=== PATIENT | male | born 1975 | race Caucasian/White ===

== ENCOUNTER 2021-07-06 13:59 | Outpatient (REF) | payer BC, SELFPAY ==
[2021-07-06 16:50] LABS: Alanine Aminotransferase 26 U/L (0-40); Anion Gap 14 (12-20); Aspartate Amino Transferase 21 U/L (5-37); Blood Urea Nitrogen 19 mg/dL (9-16); Calcium 9.7 mg/dL (8.4-10.2); Carbon Dioxide 26 mmol/L (22-29); Chloride 105 mmol/L (96-108); Cholesterol 212 mg/dL; Estimated Glomerular Filt Rate > 60; Glucose Fasting 76 mg/dL (60-99); HDL Cholesterol 50 mg/dL; LDL Cholesterol Calculated 145 mg/dl; Potassium 4.5 mmol/L (3.3-5.1); Sodium 140 mmol/L (135-145); Triglycerides 89 mg/dL
== END 2021-07-06 14:00 | disposition home or self-care (01) ==
LOC: HO.HMGCLDS 13:59
PROVIDERS: PCP Internal Medicine; Visit Provider Internal Medicine
DX: Z00.00 Encounter for general adult medical examination without abnormal findings (principal); E66.9 Obesity, unspecified; I10 Essential (primary) hypertension; R06.83 Snoring; R06.81 Apnea, not elsewhere classified
CPT/HCPCS: 36415; 80048; 80061; 84450; 84460

== ENCOUNTER → 2021-10-02 08:07 | Outpatient (BNVA) | payer BC, SELFPAY | PROVIDERS: PCP Internal Medicine; Referring Provider Internal Medicine; Visit Provider Nurse Practitioner Family ==

== ENCOUNTER → 2021-10-22 15:12 | Outpatient (REF) | payer BC, SELFPAY | LOC: HO.SL 15:12 | PROVIDERS: Visit Provider Nurse Practitioner Family | DX: G47.19 Other hypersomnia (principal); G47.9 Sleep disorder, unspecified; R06.81 Apnea, not elsewhere classified; R06.83 Snoring | CPT/HCPCS: 95806 ==

== ENCOUNTER → 2022-01-01 12:47 | Outpatient (BNVA) | payer BC, SELFPAY | PROVIDERS: PCP Internal Medicine; Referring Provider Internal Medicine; Visit Provider Nurse Practitioner Family ==

== ENCOUNTER → 2022-04-21 19:30 | Outpatient (REF) | payer BC, SELFPAY | LOC: HO.SL 19:30 | PROVIDERS: Visit Provider Nurse Practitioner Family | DX: G47.33 Obstructive sleep apnea (adult) (pediatric) (principal) | CPT/HCPCS: 95811 ==

== ENCOUNTER 2022-10-12 10:23 | Outpatient (REF) | payer BC, SELFPAY ==
--- NOTE | ~2022-10-12 | XR_ITS ---
EXAMINATION: XR KNEE AP STANDING CLINICAL INFORMATION: Right knee pain COMPARISON: None TECHNIQUE: AP and lateral views of both knees obtained. FINDINGS: Right: Bone alignment is normal. No fracture or dislocation. Normal joint spaces. No joint effusion. Left: Bone alignment is normal. No fracture or dislocation. Normal joint spaces. No joint effusion. XR/XR knee standing BI IMPRESSION: Normal knees.
[2022-10-12 13:44] LABS: Alanine Aminotransferase 24 U/L (0-40); Anion Gap 14 (12-20); Aspartate Amino Transferase 21 U/L (5-37); Blood Urea Nitrogen 22 mg/dL (9-16); Calcium 9.9 mg/dL (8.4-10.2); Carbon Dioxide 30 mmol/L (22-29); Chloride 105 mmol/L (96-108); Cholesterol 225 mg/dL; Estimated Glomerular Filt Rate > 60; Glucose Fasting 90 mg/dL (60-99); HDL Cholesterol 54 mg/dL; LDL Cholesterol Calculated 140 mg/dl; Potassium 4.6 mmol/L (3.3-5.1); Sodium 144 mmol/L (135-145); Triglycerides 158 mg/dL
== END 2022-10-12 10:24 | disposition home or self-care (01) ==
LOC: HO.HMGCLDS 10:23
PROVIDERS: PCP Internal Medicine; Visit Provider Internal Medicine
DX: Z00.01 Encounter for general adult medical examination with abnormal findings (principal); M25.562 Pain in left knee; M25.561 Pain in right knee; E66.9 Obesity, unspecified; E78.5 Hyperlipidemia, unspecified
CPT/HCPCS: 36415; 73565; 80048; 80061; 84450; 84460

== ENCOUNTER 2022-10-28 14:00 | Outpatient (RCR) | payer BC, SELFPAY ==
--- NOTE | 2022-10-25 08:06 | MHC.PT.EP ---
[facility] [place] [facility] [place] [facility] [place] [facility] [address] Bradley Horta [address] [phone] F: [phone] F: [phone] F: [phone] F: [phone] Physical Therapy Plan of Care Date of Evaluation: Date of Surgery: Diagnosis: LBP Assessment: 47 y/o male referred to PT with low back pain resulting in pain and difficulty with sitting, standing for prolonged periods, twisting, lifting, and sleeping. S/s consistent with low back with contributions from postural imbalance, decreased core/hip strength, gowers sign from squat and returning from flexion, decreased quad/ piriformis length, and increased pain. Recommend PT 2x/week for 4 weeks to address impairments, implement HEP, and optimize functional mobility Frequency and Duration: The patient will be seen 2x/week for 4 weeks Short Term Goals: 3 weeks 1. Compliant with HEP 2. Compliant with lumbar roll in sitting 3. Improve lumbar AROM flexion to 100% and extension to 75% Product Grader Goals: 5 weeks 1. I with HEP and self management of sx 2. Improve glut med strength to 4/5 B to faciliate standing posture and decrease strain on LB 3. Demonstrate 5-10% improvement in Oswestry (IR 14/35 40% disability) Treatment Plan: Modalities to reduce pain, spasms and effusion. Manual therapy to restore motion and function. Therapeutic exercise to improve strength and flexibility. Neuromuscular re-education for posture and balance. Therapeutic activities to return to functional activities of daily living. Electronically signed by: Hattie Thomas PT Please sign and return to therapist. Thank you for your referral.
--- NOTE | 2022-12-09 07:26 | MHC.PT.DC ---
[facility] [place] [facility] [place] [facility] [place] [facility] [address] Bradley Horta [address] [phone] F: [phone] F: [phone] F: [phone] F: [phone] Physical Therapy Discharge Report Diagnosis: LBP Date of Surgery: Date of Evaluation: 10/25/22 Date of Discharge: 12/09/22 Treatments to Date: 2 Cancellations to Date: 0 No Shows to Date: 1 Discharge Status: Visit Non-compliance Discharge Summary: Pt did not follow up with further visits and is d/c at this time. He had initial HEP but only attended one visit following evaluation and then no showed further visits. Electronically signed by: Hattie Thomas PT Please sign and return to therapist. Thank you for your referral.
== END 2022-12-09 07:26 | disposition home or self-care (01) ==
LOC: HO.PTCHIC 14:00
PROVIDERS: PCP Internal Medicine; Visit Provider Internal Medicine
DX: M54.50 Low back pain, unspecified (principal); M51.36 Other intervertebral disc degeneration, lumbar region
CPT/HCPCS: 97110; 97112; 97161

== ENCOUNTER 2023-10-07 07:56 | Outpatient (AMB) | payer BC, SELFPAY ==
--- NOTE | 2023-10-07 08:10 | A.OFFPC_ITS ---
Vital Signs 10/07/23 08:11 Height 6 ft 2 in Weight 268 lb BMI 34.4 BP 110/70 Blood Pressure Location Rt brachial Position Sitting Pulse 69 Pulse Source Pulse Oximeter Pulse Oximetry (%) 97 Oxygen Delivery Method Room Air Intake Visit Reasons: annual PE Intake Note: Pt is here today for his PE Allergies No Known Allergies [No Known Allergies*] Allergy (Verified 10/07/23 08:16) Medication List - Last Reconciled 10/07/23 by Umm Gonzalez MD No Known Home Meds Tobacco use date assessed: 10/07/23 Dental Screening Dental Screen Date: 10/07/23 Did you have a dental visit in the last 12 months?: Yes Did you have a dental problem in the last 6 months where you did not have access to dental care?: No Was dental information given to patient?: Patient has dentist HPI annual PE HPI Details 48-year-old male with dyslipidemia, obst ructive sleep apnea, and obesity, presents today for his physical exam. He was diagnosed to have obstructive sleep apnea last year, was prescribed a nasal mask but was unable to use it consistently due to his irregular work schedule, where in he has to be out at different times of the day and night , and had to return it to the sleep lab. He has been feeling well however, tries to cut back on his carbohydrate intake, but has not been able to do any regular exercise, states that he is too busy at work. He is overdue to get his screening colonoscopy, will be getting it at the [facility], and states he will schedule own appointment. He has not had any COVID vaccinations, and does not want to get a flu vaccine or any other vaccines. 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 Has been having recurrent pain in both knees, which started ever since he had surgery for repair of a meniscal tear in his right knee done [place] [facility] [facility] Medical History (Updated 10/07/23 @ 08:22 by Umm Gonzalez MD) Dyslipidemia Lumbar degenerative disc disease Obesity (BMI 30.0-34.9) Surgical History H/O right knee surgery H/O shoulder surgery Family History Mother No problems noted. Father No problems noted. Social History Housing: House Alcohol intake: current Alcohol intake frequency: a few times a week Alcohol type: beer Patient Tobacco Use Status: Never used Tobacco e-Cigarette/Vaping Use: Never Used Second Hand Smoke Exposure: No service: Yes Current occupational status: employed Cognitive needs: No Hearing needs: No Vision needs: No Questionnaire PHQ-9 Over the last 2 weeks, how often have you been bothered by any of the following problems? 1. Little interest or pleasure in doing things: not at all 2. Feeling down, depressed, or hopeless: not at all 3. Trouble falling or staying asleep, or sleeping too much: not at all 4. Feeling tired or having little energy: not at all 5. Poor appetite or overeating: not at all 6. Feeling bad about yourself - or that you are a failure or have let yourself or your family down: not at all 7. Trouble concentrating on things, such as reading the newspaper or watching television: not at all 8. Moving or speaking so slowly that other people could have noticed. Or the opposite - being so fidgety or restless that you have been moving around a lot more than usual: not at all 9. Thoughts that you would be better off or of hurting yourself in some way: not at all Total score: 0 Depression Screening Interpretation: Negative Depression Screening Done: Yes 89892 - PHQ-9 Billing: Yes Source: Developed by Drs. Yogi Aldridge, Clarissa Mullins, Hesham Andrea and colleagues, with an educational gregory from [employer]. Thrive Questionnaire Date Thrive assessed: 10/07/23 I am a: Patient What is your living situation today?: I have a steady place to live Within the past 12 months, did the food you bought not last and you didn't have the money to get more?: Never true Within the past 12 months, did you worry whether your food would run out before you got money to buy more?: Never true Do you have trouble paying for medicines?: No Do you have trouble getting transportation to medical appointments?: No Do you have trouble paying your heating and electricity bill?: No Do you have trouble taking care of your child, family member or friend?: No Do you have trouble with day-to-day activities such as bathing, preparing meals, shopping, managing finances, etc.?: No Are you currently unemployed and looking for a job?: No Are you interested in more education?: No AUDIT C Alcohol Use Questionnaire (AUDIT-C) 1. How often do you have a drink containing alcohol?: 2-3 times a week 2. How many drinks containing alcohol do you have on a typical day when you are drinking?: 1 or 2 Total Score: 3 CECILIO-7 AMB Questionnaire CECILIO-7 Date CECILIO - 7 assessed: 10/07/23 Feeling nervous, anxious, or on edge: 0 = Not at all Not being able to stop or control worryin = Not at all Worrying too much about different things: 0 = Not at all Trouble relaxin = Not at all Being so restless that it is hard to sit still: 0 = Not at all Becoming easily annoyed or irritable: 0 = Not at all Feeling afraid as if something awful might happen: 0 = Not at all Total CECILIO-7 score (0-4 normal; 5-9 mild; 10-14 moderate; 15-21 severe): 0 Source: Developed by Drs. Yogi Aldridge, Clarissa Mullins, Hesham Andrea and colleagues, with an educational gregory from [employer]. CECILIO-7 Assessment Billing CECILIO-7 Assessment Tool: CECILIO-7 Assessment 11674 Review of Systems Const Denies fatigue, Denies fever(s), Denies headache(s), Reports snoring and Denies weakness Eyes Details: Up-to-date, seen by Dr. Thornton 2 weeks ago Denies change in vision ENT Denies dizziness, Denies headache(s), Denies nasal congestion, Denies nasal discharge and Denies sore throat Card Denies chest pain, Denies lightheadedness, Denies palpitations and Denies dyspnea Resp Denies chest congestion, Denies cough, Denies dyspnea, Reports snoring and Denies wheezing GI Denies abdominal pain, Denies change in bowel habits and Denies heartburn Denies dysuria, Denies urinary frequency and Denies urinary urgency Musc Reports as per HPI Skin/Breast Denies lesions and Denies rash Neuro Denies dizziness, Denies headache(s) and Denies weakness Psych Reports no additional complaints Endo Denies fatigue, Denies polydipsia, Denies polyuria and Denies palpitations Kane/Lymph Denies easy bruising Aller/Immun Denies seasonal rhinorrhea and Denies wheezing Physical exam (Primary Care) Vital Signs: Last Vital Signs Pulse 69 10/07/23 08:11 BP 110/70 10/07/23 08:11 Pulse Ox 97 10/07/23 08:11 Oxygen Delivery Method Room Air 10/07/23 08:11 BMI result Body Mass Index 34.4 BMI Assessment/Plan discussion: High BMI High, discussed plan: lifestyle, weight reduction, dietary and physical activity Tobacco/Smoking Status: Tobacco use Status Tobacco use date assessed 10/07/23 10/07/23 08:14 Patient Tobacco Use Status Never used Tobacco 10/07/23 08:14 e-Cigarette/Vaping Use Never Used 10/07/23 08:14 PHQ-9: PHQ-9 Score PHQ-9: Total score 0 10/07/23 08:22 Depression Screening Interpretation: Negative Thrive Assessment: Date of Thrive Assessment Date Thrive assessed 10/07/23 10/07/23 08:14 Const General: cooperative, comfortable and no acute distress Nutritional Appearance: obese Orientation/consciousness: patient oriented x3 HENMT Ears: hearing grossly normal bilaterally, external ears normal, TM's normal bilaterally and EAC's normal General nose exam: Normal external nose present and No nasal discharge present Mouth: Normal oral and palatal mucosa present, oropharynx normal and moist mucous membranes Eyes General: appearance normal, both eyes and all related structures Conjunctivae: conjunctivae normal Pupils: Equal, round and reactive pupils present EOM: EOMs intact bilaterally Neck Neck: Yes full ROM, Yes no lymphadenopathy and Yes supple Chest Chest palpation & inspection: normal inspection of the chest Resp Effort & Inspection: normal respiratory effort and able to speak in complete sentences Auscultation: clear to auscultation bilaterally Cardio Rate: regular rate Rhythm: regular rhythm Heart sounds: S1 normal heart sound present and S2 normal heart sound present GI Inspection: Yes normal to inspection Palpation (GI): Soft to palpation, nontender and no masses Auscultation: normal bowel sounds Male General Exam: Yes normal external exam Back/Spine/Pelvis Cervical Spine: cervical ROM normal Thoracic/Lumbar Spine: thoracic and lumbar spine normal to inspection and straight leg raise negative bilaterally Skin General skin exam: no rashes or lesions noted Neuro General: patient oriented x3, gait normal, tone normal, moves all extremities, Normal light touch and pain sensation and no focal motor deficits Cranial nerves: Yes Equal, round and reactive pupils present Cognition (Neuro): normal cognition Gait exam (Neuro): Normal gait present Motor exam (neuro): 5/5 motor strength present throughout Extrem General: Yes normal to inspection, Yes full ROM, Yes no joint enlargement, Yes no pedal edema, Yes no calf tenderness, Yes normal gait and Yes other (Crepitus noted in both knees) Psych Appearance: grossly normal Mental Status: mental status grossly normal Speech and movement: Normal speech and movement present Affect: normal affect Attitude: cooperative Thought process: Normal thought process present Assessment and Plan Assessment & Plan (1) Annual visit for general adult medical examination with abnormal findings: Code(s): Z00.01 - Encounter for general adult medical examination with abnormal findings Plan: Will check appropriate labs. Continue regular dental visit every 6 months and regular eye exams, at least every 2 years. Take adequate calcium in diet and vitamin-D 3 at 2000 IU per cap once a day, in addition to weight-bearing exercises to help maintain good muscle tone and weight control. Instructed to do self-testicular exam to check for any mass. Patient states he will schedule his screening colonoscopy at the [facility]. Refuses get any vaccination (2) Obstructive sleep apnea (adult) (pediatric): Comment: Total AHI was 30.hr, supine AHI was 60/hr and oxygen ciaran was 76%. Code(s): G47.33 - Obstructive sleep apnea (adult) (pediatric) Plan: Advised to lose weight, lie on his side when sleeping, unable to use mask due to irregular sleep schedule. (3) Obesity (BMI 30.0-34.9): Code(s): E66.9 - Obesity, unspecified Plan: Discussed need to increase activity and weight reduction. Recommended focusing on improving health instead of dieting. Mediterranean diet is a healthy diet that helps, limit food high in fat, sugar, and calories. Eat slowly, pay attention to portion sizes, plan your meals ahead of time, start regular physical activity, at least 150 minutes of moderate intensity exercise, or 90 minutes per week of vigorous exercise. Keeping a food diary, tracking what you eat and your physical activity can help assess what improvements you can make. There are many health problems associated with being overweight/obese, so it is important to improve your diet and exercise. (4) Dyslipidemia: Code(s): E78.5 - Hyperlipidemia, unspecified Plan: Fasting lipid panel ordered Orders: Orders Basic Metabolic Panel Fasting 10/07/23 E66.9 - Obesity, unspecified, E78.5 - Hyperlipidemia, unspecified, G47.33 - Obstructive sleep apnea (adult) (pediatric), Z00.01 - Encounter for general adult medical examination with abnormal findings Lipid Panel 10/07/23 E66.9 - Obesity, unspecified, E78.5 - Hyperlipidemia, unspecified, G47.33 - Obstructive sleep apnea (adult) (pediatric), Z00.01 - Encounter for general adult medical examination with abnormal findings Alanine Aminotransferase 10/07/23 E66.9 - Obesity, unspecified, E78.5 - Hyperlipidemia, unspecified, G47.33 - Obstructive sleep apnea (adult) (pediatric), Z00.01 - Encounter for general adult medical examination with abnormal findings Aspartate Amino Transferase 10/07/23 E66.9 - Obesity, unspecified, E78.5 - Hyperlipidemia, unspecified, G47.33 - Obstructive sleep apnea (adult) (pediatric), Z00.01 - Encounter for general adult medical examination with abnormal findings Coding Level of Care Code Est Pt Prev Care 40-64y(78458) Diagnoses Annual visit for general adult medical examination with abnormal findings Z00.01 Obstructive sleep apnea (adult) (pediatric) G47.33 Obesity (BMI 30.0-34.9) E66.9 Dyslipidemia E78.5 Additional Codes CECILIO-7 Assessment Billing - CECILIO-7 Assessment Tool: CECILIO-7 Assessment 72730 ([id number])
[2023-10-07 08:11] VITALS: BP 110/70; PULSE 69; O2SAT 97; BMI 34.4
== END 2023-10-07 10:21 | disposition home or self-care (01) ==
PROVIDERS: Visit Provider Internal Medicine
DX: Z00.00 Encounter for general adult medical examination without abnormal findings (principal); G47.33 Obstructive sleep apnea (adult) (pediatric); E66.9 Obesity, unspecified; Z68.34 Body mass index [BMI] 34.0-34.9, adult; E78.5 Hyperlipidemia, unspecified
CPT/HCPCS: 99396

== ENCOUNTER 2023-10-07 08:45 | Outpatient (REF) | payer BC, SELFPAY ==
[2023-10-07 12:09] LABS: Alanine Aminotransferase 18 U/L (0-40); Anion Gap 11 (12-20); Aspartate Amino Transferase 18 U/L (5-37); Blood Urea Nitrogen 21 mg/dL (9-16); Carbon Dioxide 30 mmol/L (22-29); Chloride 108 mmol/L (96-108); Cholesterol 193 mg/dL (<200); Estimated Glomerular Filt Rate > 60; Glucose Fasting 92 mg/dL (60-99); HDL Cholesterol 42 mg/dL (>40); LDL Cholesterol Calculated 131 mg/dL (<100); Potassium 4.9 mmol/L (3.3-5.1); Sodium 144 mmol/L (135-145); Triglycerides 102 mg/dL (<150)
== END 2023-10-07 08:46 | disposition home or self-care (01) ==
LOC: HO.HMGCLDS 08:45
PROVIDERS: PCP Internal Medicine; Visit Provider Internal Medicine
DX: Z00.01 Encounter for general adult medical examination with abnormal findings (principal); E78.5 Hyperlipidemia, unspecified; G47.33 Obstructive sleep apnea (adult) (pediatric); E66.9 Obesity, unspecified
CPT/HCPCS: 36415; 80048; 80061; 84450; 84460

== ENCOUNTER 2024-10-14 08:50 | Outpatient (AMB) | payer BC, SELFPAY ==
--- NOTE | 2024-10-14 08:57 | AM.OFFWIN_ITS ---
Intake Vital Signs 10/14/24 08:59 Weight 275 lb BP 112/80 Blood Pressure Location Rt brachial Position Sitting Pulse 78 Pulse Source Pulse Oximeter Pulse Oximetry (%) 97 Oxygen Delivery Method Room Air Intake Visit Reasons: EP-lt knee hurt Intake Note: Patient here for left knee pain that started being bothersome on friday. no known injuries. Patient Tobacco Use Status: Never used Tobacco Allergies No Known Allergies [No Known Allergies*] Allergy (Verified 10/14/24 08:59) Do you need a note to return to daycare/school/sports/work: Yes HPI EP-lt knee hurt HPI Details This note is constructed using voice recognition software. While every effort has been made to ensure accuracy, coach tour driver errors may have been included. The patient is a 49 year old male who presents to the clinic today with left knee pain since Friday without specific injury. He denies any previous injury or surgery to the area. He denies swelling, redness, warmth. He reports that he woke up on Friday and the medial aspect of the knee was painful, and he has a very slight limp since. He reports that he has torn the meniscus in his right knee, and it feels similar but less intense than that. He has not tried anything for treatment. He works 2 jobs, both on his feet all day. He has been able to continue to work despite his pain. He denies numbness and tingling in his feet. He denies any loss of range of motion or strength. [facility] Medical History Dyslipidemia Lumbar degenerative disc disease Obesity (BMI 30.0-34.9) Surgical History H/O right knee surgery H/O shoulder surgery Family History Mother No problems noted. Father No problems noted. Social History Housing: House Alcohol intake: current Alcohol intake frequency: a few times a week Alcohol type: beer Patient Tobacco Use Status: Never used Tobacco e-Cigarette/Vaping Use: Never Used Second Hand Smoke Exposure: No service: Yes Current occupational status: employed Cognitive needs: No Hearing needs: No Vision needs: No Review of Systems Const All systems reviewed & are unremarkable except as noted in HPI and below Physical Exam Vital Signs: Last Vital Signs Pulse 78 10/14/24 08:59 BP 112/80 10/14/24 08:59 Pulse Ox 97 10/14/24 08:59 Oxygen Delivery Method Room Air 10/14/24 08:59 Const General: cooperative, healthy appearing, comfortable, no acute distress and well developed Orientation/consciousness: patient oriented x3 Limitations: no limitations Resp Effort & Inspection: normal respiratory effort and able to speak in complete sentences Skin General skin exam: no rashes or lesions noted Neuro General: patient oriented x3 Extrem Other: Left knee full range of motion. Medial joint line tenderness on varus maneuver. No areas tender to palpation. No ecchymosis, erythema, or edema. Strength 5/5. Distal neurovascular exam intact. General: Yes normal to inspection Assessment & Plan Assessment & Plan (1) Strain of left knee: Code(s): S86.912A - Strain of unspecified muscle(s) and tendon(s) at lower leg level, left leg, initial encounter Qualifiers: Encounter type: initial encounter Qualified Code(s): S86.912A - Strain of unspecified muscle(s) and tendon(s) at lower leg level, left leg, initial encounter Plan: Advised rest, ice, compression, elevation, and NSAIDs for pain management. Given lack of specific injury or pain over the specific bones, imaging not indicated at this time. May benefit from physical therapy with prolonged symptoms. Advised patient to follow up with PCP as needed or worsening or with failure to resolve. Plan See above for full details and plan. Coding Level of Care Code Est Pt Level 3 (84692) Diagnoses Strain of left knee, initial encounter S86.912A Encounter type: initial encounter
[2024-10-14 08:59] VITALS: BP 112/80; PULSE 78; O2SAT 97
== END 2024-10-14 10:17 | disposition home or self-care (01) ==
PROVIDERS: PCP Internal Medicine; Visit Provider Registered Nurse
DX: S86.912A Strain of unspecified muscle(s) and tendon(s) at lower leg level, left leg, initial encounter (principal)

== ENCOUNTER → 2024-10-14 08:50 | Outpatient (BNVA) | payer BC, SELFPAY | PROVIDERS: PCP Internal Medicine; Visit Provider Registered Nurse ==

== ENCOUNTER 2024-10-18 08:36 | Outpatient (REF) | payer BC, SELFPAY ==
[2024-10-18 13:27] LABS: MANUAL DIFF FLAG NO
[2024-10-18 13:39] LABS: Basophils Percent Auto 0.4 % (0-2); Eosinophils Absolute Auto 0.1 X10*3/uL (0.0-0.4); Eosinophils Percent Auto 1.5 % (0-4); Hemoglobin 15.8 g/dl (14.0-18.0); Lymphocytes Absolute Auto 1.8 X10*3/uL (1.2-4.9); Lymphocytes Percent Auto 38.9 % (20-40); Mean Corpuscular HGB Conc 34.3 g/dl (31.0-36.0); Mean Corpuscular Hemoglobin 31.5 pg (27.0-33.0); Mean Corpuscular Volume 91.6 fL (80.0-98.0); Mean Platelet Volume 10.4 fL (9.4-12.4); Monocytes Absolute Auto 0.3 X10*3/uL (0.1-1.2); Monocytes Percent Auto 6.6 % (2-11); Neutrophils Absolute Auto 2.5 x10*3/uL (2.0-8.3); Neutrophils Percent Auto 52.6 % (45-73); Platelet Count 267 X10*3/uL (160-400); Red Blood Count 5.02 X10*6/uL (4.60-5.80); Red Cell Distribution Width 12.7 % (11.0-16.0); White Blood Count 4.7 X10*3/uL (4.8-10.8)
[2024-10-18 14:10] LABS: Anion Gap 14 (12-20); Blood Urea Nitrogen 20 mg/dL (9-16); Calcium 9.8 mg/dL (8.4-10.2); Carbon Dioxide 26 mmol/L (22-29); Chloride 106 mmol/L (96-108); Cholesterol 213 mg/dL (<200); Estimated Glomerular Filt Rate > 60; Glucose Fasting 93 mg/dL (60-99); HDL Cholesterol 47 mg/dL (>40); LDL Cholesterol Calculated 148 mg/dL (<100); Potassium 4.3 mmol/L (3.3-5.1); Sodium 142 mmol/L (135-145); TSH reflex Free T4 2.67 uIU/mL (0.32-4.0); Triglycerides 91 mg/dL (<150)
[2024-10-27 14:14] LABS: Testosterone, Free 49.7 pg/mL (35.0-155.0); Testosterone, Total 266 ng/dL (250-1100)
== END 2024-10-18 08:37 | disposition home or self-care (01) ==
LOC: HO.HMGCLDS 08:36
PROVIDERS: PCP Internal Medicine; Visit Provider Internal Medicine
DX: Z00.01 Encounter for general adult medical examination with abnormal findings (principal); E66.9 Obesity, unspecified; Z68.34 Body mass index [BMI] 34.0-34.9, adult; E78.5 Hyperlipidemia, unspecified; R53.81 Other malaise; R12 Heartburn; K21.9 Gastro-esophageal reflux disease without esophagitis; Z71.89 Other specified counseling; Z28.20 Immunization not carried out because of patient decision for unspecified reason
CPT/HCPCS: 36415; 80048; 80061; 84402; 84403; 84443; 85025; 96127

== ENCOUNTER 2024-10-18 08:45 | Outpatient (AMB) | payer BC, SELFPAY ==
--- NOTE | 2024-10-18 08:45 | A.OFFPC_ITS ---
Vital Signs 10/18/24 08:54 Height 6 ft 2 in Weight 272 lb BMI 34.9 BP 114/78 Blood Pressure Location Rt brachial Position Sitting Pulse 73 Pulse Source Pulse Oximeter Pulse Oximetry (%) 98 Oxygen Delivery Method Room Air Intake Visit Reasons: annual PE - see comments Intake Note: Pt is here today for his PE Allergies No Known Allergies [No Known Allergies*] Allergy (Verified 10/18/24 09:31) Medication List - Last Reconciled 10/18/24 by Umm Gonzalez MD No Known Home Meds Tobacco use date assessed: 10/18/24 Dental Screening Dental Screen Date: 10/18/24 HPI annual PE - see comments HPI Details 49-year-old male here today for physical exam. Complains of recurrent heartburn symptoms, currently not on any medications, heartburn symptoms usually occur at night. Has history of dyslipidemia, currently not on any medications and not following any diet or having any regular exercise. Complains of low energy levels. Overdue for his colon cancer screening. Does not want to get any vaccines [facility] Medical History (Updated 10/18/24 @ 09:58 by Umm Gonzalez MD) Vaccine refused by patient Chronic heartburn Dyslipidemia Lumbar degenerative disc disease Obesity (BMI 30.0-34.9) Surgical History H/O right knee surgery H/O shoulder surgery Family History Mother No problems noted. Father No problems noted. Social History Housing: House Alcohol intake: current Alcohol intake frequency: a few times a week Alcohol type: beer Patient Tobacco Use Status: Never used Tobacco e-Cigarette/Vaping Use: Never Used Second Hand Smoke Exposure: No service: Yes Current occupational status: employed Cognitive needs: No Hearing needs: No Vision needs: No Questionnaire PHQ-9 Over the last 2 weeks, how often have you been bothered by any of the following problems? 1. Little interest or pleasure in doing things: not at all 2. Feeling down, depressed, or hopeless: not at all 3. Trouble falling or staying asleep, or sleeping too much: not at all 4. Feeling tired or having little energy: not at all 5. Poor appetite or overeating: not at all 6. Feeling bad about yourself - or that you are a failure or have let yourself or your family down: not at all 7. Trouble concentrating on things, such as reading the newspaper or watching television: not at all 8. Moving or speaking so slowly that other people could have noticed. Or the opposite - being so fidgety or restless that you have been moving around a lot more than usual: not at all 9. Thoughts that you would be better off or of hurting yourself in some way: not at all Total score: 0 Depression Screening Interpretation: Negative Depression Screening Done: Yes 29760 - PHQ-9 Billing: Yes Source: Developed by Drs. Yogi Aldridge, Clarissa Mullins, Hesham Andrea and colleagues, with an educational gregory from [employer]. Thrive Questionnaire Date Thrive assessed: 10/18/24 I am a: Patient What is your living situation today?: I have a steady place to live Within the past 12 months, did the food you bought not last and you didn't have the money to get more?: Never true Within the past 12 months, did you worry whether your food would run out before you got money to buy more?: Never true Do you have trouble paying for medicines?: No Do you have trouble getting transportation to medical appointments?: No Do you have trouble paying your heating and electricity bill?: No Do you have trouble taking care of your child, family member or friend?: No Do you have trouble with day-to-day activities such as bathing, preparing meals, shopping, managing finances, etc.?: No Are you currently unemployed and looking for a job?: No Are you interested in more education?: No THRIVE Score: 0 AUDIT C Alcohol Use Questionnaire (AUDIT-C) 1. How often do you have a drink containing alcohol?: Monthly or less 2. How many drinks containing alcohol do you have on a typical day when you are drinking?: 1 or 2 3. How often do you have six or more drinks on one occasion?: Never Total Score: 1 CECILIO-7 AMB Questionnaire CECILIO-7 Date CECILIO - 7 assessed: 10/18/24 Feeling nervous, anxious, or on edge: 0 = Not at all Not being able to stop or control worryin = Not at all Worrying too much about different things: 0 = Not at all Trouble relaxin = Not at all Being so restless that it is hard to sit still: 0 = Not at all Becoming easily annoyed or irritable: 0 = Not at all Feeling afraid as if something awful might happen: 0 = Not at all Total CECILIO-7 score (0-4 normal; 5-9 mild; 10-14 moderate; 15-21 severe): 0 Source: Developed by Drs. Yogi Aldridge, Clarissa Mullins, Hesham Andrea and colleagues, with an educational gregory from [employer]. CECILIO-7 Assessment Billing CECILIO-7 Assessment Tool: CECILIO-7 Assessment 14556 Review of Systems Const Denies fever(s), Denies headache(s) and Denies weakness Eyes Details: Up-to-date, sees Dr. Thornton Denies change in vision ENT Denies dizziness, Denies headache(s), Denies nasal congestion, Denies nasal discharge and Denies sore throat Card Denies chest pain, Denies lightheadedness, Denies palpitations and Denies dyspnea Resp Denies chest congestion, Denies cough, Denies dyspnea and Denies wheezing GI Denies abdominal pain, Denies change in bowel habits and Denies heartburn Denies dysuria, Denies urinary frequency and Denies urinary urgency Musc Reports as per HPI Skin/Breast Denies lesions and Denies rash Neuro Denies dizziness, Denies headache(s) and Denies weakness Psych Reports no additional complaints Endo Denies polydipsia, Denies polyuria and Denies palpitations Kane/Lymph Denies easy bruising Aller/Immun Denies seasonal rhinorrhea and Denies wheezing Physical exam (Primary Care) Vital Signs: Last Vital Signs Pulse 73 10/18/24 08:54 BP 114/78 10/18/24 08:54 Pulse Ox 98 10/18/24 08:54 Oxygen Delivery Method Room Air 10/18/24 08:54 BMI result Body Mass Index 34.9 BMI Assessment/Plan discussion: High BMI High, discussed plan: lifestyle, weight reduction, dietary and physical activity Tobacco/Smoking Status: Tobacco use Status Tobacco use date assessed 10/18/24 10/18/24 08:46 Patient Tobacco Use Status Never used Tobacco 10/18/24 08:46 e-Cigarette/Vaping Use Never Used 10/18/24 08:46 PHQ-9: PHQ-9 Score PHQ-9: Total score 0 10/24/24 18:56 Depression Screening Interpretation: Negative Thrive Assessment: Date of Thrive Assessment Date Thrive assessed 10/18/24 10/18/24 08:57 Advance Care Planning discussion: Completed/Scanned Date of discussion: 10/18/24 Who was present: Patient Forms completed: Health Care Proxy Time spent: 16-45 minutes Actual minutes spent: 3 Const General: cooperative, comfortable and no acute distress Nutritional Appearance: obese Orientation/consciousness: patient oriented x3 HENMT Ears: external ears normal, TM's normal bilaterally and EAC's normal General nose exam: Normal external nose present and No nasal discharge present Mouth: Normal oral and palatal mucosa present, oropharynx normal and moist mucous membranes Eyes General: appearance normal, both eyes and all related structures Conjunctivae: conjunctivae normal Pupils: Equal, round and reactive pupils present EOM: EOMs intact bilaterally Neck Neck: Yes full ROM, Yes no lymphadenopathy and Yes supple Chest Chest palpation & inspection: normal inspection of the chest Resp Effort & Inspection: normal respiratory effort and able to speak in complete sentences Auscultation: clear to auscultation bilaterally Cardio Rate: regular rate Rhythm: regular rhythm Heart sounds: S1 normal heart sound present and S2 normal heart sound present GI Inspection: Yes normal to inspection Palpation (GI): Soft to palpation, nontender and no masses Auscultation: normal bowel sounds Male General Exam: Yes normal external exam Back/Spine/Pelvis Cervical Spine: cervical ROM normal Thoracic/Lumbar Spine: thoracic and lumbar spine normal to inspection and straight leg raise negative bilaterally Skin General skin exam: no rashes or lesions noted Neuro General: patient oriented x3, gait normal, tone normal, moves all extremities, Normal light touch and pain sensation and no focal motor deficits Cranial nerves: Yes Equal, round and reactive pupils present Cognition (Neuro): normal cognition Gait exam (Neuro): Normal gait present Motor exam (neuro): 5/5 motor strength present throughout Extrem General: Yes normal to inspection, Yes full ROM, Yes no joint enlargement, Yes no pedal edema, Yes no calf tenderness, Yes normal gait and Yes other (Crepitus noted in both knees) Psych Appearance: grossly normal Mental Status: mental status grossly normal Speech and movement: Normal speech and movement present Affect: normal affect Attitude: cooperative Thought process: Normal thought process present Coding Level of Care Code Est Pt Prev Care 40-64y(83304) Diagnoses Annual visit for general adult medical examination with abnormal findings Z00.01 Obesity (BMI 30.0-34.9) E66.9 Dyslipidemia E78.5 Encounter for counseling regarding advance directives Z71.89 Malaise R53.81 Chronic heartburn R12 Encounter for screening for malignant neoplasm of colon Z12.11 Vaccine refused by patient Z28.20 Additional Codes CECILIO-7 Assessment Billing - CECILIO-7 Assessment Tool: CECILIO-7 Assessment 16542 ([id number]) PHQ-9 - 08676 - PHQ-9 Billing: Yes ([id number]) Vital Signs *Quality* - Advance Care Planning discussion: Completed/Scanned ([id number]) Vital Signs *Quality* - Time spent: 16-45 minutes ([id number]) Assessment & Plan Assessment & Plan (1) Annual visit for general adult medical examination with abnormal findings: Code(s): Z00.01 - Encounter for general adult medical examination with abnormal findings (2) Obesity (BMI 30.0-34.9): Code(s): E66.9 - Obesity, unspecified Category: Medical (3) Dyslipidemia: Code(s): E78.5 - Hyperlipidemia, unspecified Category: Medical (4) Encounter for counseling regarding advance directives: Code(s): Z71.89 - Other specified counseling Plan: Initiated the conversation about Advanced Directives. Advanced Directives help patients prepare for current and future decisions about their medical treatment and place of care. Discussed with patient that it is a process where a patients current condition and prognosis are reviewed, their wishes for information regarding their illness are elicited, and likely medical dilemmas are presented and options discussed. Healthcare proxy form completed today. The form can be amended as needed, reviewed yearly and make changes as needed (5) Malaise: Code(s): R53.81 - Other malaise (6) Chronic heartburn: Code(s): R12 - Heartburn Category: Medical (7) Encounter for screening for malignant neoplasm of colon: Code(s): Z12.11 - Encounter for screening for malignant neoplasm of colon (8) Vaccine refused by patient: Code(s): Z28.20 - Immunization not carried out because of patient decision for unspecified reason Category: Medical Plan - fasting lipid panel basic metabolic panel ordered, and reiterated dietary modification and physical activity. - Gastroesophageal Reflux Disease: Suggested trial of Pepcid AC to manage nighttime heartburn. - Low Energy/Fatigue: Initiate thyroid and anemia screenings; review sleep hygiene practices and address stress management. Assess testosterone levels to rule out hypogonadism; explore lifestyle interventions and detailed history for potential endocrine referral. - A colonoscopy was recommended over Cologuard for thorough cancer screening, and I informed the patient about the step-scott process involved in preparation and execution of the colon procedure. -declined offered vaccinations Patient was informed and verbally consented to the use of an ambient scribe for clinic note documentation during this visit. Orders: Orders Lipid Panel 10/18/24 E66.9 - Obesity, unspecified, E78.5 - Hyperlipidemia, unspecified, R53.81 - Other malaise, Z00.01 - Encounter for general adult medical examination with abnormal findings, Z71.89 - Other specified counseling Basic Metabolic Panel Fasting 10/18/24 E66.9 - Obesity, unspecified, E78.5 - Hyperlipidemia, unspecified, R53.81 - Other malaise, Z00.01 - Encounter for general adult medical examination with abnormal findings, Z71.89 - Other specified counseling TSH reflex Free T4 10/18/24 E66.9 - Obesity, unspecified, E78.5 - Hyperlipidemia, unspecified, R53.81 - Other malaise, Z00.01 - Encounter for general adult medical examination with abnormal findings, Z71.89 - Other specified counseling Testosterone, Free/Total 10/18/24 E66.9 - Obesity, unspecified, E78.5 - Hyperlipidemia, unspecified, R53.81 - Other malaise, Z00.01 - Encounter for general adult medical examination with abnormal findings, Z71.89 - Other specified counseling Complete Blood Count Auto Diff 10/18/24 E66.9 - Obesity, unspecified, E78.5 - Hyperlipidemia, unspecified, R53.81 - Other malaise, Z00.01 - Encounter for general adult medical examination with abnormal findings, Z71.89 - Other specified counseling Referrals Gastroenterology Referral R12 - Heartburn, Z12.11 - Encounter for screening for malignant neoplasm of colon
[2024-10-18 08:54] VITALS: BP 114/78; PULSE 73; O2SAT 98; BMI 34.9
== END 2024-10-18 09:54 | disposition home or self-care (01) ==
PROVIDERS: PCP Internal Medicine; Visit Provider Internal Medicine
DX: Z00.00 Encounter for general adult medical examination without abnormal findings (principal); E66.9 Obesity, unspecified; Z68.32 Body mass index [BMI] 32.0-32.9, adult; E78.5 Hyperlipidemia, unspecified; Z71.89 Other specified counseling; R53.81 Other malaise; R12 Heartburn; Z12.11 Encounter for screening for malignant neoplasm of colon; Z28.20 Immunization not carried out because of patient decision for unspecified reason

== ENCOUNTER 2025-03-30 09:21 | Outpatient (AMB) | payer BC, SELFPAY ==
[2025-03-30 09:22] VITALS: BP 138/83; PULSE 67; O2SAT 96; BMI 35.3
--- NOTE | 2025-03-30 09:22 | MHC.OFFVIS ---
Vital Signs 03/30/25 09:22 Height 6 ft 2 in Weight 275 lb 2.19 oz BMI 35.3 BP 138/83 Blood Pressure Location Lt brachial Position Sitting Pulse 67 Pulse Source Pulse Oximeter Pulse Oximetry (%) 96 Oxygen Delivery Method Room Air Intake Visit Reasons: Colonoscopy Screening/ Acid Reflux Intake Note: Pt presents to the office today for a colonoscopy screening/ Acid reflux Allergies No Known Allergies [No Known Allergies*] Allergy (Verified 03/30/25 09:22) HPI HPI Colonoscopy Screening/ Acid Reflux: Details: 50-year-old male here for preprocedural meeting to discuss a screening colonoscopy and for initial evaluation of GERD. He is referred by Umm Gonzalez. PMX PRITESH Obesity High cholesterol Chronic GERD Lumbar degenerative disc disease GEneralized OA of knees and ankles * SURGICAL HISTORY Right knee meniscus repair Left shoulder surgery - bicep tendon repair and rotator cuff repair * ALLERGIES: NKDA * [employer]: No recent/relevant labs or imaging. TODAY'S VISIT This is his first colonoscopy. He has had intermittent GERD for a couple of years. He has taken TUMS at bedtime, with mixed effectiveness. HB is is 3-4 times a day and various times not just NOC. He can't ID trigger foods - even gets it with water fasts. No dysphagia, no dyspepsia, no known FHX of similar sx, no stomach or esophageal cancer.. He has not been as active with his joint problems and has tried to lose weight w/o success r/t life and business. He only moves his bowels about 1-2 times a week with soft stools, unsure if he has incomplete evacuation. He has had episodes of [facility] and [facility]. He has PRITESH but denies any other resp or cardiac problems. No anes or sed problems. No ID problems. There is no known FHX of CRC or polyps. [facility] Medical History Vaccine refused by patient Chronic heartburn Dyslipidemia Lumbar degenerative disc disease Obesity (BMI 30.0-34.9) Surgical History H/O right knee surgery H/O shoulder surgery Family History Mother No problems noted. Father No problems noted. Social History Housing: House Alcohol intake: current Alcohol intake frequency: a few times a week Alcohol type: beer Patient Tobacco Use Status: Never used Tobacco e-Cigarette/Vaping Use: Never Used Second Hand Smoke Exposure: No service: Yes Current occupational status: employed Cognitive needs: No Hearing needs: No Vision needs: No Review of Systems Const Denies fatigue, Denies fever(s), Denies night sweats, Denies poor appetite and Denies weight loss ENT Reports Normal hearing present, Denies dental pain, Denies dysphagia, Denies hearing loss, Denies mouth pain, Denies odynophagia, Denies throat swelling, Denies tongue swelling and Reports other (Dentition adequate) Card Reports no additional complaints Resp Reports no additional complaints GI Details: Denies abdominal pain, Denies melena, Denies bloating, Denies hematochezia, Denies constipation, Denies GI cramping, Denies dysphagia, Denies excessive flatus, Denies early satiety, Reports heartburn, Denies diarrhea, Denies nausea, Denies odynophagia, Denies vomiting and Denies hematemesis Skin/Breast Denies pruritus, Denies lesions, Denies rash and Denies jaundice Neuro Reports Normal hearing present and Denies Abnormal speech present Endo Denies fatigue Aller/Immun Denies throat swelling and Denies tongue swelling Physical Exam Vital Signs: Last Vital Signs Pulse 67 03/30/25 09:22 BP 138/83 03/30/25 09:22 Pulse Ox 96 03/30/25 09:22 Oxygen Delivery Method Room Air 03/30/25 09:22 BMI result Body Mass Index 35.3 Const General: cooperative, no acute distress, well developed and well groomed Nutritional Appearance: well nourished and obese Orientation/consciousness: oriented to person, oriented to place and oriented to time Limitations: No language barrier HEENT Head: Yes normocephalic and Yes atraumatic Eyes General: appearance normal, both eyes and all related structures Pupils: Equal, round and reactive pupils present Neck Neck: Yes normal visual inspection and Yes no lymphadenopathy Thyroid: Thyroid normal Resp Effort & Inspection: normal respiratory effort and able to speak in complete sentences Auscultation: clear to auscultation bilaterally Cardio Rate: regular rate Rhythm: regular rhythm Heart sounds: Normal, physiologic split S2 sound present Peripheral pulses: radial pulses present and posterior tibial pulses present GI Inspection: No distended, No Abdominal panniculus present and Yes obesity Palpation (GI): Soft to palpation, nontender, no guarding, not rigid and No hepatosplenomegaly present Percussion: Yes normal to percussion Auscultation: normal bowel sounds Rectal Exam - Male: Yes deferred Skin General skin exam: no rashes or lesions noted, turgor normal, skin not dry, no jaundice, No spider nevi and no striae Rashes: no rashes Nails: normal Neuro General: oriented to person, oriented to place and oriented to time Cranial nerves: Yes Equal, round and reactive pupils present and Yes Normal hearing present Speech: No Abnormal speech present Extrem General: Yes normal to inspection, No clubbing, No cyanosis and Yes edema (greater rt than left) Psych Appearance: grossly normal and well kempt Mental Status: mental status grossly normal Speech and movement: Normal speech and movement present Affect: normal affect Attitude: cooperative Thought process: Normal thought process present and not confabulating Thought content: Normal thought content present Insight: Good insight present (Psych) Judgement: Good judgement present (Psych) Assessment & Plan Assessment & Plan (1) Pre-op examination: Code(s): Z01.818 - Encounter for other preprocedural examination Category: Medical (2) Chronic heartburn: Code(s): R12 - Heartburn Category: Medical (3) Obstructive sleep apnea (adult) (pediatric): Comment: Total AHI was 30.hr, supine AHI was 60/hr and oxygen ciaran was 76%. Code(s): G47.33 - Obstructive sleep apnea (adult) (pediatric) Category: Medical Plan This is his first colonoscopy. He has had intermittent GERD for a couple of years. He has taken TUMS at bedtime, with mixed effectiveness. HB is is 3-4 times a day and various times not just NOC. He can't ID trigger foods - even gets it with water fasts. No dysphagia, no dyspepsia, no known FHX of similar sx, no stomach or esophageal cancer.. He has not been as active with his joint problems and has tried to lose weight w/o success r/t life and business. He only moves his bowels about 1-2 times a week with soft stools, unsure if he has incomplete evacuation. He has had episodes of [facility] bleeding and [facility]. He has PRITESH but denies any other resp or cardiac problems. No anes or sed problems. No ID problems. There is no known FHX of CRC or polyps. Orders: Orders H Pylori Breath Test Today R12 - Heartburn, Z01.818 - Encounter for other preprocedural examination EGD/[place] Combo - GI Use Only Today R12 - Heartburn, Z01.818 - Encounter for other preprocedural examination [place] barium swallow Today R12 - Heartburn, Z81 - Encounter for other preprocedural examination Comprehensive Met. Panel Today R12 - Heartburn, Z01.818 - Encounter for other preprocedural examination Medications: New bisacodyl (Dulcolax (bisacodyl)) 10 mg (2 x 5 mg) PO BEDTIME 4 tabs 0RF 2 days famotidine (Pepcid) 40 mg PO BEDTIME 30 tabs 12RF R12 - Heartburn peg 3350-electrolytes 236-22.74-6.74 -5.86 gram (Golytely) until fecal effluent is clear; do not exceed a total volume of 2,000 mL 240 mL PO Q10M 4,000 mL 0RF 1 day Z12.11 - Encounter for screening for malignant neoplasm of colon Coding Level of Care Code New Pt Level 3 (99117) Diagnoses Pre-op examination Z.81 Chronic heartburn R12 Obstructive sleep apnea (adult) (pediatric) G47.33
--- OUTSIDE RECORDS SUMMARY | 2025-03-30 10:03 | XMS_ITS | Encounter Summary ---
Author Name [facility] [place] [facility] [place] Address [address] [place] [address] Care Team Providers Care Rn Concurrent Review Name Role Phone JENNIFER KARIMI Primary Care Provide r Unavailable Insurance Providers: All historical and current Section Date Range: From patient's date of to the date document was created. This section includes the names of all active insurance providers for the patient. Insurance Provider Type of Coverage Plan Name Start of Policy Coverage End of Policy Coverage Group Number Member ID Insurance Provider's Telephone Number Policy Botello's Name Patient's Relationship to Policy Botello [place] ([place]ARD) PREFERRED PROVIDER ORGANIZAT ION (PPO) ACTIV E LOCAL 1458Nov 24, 2020 [id number] [phone] RYDER,MARI EL PATIENT [place]) PREFERRED PROVIDER ORGANIZAT ION (PPO) ACTIV E LOCAL 1458Nov 24, 2020 [id number] RYDER,MARI EL PATIENT [place] ([place]) PREFERRED PROVIDER ORGANIZAT ION (PPO) LOCAL 1458Nov 24, 2020 [id number] [phone] RYDER,MARI EL PATIENT OPTUM RX PRESCRIPT ION NEUFC W Nov 24, 2020 NEUFCW [facility] [id number] [phone] RYDER,MARI EL PATIENT OPTUM RX PRESCRIPT ION NEUFC W Nov 24, 2020 [facility] [id number] [phone] MARI RYDER PATIENT OPTUM RX PRESCRIPT ION UFCW NE HEALT H FUND Nov 24, 2020 [facility] [id number] MARI RYDER PATIENT Selected Encounter This section includes the information on record at [place] for the Encounter. Date/Time Encounter Type Encounter Description Reason Provider Source Jun 10, 2024 09:00 AM OFFICE O/P EST LOW 20 MIN PRIMARY CARE/MEDICINE ICD-10-CM Z00.8 Encounter for other general examination JENNIFER VALLECILLO Kory Encounter Template Text not used by [place] Assessments - Encounter Diagnoses This section includes the primary and secondary diagnoses documented for the Encounter. Date/Time Primary/Secondary Diagnosis Diagnosis Name Provider Source Jul 13, 2024 12:25 PM PRIMARY Encounter for other general examination JENNIFER SANTANA [facility] Jul 13, 2024 12:25 PM SECONDARY Obesity, unspecified JENNIFER SANTANA [facility] Jul 13, 2024 12:25 PM SECONDARY Obstructive sleep apnea (adult) (pediatric) JENNIFER SANTANA [facility] Jul 13, 2024 12:25 PM SECONDARY Other low back pain JENNIFER SANTANA [facility] Jul 13, 2024 12:25 PM SECONDARY Pain in left knee JENNIFER SANTANA [facility] Jul 13, 2024 12:25 PM SECONDARY Pain in right knee JENNIFER SANTANA [facility] Plan of Treatment: Future Appointments (+ 6 months) and Future Tests (+/- 45 days) The Plan of Treatment section includes future care activities for the patient from all [place] treatmentfacilities. This section includes future appointments and future orders which are active, pending or scheduled. Future Appointments This section includes appointments that were scheduled to occur 6 months from the date of the Encounter, up to a maximum of 20 appointments. The data comes from all [place] treatment facilities. Appointment Date/Time Appointment Type Appointme nt Facility Name Jul 06, 2024 08:00 AM AMBULATORY - [facility] Jul 15, 2024 08:00 AM AMBULATORY - [facility] Jul 29, 2024 08:00 AM AMBULATORY - [facility] Aug 12, 2024 08:00 AM AMBULATORY - [facility] Aug 26, 2024 08:00 AM AMBULATORY - [facility] Aug 26, 2024 11:30 AM [facility] Aug 30, 2024 08:00 AM AMBULATORY - REHAB [facility] Sep 09, 2024 08:30 AM AMBULATORY - [facility] Sep 13, 2024 08:00 AM AMBULATORY - [facility] Nov 11, 2024 12:00 PM AM[facility]ULATORY - MEDICINE [facility] Active, Pending, and Scheduled Orders This section includes a listing of several types of active, pending, and scheduled orders, including clinic medications orders, diagnostic test orders, procedure orders and consult orders; where the start date of the order is 45 days before the date of the Encounter or 45 days after the date of theEncounter. The data comes from all [place] treatment facilities. Test Date/Time Test Type Test Details Facility Name Jun 10, 2024 12:00 AM Laboratory - Chemi strYoopies Order OCCULT BLOOD FIT X1 SCREEN(IN-HOUSE) STOOL FECES SP [facility] Lab Results: +/- 30 days of the encounter This section includes the Chemistry and Hematology Lab Results on record with [place] for the patient. Radiology Reports and Pathology Reports are provided separately, in subsequent sections. Lab Results This section contains the Chemistry/Hematology Results that were resulted 30 days before or 30 daysafter the date of the Encounter. Date/Time Source Result Type Result - Unit Interpretation Reference Range Specimen Type Comment Jun 10, 2024 09:52 AM [facility] THYROID T4 FREE(FT4) (WROX) SERUM Spe cimen Type: SERUM No comment entered. Ordering Provider: JENNIFER BOLDEN Report Released Date/Time: Jun 10, 2024 09:46 AM Reporting Lab: [facility] [address] [address] Performing Lab: [facility] [address] [address] THYROID T4 FREE(FT4) (WROX) 1.04 ng/dL 0 .6-1.6 Jun 10, 2024 09:52 AM [facility] BASIC METABOLIC PANEL (fasting) SERUM Specimen Type: SERUM No comment entered. Ordering Provider: JENNIFER KARIMI Report Released Date/Time: Jun 10, 2024 09:46 AM Reporting Lab: [address] [address] Performing Lab: [address] [phone] UREA NITROGEN 14 mg/dL 7-25 GLUCOSE 97 mg/dL 65-100 SODIUM 138 mmol/L 135-145 POTASSIUM 4.3 mmol/L 3.5-5.0 CHLORIDE 106 mmol/L 100-110 CO2 26 meq/L 20-30 CREATININE, Serum 1.02 mg/dL 0.50-1.40 eGFR(CKD-EPI 2020) >90 mL/min >60 Jun 10, 2024 09:52 AM [facility] LIPID PANEL FASTING SERUM Specimen Ty pe: SERUM No comment entered. Ordering Provider: JENNIFER KARIMI Report Released Date/Time: Jun 10, 2024 09:46 AM Reporting Lab: [address] [address] Performing Lab: [address] [address] CHOLESTEROL 203 mg/dL H TRIGLYCERIDE 90 mg/dL 0-150 LDL calculated 138 mg/dL H 0-129 CHOL/HDL 4.3 HDL CHOLESTEROL 47 mg/dL 40-60 Jun 10, 2024 09:52 AM [facility] LIVER FUNCTION SERUM Specimen Type: S YONATHAN No comment entered. Ordering Provider: JENNIFER KARIMI Report Released Date/Time: Jun 10, 2024 09:46 AM Reporting Lab: [address] [address] Performing Lab: [address] [address] PROTEIN,TOTAL 7.0 g/dL 6.0-8.3 ALBUMIN 3.8 g/dL 3.5-5.0 ALKALINE PHOSPHATASE 78 U/L 40-150 AST 22 U/L 5-34 ALT 28 U/L BILIRUBIN, TOTAL 0.5 mg/dL 0.2-1.2 Jun 10, 2024 09:52 AM [facility] CBC AND DIFF (AUTO) BLOOD Specimen Ty pe: BLOOD No comment entered. Ordering Provider: JENNIFER KARIMI Report Released Date/Time: Jun 10, 2024 09:46 AM Reporting Lab: [facility] [address] [address] Performing Lab: [facility] [address] [address] WBC 3.69 10*3/uL L 4.50-11.00 RBC 4.79 10*6/uL 4.23-5.66 HGB 14.9 g/dL 12.8-17 HCT 42.2 39.2-50.4 MCV 88.1 fL 82-99 MCHC 35.3 g/dL H 30.8-35.1 PLT 259 10*3/uL 140-360 RDW-CV 11.9 L 12.0-16.0 MONO, ABS 0.29 10*3/uL L 0.30-1.10 MCH 31.1 pg 26.2-32.6 NEUT % 42.5 L 43.7-75.8 LYMPH % 46.6 H 14.0-42.3 MONO % 7.9 5.1-13.7 EOS % 1.9 0.4-6.8 BASO % 0.8 0.1-2.0 NEUT, ABS 1.57 10*3/uL L 2.20-7.60 LYMPH, ABS 1.72 10*3/uL 1.00-3.20 EOS, ABS 0.07 10*3/uL 0.03-0.44 BASO, ABS 0.03 10*3/uL 0.01-0.13 IMMATURE GRAN % 0.3 0.0-0.7 IMMATURE GRAN, ABS 0.01 10*3/uL 0.00-0.0 6 NRBC % 0.0 0.0-0.0 NRBC, ABS 0.00 10*3/uL 0.00-0.00 Jun 10, 2024 09:52 AM [facility] HEMOGLOBIN A1C PANEL BLOOD Specimen T ype: BLOOD Comment: Values obtained from A1C measurements can vary. For atypical A1C assays, a reported value of 7.0 could actually be between 6.72 and 7.28 if measured by a reference method. A reported value of 9.0 could actually be between 8.73 and 9.27. Ref: http://www.ngsp.org/CAPdata.asp Ordering Provider: JENNIFER KARIMI Report Released Date/Time: Jun 10, 2024 09:46 AM Reporting Lab: [address] [address] Performing Lab: [address] [address] HEMOGLOBIN A1C 5.4 4.0-5.6 Jun 10, 2024 09:52 AM [facility] TSH SERUM Sp ecimen Type: SERUM No comment entered. Ordering Provider: JENNIFER KARIMI Report Released Date/Time: Jun 10, 2024 09:46 AM Reporting Lab: [address] [address] Performing Lab: [address] [address] TSH 2.22 u[IU]/mL 0.35-5.00 Jun 10, 2024 09:52 AM [facility] VITAMIN D (25-OH) SERUM Specimen Type : SERUM No comment entered. Ordering Provider: JENNIFER KARIMI Report Released Date/Time: Jun 10, 2024 09:46 AM Reporting Lab: [address] [phone] Performing Lab: [address] [address] VITAMIN D (25-OH) 22 ng/mL 20-50 Vital Signs: All taken on the encounter date This section contains inpatient and outpatient Vital Signs collected on the date of the Encounter. Date/Time Temperature Pulse Blood Pressure Respiratory Rate SP02 Pain Height Weight Body Mass Index Source Jun 10, 2024 09:07 AM 98.4 70 118/81 97 276.2 36 [place] Encounter Notes: All associated encounter notes This section contains the clinical notes associated to the Encounter. Date/Time Encounter Note(s) Provider Source Dec 05, 2024 12:47 PM ADDENDUM: LOCAL TITLE: Addendum STANDARD TITLE: ADDENDUM DATE OF NOTE: DEC 05, 2024@12:47:52 ENTRY DATE: DEC 05, 2024@12:47:53 AUTHOR: Jordon KARIMI COSIGNER: URGENCY: STATUS: COMPLETED #home sleep study 11/2024 - Severe obstructive sleep apnea (PRITESH) based on an MASHA-3% of 36/hr, with supine-predominance. The supine MASHA-3% was 75/hr and the non-supine AMSHA-3% was 18/hr. - The oxygen saturation ciaran was 74% and mean was 92%. The time spent below 90% was 59 minutes or 12% of the validated monitoring time. ---- Please notify patient sleep study showed severe obstructive sleep apnea. I recommend referral to respiratory to start CPAP, if patient unwilling to retry CPAP please place referral to sleep medicine if patient is in agreement. Patient can be seen at the [facility] ([facility]) or the [place] [facility] ([facility]) sleep clinic at [facility]. /maria r/ JENNIFER KARIMI MD PHYSICIAN Signed: 12/05/2024 12:50 Receipt Acknowledged By: 12/09/2024 12:39 /maria r/ DEMI ALSTON RN REGISTERED NURSE --- Original Document --- 06/10/24 NOTE: Pt is 48 y/o M with obesity, PRITESH untreated, LBP, chronic knee pain, tinnitus, last /initial visit 06/2023 PCP [facility] Dr. Umm Gonzalez MD Family Medicine - annually and prn [facility] ([place]) Other providers: none [place] Percent: 40% Rated Disabilities: 2ND DEGREE MCCONNELL (0%-SC) 2ND DEGREE MCCONNELL (0%-SC) LIMITED MOTION OF ARM (20%-SC) LUMBOSACRAL OR CERVICAL STRAIN (10%-SC) LIMITED FLEXION OF KNEE (10%-SC) TINNITUS (10%-SC) IMPAIRED HEARING (0%-SC) 2ND DEGREE MCCONNELL (0%-SC) #LBP no recent injury pain chronic since service pain non radiating lower middle back no bladder, bowel sx, no Le weakness, numbness walking w/o assistance does not take any medications has to change poition frequent sitting and stading for prolonged time makes it worse XR LS 2021 unremarkable #Bilateral knee pain since service History of right meniscal surgery in 2014 no recent injury No redness No swelling Worse with activity and improved with rest pain worse at the end of ROM worse with kneeling down X-rays April 2022 unremarkable never tried PT #PRITESH pt agreed to repeat sleep study, 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 - had to return CPAP because he did not use it enough reprots, fatigue, day time sleepiness, snoring PAST MEDICAL HISTORY: --obesity --PRITESH untreated --LBP --knee pain b/l --DERMATOPHYTOSIS SITE --tinnitus --eczema PAST SURGICAL HISTORY: -- 11/2023 S/p left wrist ganglion cyst removal -- L shoulder surgery -- R knee surgery (meniscal tear)2014 ALLERGIES: NKDA MEDICATIONS:none FAMILY HISTORY: --DM: father --Cancer: no --AZ:no --CVA:no SOCIAL HISTORY: 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 06/2020 [employer] 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 --Occupation: works at a [employer] in [place], 60h/week --Cohabitation: , lives with his --Children: 4 children (25/16/5/3) and grandaughter 2 y/o --Diet: regular, diet soda --Exercise: sedentary --Caffeine: 6c/d --EtOH: 3-4 drinks on friday/friday --Tob: quit 2002, h/o 1xPPDY --MJ:denies --Illicits:denies --Sexual activity: monogamous, female --Eye: UTD q2y --Dental: overdue --Hospitalizations: ROS: Constitutional: no fever/no chills, no ns Eyes: no decreased vision/blurry vision Ears/Nose/Throat: no hearing change Respiratory: no cough/wheezing/SOB Cardiovascular: no CP /palpitations Gastrointestinal: no abdominal pain/bloody/black stools :no dysuria/hematuria/trouble voiding MSK: LBP, knee pain b/l Neuro: no dizziness/H/A Skin: no pruritus/rash PHYSICAL EXAM: Vital Signs: Blood Pressure: 118/81 (06/10/2024 09:07) 124/78 (04/27/2024 15:40) 135/87 (06/24/2023 11:25) Pulse: 70 (06/10/2024 09:07) Respiration: 18 Temperature: 98.4 F [36.9 C] (06/10/2024 09:07) Patient Weight: BMI 35 276.2 lb [125.28 kg] (06/10/2024 09:07) 272 lb [123.38 kg] (06/24/2023 11:25) Gen: pleasant, engaged, NAD neck Supple, no LAD TM visualized bilaterally L upper eye lid dry skin with scaly plaques Chest/CV: RRR Lungs: CTA B/L Abdomen: BS+, Soft, NT/ND Extremities: wwp, no edema LS: no spinal TTP, paraspinal TTP + knee: No edema, no rubor, no calor, full range of motion, tenderness to palpation over medial joint line L more than R Ambulates without assistance. Normal gait LABORATORY: --06/2023--- WBC: 4.28 L HGB: 15.7 HCT: 46.2 MCV: 90.1 PLT: 281 HGB A1C (WR): 5.5 GLUCOSE: 88 UREA NITROGEN: 24 CREATININE-EGFR: 1.22 eGFR CKD-EPI 2020: 74 SODIUM: 138 POTASSIUM: 4.3 CHLORIDE: 102 CO2: 27 PROTEIN,TOTAL: 7.6 ALBUMIN: 4.3 ALKALINE PHOSPHATASE: 68 BILIRUBIN,TOT.: 0.6 SGOT: 22 SGPT: 28 CHOLESTEROL: 226 H TRIGLYCERIDE: 146 LDL CHOL: 149 H CHOL/HDL RATIO: 4.7 HDL: 48 TSH (Access): 2.96 HEPATITIS C AB: NON-REACTIVE ASSESSMENT/PLAN: Pt is 48 y/o M with obesity, PRITESH untreated, LBP, chronic knee pain, tinnitus, #obesity: BMI 35 -diet/exercise reviewed at length, heart healthy Mediterranean diet recommended -declined MOVE,nutrition referral at this time #knee pain b/l, XR 04/2022 - unremarkale -topical analgesics -weight loss -referral to PT #PRITESH -will obtain sleep study #LBP w/o radiculopathy LS XR 2021 unremarkale -lidocaine patches -referral to PT #Tinnitus-will schedule with audiology number provided Healthcare maintenance: --Lipids: LDL 149 (06/2024) --Diabetes: A1c 5.5 (06/2024) --Colon CA (45-75): colonoscopy dc/d failed scheduling FIT test- card provided --Lung CA: --PSA --AAA (smoker/65): --Influenza (yrly): --COVID: Declined --PCV20: --PCV23: --RZV (>50yrs, x2): --TDAP: 2011 --Hep C screen: 2022 negative --HIV screen: --DEXA: --Advanced Directives: Address at next visit: Return to clinic to see me in _12__ months, sooner PRN. Virtual ( ), F2F (x ) ( )non fasting labs ordered prior to f/u ( x)fasting labs ordered prior to f/u ( )no labs needed ( )request labs from outside provider ( )request records from outside providers non [facility] PCP Suicide Screen: C-SSRS Screening [place]-Suicide Severity Rating Scale (C-SSRS Screener) 1. Over the past month, have you wished you were or wished you could go to sleep and not wake up? No 2. Over the past month, have you had any actual thoughts of killing yourself? No 3. Over the past month, have you been thinking about how you might do this? Response not required due to responses to other questions. 4. Over the past month, have you had these thoughts and had some intention of acting on them? Response not required due to responses to other questions. 5. Over the past month, have you started to work out or worked out the details of how to kill yourself? Response not required due to responses to other questions. 6. If yes, at any time in the past month did you intend to carry out this plan? Response not required due to responses to other questions. 7. In your lifetime, have you ever done anything, started to do anything, or prepared to do anything to end your life (for example, collected pills, obtained a gun, gave away valuables, went to the roof but didn't jump)? No 8. If YES, was this within the past 3 months? Response not required due to responses to other questions. Medication Reconciliation: Patient reports taking no medications. Meds were not administered, prescribed, modified, nor influenced the care given at this encounter. Td / Tdap Immunization: See orders /es/ JENNIFER KARIMI MD PHYSICIAN Signed: 06/10/2024 09:48 07/08/2024 ADDENDUM STATUS: COMPLETED --05/2024-- HGB A1C (WR): 5.4 GLUCOSE: 97 WBC: 3.69 L HGB: 14.9 HCT: 42.2 MCV: 88.1 PLT: 259 TSH (Access): 2.22 FREE T-4 (WR): 1.04 VITAMIN D TOTAL: 22 UREA NITROGEN: 14 CREATININE-EGFR: 1.02 eGFR CKD-EPI 2020: >90 SODIUM: 138 POTASSIUM: 4.3 CHLORIDE: 106 CO2: 26 PROTEIN,TOTAL: 7.0 ALBUMIN: 3.8 ALKALINE PHOSPHATASE: 78 BILIRUBIN,TOT.: 0.5 SGOT: 22 SGPT: 28 CHOLESTEROL: 203 H TRIGLYCERIDE: 90 LDL CHOL: 138 H CHOL/HDL RATIO: 4.3 HDL: 47 /es/ JENNIFER KARIMI MD PHYSICIAN Signed: 07/08/2024 16:33 12/08/2024 ADDENDUM STATUS: COMPLETED Called without success. Left detailed message on voicemail identified in outgoing message by 's name advising as requested by PCP. Return call number to PACT was provided. A letter is also being mailed advising and asking to let PACT know what he decides. /everton ALSTON RN REGISTERED NURSE Signed: 12/08/2024 15:25 12/09/2024 ADDENDUM STATUS: COMPLETED Spoke with . Advised as recommended by PCP. declines CPAP. He agreed to try the sleep medicine. [facility] sleep disorder Consult placed and held for PCP signature. /everton ALSTON RN REGISTERED NURSE Signed: 12/09/2024 12:38 AMY KARIMI [facility] Jun 10, 2024 09:00 AM PHYSICIAN NOTE: LOCAL TITLE: NOTE STANDARD TITLE: PHYSICIAN NOTE DATE OF NOTE: JUN 10, 2024@09:00 ENTRY DATE: JUN 10, 2024@05:38:53 AUTHOR: Jordon KARIMI COSIGNER: URGENCY: STATUS: COMPLETED NOTE Has ADDENDA Pt is 48 y/o M with obesity, PRITESH untreated, LBP, chronic knee pain, tinnitus, last /initial visit 06/2023 [facility]CP [facility] Umm Gonzalez MD Family Medicine - annually and mslee ann [facility] ([place]) Other providers: none [place] Percent: 40% Rated Disabilities: 2ND DEGREE MCCONNELL (0%-SC) 2ND DEGREE MCCONNELL (0%-SC) LIMITED MOTION OF ARM (20%-SC) LUMBOSACRAL OR CERVICAL STRAIN (10%-SC) LIMITED FLEXION OF KNEE (10%-SC) TINNITUS (10%-SC) IMPAIRED HEARING (0%-SC) 2ND DEGREE MCCONNELL (0%-SC) #LBP no recent injury pain chronic since service pain non radiating lower middle back no bladder, bowel sx, no Le weakness, numbness walking w/o assistance does not take any medications has to change poition frequent sitting and stading for prolonged time makes it worse XR LS 2021 unremarkable #Bilateral knee pain since service History of right meniscal surgery in 2014 no recent injury No redness No swelling Worse with activity and improved with rest pain worse at the end of ROM worse with kneeling down X-rays April 2022 unremarkable never tried PT #PRITESH pt agreed to repeat sleep study, 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 - had to return CPAP because he did not use it enough reprots, fatigue, day time sleepiness, snoring PAST MEDICAL HISTORY: --obesity --PRITESH untreated --LBP --knee pain b/l --DERMATOPHYTOSIS SITE --tinnitus --eczema PAST SURGICAL HISTORY: -- 11/2023 S/p left wrist ganglion cyst removal -- L shoulder surgery -- R knee surgery (meniscal tear)2014 ALLERGIES: NKDA MEDICATIONS:none FAMILY HISTORY: --DM: father --Cancer: no --AZ:no --CVA:no SOCIAL HISTORY: 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 06/2020 [employer] 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 --Occupation: works at a [employer] in [place], 60h/week --Cohabitation: , lives with his --Children: 4 children (25/16/5/3) and grandaughter 2 y/o --Diet: regular, diet soda --Exercise: sedentary --Caffeine: 6c/d --EtOH: 3-4 drinks on friday/friday --Tob: quit 2002, h/o 1xPPDY --MJ:denies --Illicits:denies --Sexual activity: monogamous, female --Eye: UTD q2y --Dental: overdue --Hospitalizations: ROS: Constitutional: no fever/no chills, no ns Eyes: no decreased vision/blurry vision Ears/Nose/Throat: no hearing change Respiratory: no cough/wheezing/SOB Cardiovascular: no CP /palpitations Gastrointestinal: no abdominal pain/bloody/black stools :no dysuria/hematuria/trouble voiding MSK: LBP, knee pain b/l Neuro: no dizziness/H/A Skin: no pruritus/rash PHYSICAL EXAM: Vital Signs: Blood Pressure: 118/81 (06/10/2024 09:07) 124/78 (04/27/2024 15:40) 135/87 (06/24/2023 11:25) Pulse: 70 (06/10/2024 09:07) Respiration: 18 Temperature: 98.4 F [36.9 C] (06/10/2024 09:07) Patient Weight: BMI 35 276.2 lb [125.28 kg] (06/10/2024 09:07) 272 lb [123.38 kg] (06/24/2023 11:25) Gen: pleasant, engaged, NAD neck Supple, no LAD TM visualized bilaterally L upper eye lid dry skin with scaly plaques Chest/CV: RRR Lungs: CTA B/L Abdomen: BS+, Soft, NT/ND Extremities: wwp, no edema LS: no spinal TTP, paraspinal TTP + knee: No edema, no rubor, no calor, full range of motion, tenderness to palpation over medial joint line L more than R Ambulates without assistance. Normal gait LABORATORY: --06/2023--- WBC: 4.28 L HGB: 15.7 HCT: 46.2 MCV: 90.1 PLT: 281 HGB A1C (WR): 5.5 GLUCOSE: 88 UREA NITROGEN: 24 CREATININE-EGFR: 1.22 eGFR CKD-EPI 2020: 74 SODIUM: 138 POTASSIUM: 4.3 CHLORIDE: 102 CO2: 27 PROTEIN,TOTAL: 7.6 ALBUMIN: 4.3 ALKALINE PHOSPHATASE: 68 BILIRUBIN,TOT.: 0.6 SGOT: 22 SGPT: 28 CHOLESTEROL: 226 H TRIGLYCERIDE: 146 LDL CHOL: 149 H CHOL/HDL RATIO: 4.7 HDL: 48 TSH (Access): 2.96 HEPATITIS C AB: NON-REACTIVE ASSESSMENT/PLAN: Pt is 48 y/o M with obesity, PRITESH untreated, LBP, chronic knee pain, tinnitus, #obesity: BMI 35 -diet/exercise reviewed at length, heart healthy Mediterranean diet recommended -declined MOVE,nutrition referral at this time #knee pain b/l, XR 04/2022 - unremarkale -topical analgesics -weight loss -referral to PT #PRITESH -will obtain sleep study #LBP w/o radiculopathy LS XR 2021 unremarkale -lidocaine patches -referral to PT #Tinnitus-will schedule with audiology number provided Healthcare maintenance: --Lipids: LDL 149 (06/2024) --Diabetes: A1c 5.5 (06/2024) --Colon CA (45-75): colonoscopy dc/d failed scheduling FIT test- card provided --Lung CA: --PSA --AAA (smoker/65): --Influenza (yrly): --COVID: Declined --PCV20: --PCV23: --RZV (>50yrs, x2): --TDAP: 2011 --Hep C screen: 2022 negative --HIV screen: --DEXA: --Advanced Directives: Address at next visit: Return to clinic to see me in _12__ months, sooner PRN. Virtual ( ), F2F (x ) ( )non fasting labs ordered prior to f/u ( x)fasting labs ordered prior to f/u ( )no labs needed ( )request labs from outside provider ( )request records from outside providers non [facility] PCP Suicide Screen: C-SSRS Screening [place]-Suicide Severity Rating Scale (C-SSRS Screener) 1. Over the past month, have you wished you were or wished you could go to sleep and not wake up? No 2. Over the past month, have you had any actual thoughts of killing yourself? No 3. Over the past month, have you been thinking about how you might do this? Response not required due to responses to other questions. 4. Over the past month, have you had these thoughts and had some intention of acting on them? Response not required due to responses to other questions. 5. Over the past month, have you started to work out or worked out the details of how to kill yourself? Response not required due to responses to other questions. 6. If yes, at any time in the past month did you intend to carry out this plan? Response not required due to responses to other questions. 7. In your lifetime, have you ever done anything, started to do anything, or prepared to do anything to end your life (for example, collected pills, obtained a gun, gave away valuables, went to the roof but didn't jump)? No 8. If YES, was this within the past 3 months? Response not required due to responses to other questions. Medication Reconciliation: Patient reports taking no medications. Meds were not administered, prescribed, modified, nor influenced the care given at this encounter. Td / Tdap Immunization: See orders /maria r/ JENNIFER KARIMI MD PHYSICIAN Signed: 06/10/2024 09:48 07/08/2024 ADDENDUM STATUS: COMPLETED --05/2024-- HGB A1C (WR): 5.4 GLUCOSE: 97 WBC: 3.69 L HGB: 14.9 HCT: 42.2 MCV: 88.1 PLT: 259 TSH (Access): 2.22 FREE T-4 (WR): 1.04 VITAMIN D TOTAL: 22 UREA NITROGEN: 14 CREATININE-EGFR: 1.02 eGFR CKD-EPI 2020: >90 SODIUM: 138 POTASSIUM: 4.3 CHLORIDE: 106 CO2: 26 PROTEIN,TOTAL: 7.0 ALBUMIN: 3.8 ALKALINE PHOSPHATASE: 78 BILIRUBIN,TOT.: 0.5 SGOT: 22 SGPT: 28 CHOLESTEROL: 203 H TRIGLYCERIDE: 90 LDL CHOL: 138 H CHOL/HDL RATIO: 4.3 HDL: 47 /maria r/ JENNIFER KARIMI MD PHYSICIAN Signed: 07/08/2024 16:33 12/05/2024 ADDENDUM STATUS: COMPLETED #home sleep study 11/2024 - Severe obstructive sleep apnea (PRITESH) based on an MASHA-3% of 36/hr, with supine-predominance. The supine MASHA-3% was 75/hr and the non-supine MASHA-3% was 18/hr. - The oxygen saturation ciaran was 74% and mean was 92%. The time spent below 90% was 59 minutes or 12% of the validated monitoring time. ---- Please notify patient sleep study showed severe obstructive sleep apnea. I recommend referral to respiratory to start CPAP, if patient unwilling to retry CPAP please place referral to sleep medicine if patient is in agreement. Patient can be seen at the [facility] or the [facility] at [facility]. /maria r/ JENNIFER KARIMI,MD PHYSICIAN Signed: 12/05/2024 12:50 Receipt Acknowledged By: 12/09/2024 12:39 /maria r/ DEMI ALSTON RN REGISTERED NURSE 12/08/2024 ADDENDUM STATUS: COMPLETED Called without success. Left detailed message on voicemail identified in outgoing message by 's name advising as requested by PCP. Return call number to PACT was provided. A letter is also being mailed advising and asking to let PACT know what he decides. /maria r/ DEMI ALSTON RN REGISTERED NURSE Signed: 12/08/2024 15:25 12/09/2024 ADDENDUM STATUS: COMPLETED Spoke with . Advised as recommended by PCP. [place] declines CPAP. He agreed to try the sleep medicine. [facility] sleep disorder Consult placed and held for PCP signature. /everton ALSTON RN REGISTERED NURSE Signed: 12/09/2024 12:38 02/03/2025 ADDENDUM STATUS: COMPLETED #01/2025 sleep consult [facility] 1) Severe supone-predominant PRITESH with significant oxygen desaturation, with symptoms of daytime sleepiness/tiredness. He was previously diagnosed in the community and tried CPAP but failed to tolerate for various reasons (difficulty maintaining a seal with tossing and turning, didn't like having to meet compliance criteria, and general dislike for managing all the parts and pieces). Given the severity of his sleep apnea and his symptoms, treatment is recommended. He is unwilling to retry PAP currently and does not want to complete a PAP titration study either. He is willing to try an oral appliance, advised to practice positional therapy and weight loss. Inspire is another option we briefly discussed which should be reserved as the last resort as it is invasive. Plan: - referral to [facility] for oral appliance - the Zzoma belt - discuss weight reduction strategies with PCP (as a rule of thumb, 20% weight reduction can result in a 50-60% reduction in the AHI) /maria r/ JENNIFER KARIMI MD PHYSICIAN Signed: 02/03/2025 11:16 AMY KARIMI
--- OUTSIDE RECORDS SUMMARY | 2025-03-30 10:03 | XMS_ITS | Continuity of Care Document ---
Author Name [facility] Organization [facility] Care Team Providers Care Skelp Processor Name Role Phone [facility] Unavailable Unavailable Problems Combined list of problems from Department of Defense and Veterans Affairs facilities. It does not include entries that were removed or entered in error. Problem Status Onset Date Problem Type Date of Resolution Comments Source Chronic back pain Active Condition [place] Contact eczema eyelid Active Condition [place] Dermatophytosis * (ICD-9-CM 110.9) Active Condition [place] Ganglion cyst of wrist Active Condition Jun 24, 2023 Entered By: JENNIFER VALLECILLO Comment: left [place] Obesity (SCT [id number]) Active Condition [place] Obstructive sleep apnea of adult Active Condition Dec 05, 2024 Entered By: JENNIFER VALLECILLO Comment: SEVERE PRITESH 11/2024 [place] Obstructive sleep apnea of adult Active Condition [facility] Pain of Both Knees (SCT [id number]) Active Condition Jun 24 Entered By: JENNIFER VALLECILLO Comment: chronic, XR knee 04/2022 unremarkable [place] Pain radiating to left shoulder Active Condition [place] Tinnitus Active Condition [place] visit for: administrative purpose Inactive Condition [facility] OVERWEIGHT Active Condition [facility] Patient Education - Dietary Active Condition This document acknowledges attendance in the Body Composition Improvement Program (BCIP). Pt is aware meeting is optional now that Fitness Stds are met.DIET: 2000 calorie wt loss. ASSESSMENT: Reduced energy intake related to better portion and calorie control as evidenced by slight 1 lb wt loss since last meeting in March 30. SUGGESTED: 1) To lose weight; BMI goal 18.5 to <25 2) To eat a balanced diet of 2000 calories/d 3) To comply with exercise program (as per medical profile restrictions) 4) To choose healthy foods 5) To provide written, daily food records with calorie data [facility] Diagnosis: ICD-10-CM H90.3 Sensorineural hearing loss, bilateral Active Diagnosis [facility] [place] [facility] Diagnosis: ICD-10-CM G47.33 Obstructive sleep apnea (adult) (pediatric) Active Diagnosis [facility] Diagnosis: ICD-10-CM R06.83 Snoring Active Diagnosis [place] Diagnosis: ICD-10-CM M25.569 Pain in unspecified knee Active Diagnosis [facility] Diagnosis: ICD-10-CM G47.30 Sleep apnea, unspecified Active Diagnosis [place] Diagnosis: ICD-10-CM Z00.8 Encounter for other general examination Active Diagnosis [place] Medications Combined list of outpatient medications from Department of Defense and Veterans Affairs facilities.Medications provided include 1) outpatient medications from the last 15 months, and 2) patient-reported medications. Medication Details Route Status Patient Instructions Prescription Expires Prescription Number Last Dispense Date Ordering Provider Order Date Order Qty Source DICLOFENAC NA 1% GEL,TOP APPLY 4 GRAMS TOPICALL Y FOUR TIMES A DAY FOR OSTEOART HRITIS - USE DOSING CARD PROVIDED IN BOX TOPICA L ACTIVE 06/11/2025 [id number] JENNIFER THOMSON 2023 100 [place] LIDOCAINE 5% PATCH APPLY 1 PATCH TOPICALL Y ONCE DAILY FOR NERVE PAIN (LEAVE PATCH ON FOR 12 HOURS, THEN REMOVE PATCH) [place] L ACTIVE 06/11/2025 [id number] JENNIFER THOMSON 2023 30 [place] Allergies, Adverse Reactions, Alerts Combined list of allergies from Department of Defense and Veterans Affairs facilities. It does not include entries that were removed or entered in error. Substance Category Reaction Severity Reaction type Status Date Reported Comments Source No Known Allergies Drug allergy (disorder) active 01/02/2008 [place] C [facility] Immunizations Combined list of available immunizations from the Department of Defense and Veterans Affairs facilities. Immunization Series Date Given Administered By Site Reaction Lot Number CVX Code Drug Wage Hand Status Comments Source TDAP 2023 JORGE LUIS SHAIKH RIGHT DELTO ID [id number] 115 complet ed [facility] Influenza, seasonal, injectable, preservative free 2016 BOGDASARIAN, () Not Given Influenza , seasonal, injectabl e, preservat darius free DoD influenza, injectable, quadrivalent, preservative free 2015 JOANNE, () Not Given influenza , injectabl e, quadrival ent, preservat darius free DoD Influenza, seasonal, injectable, preservative free 2013 KAYLAN ESPINOSA () Not Given Influenza , seasonal, injectabl e, preservat darius free DoD Influenza, seasonal, injectable 1 2013 [id number] [employer] (CSL) complet ed Influenza , seasonal, injectabl e DoD Influenza, seasonal, injectable, preservative free 0 2012 140 (MVX) complet ed Influenza , seasonal, injectabl e, preservat darius free DoD Influenza, seasonal, injectable 1 2012 [id number] [employer] (CSL) complet ed Influenza , seasonal, injectabl e DoD TDAP 2011 115 complet ed HISTORICA L INFORMATI ON - FROM OTHER REGISTRY, [facility] tetanus toxoid, reduced diphtheria toxoid, and acellular pertu is vaccine, adsorbed 0 2011 [id number] Sanofi Pasteur (PMC) complet ed tetanus toxoid, reduced diphtheri a toxoid, and acellular pertussis vaccine, adsorbed DoD Influenza, seasonal, injectable 0 2011 141 [facility] [employer] (CSL) complet ed Influenza , seasonal, injectabl e DoD Influenza, seasonal, injectable, preservative free 1 2010 140 [employer] Gisela. (NOV) complet ed Influenza , seasonal, injectabl e, preservat darius free DoD Influenza, seasonal, injectable 0 2010 141 [employer] Gisela. (NOV) complet ed Influenza , seasonal, injectabl e DoD influenza virus vaccine, live, attenuated, for intranasal use 1 2009 [id number] 111 [employer] (MED) complet ed influenza virus vaccine, live, attenuate d, for intranasa l use DoD Novel influenza-H1N 1-09, injectable 1 2009 [id number] 1 127 Nov[employer] Gisela. (NOV) complet ed Novel influenza -R1B0-31, injectabl e DoD influenza virus vaccine, live, attenuated, for intranasal use 1 2008 [id number] 111 [employer] ([facility]) complet ed influenza virus vaccine, live, attenuate d, for intranasa l use DoD typhoid Vi capsular polysaccharid e vaccine 1 2008 [id number] 101 Sanofi Pasteur ([facility]) complet ed typhoid Vi capsular polysacch aride vaccine DoD influenza virus vaccine, split virus (incl. purified surface antigen)-reti red CODE 1 2007 [id number] 15 [place] ([facility]) complet ed influenza virus vaccine, split virus (incl. purified surface antigen)- retired CODE DoD influenza virus vaccine, split virus (incl. purified surface antigen)-reti red CODE 1 2006 [id number] 15 [place] ([facility]) complet ed influenza virus vaccine, split virus (incl. purified surface antigen)- retired CODE DoD typhoid vaccine, parenteral, other than acetone-kille d, dried 1 2006 [id number] 41 [facility] ([facility]) complet ed typhoid vaccine, parentera l, other than acetone-k illed, dried DoD influenza virus vaccine, split virus (incl. purified surface antigen)-reti red CODE 1 2005 [id number] 15 Other (OTH) complet ed influenza virus vaccine, split virus (incl. purified surface antigen)- retired CODE DoD varicella virus vaccine 0 2005 21 () complet ed varicella virus vaccine DoD tetanus and diphtheria toxoids, adsorbed, preservative free, for adult use (2 Lf of tetanus toxoid and 2 Lf of diphtheria toxoid) 1 2005 [id number] Sanofi Pasteur ([facility]) complet ed tetanus and diphtheri a toxoids, adsorbed, preservat darius free, for adult use (2 Lf of tetanus toxoid and 2 Lf of diphtheri a toxoid) DoD influenza virus vaccine, split virus (incl. purified surface antigen)-reti red CODE 1 2004 [id number] 15 [facility]) complet ed influenza virus vaccine, split virus (incl. purified surface antigen)- retired CODE DoD typhoid vaccine, parenteral, other than acetone-kille d, dried 1 2004 [id number] 41 [facility] ([facility]) complet ed typhoid vaccine, parentera l, other than acetone-k illed, dried DoD HEP B, ADULT 3 2002 43 complet ed HISTORICA L INFORMATI ON - FROM OTHER REGISTRY, [facility] influenza virus vaccine, split virus (incl. purified surface antigen)-reti red CODE 1 2002 [id number] 15 Sanofi Pasteur ([facility]) complet ed influenza virus vaccine, split virus (incl. purified surface antigen)- retired CODE [facility] hepatitis B vaccine, adult dosage 3 2002 [id number] 43 [employer] ([facility]) complet ed hepatitis B vaccine, adult dosage DoD anthrax vaccine 3 2002 UNK 24 Unknown (UNK) comple t ed anthrax vaccine DoD HEP B, ADULT 2 2002 43 complet ed HISTORICA L INFORMATI ON - FROM OTHER REGISTRY, [facility] anthrax vaccine 4 2002 UNK 24 Unknown (UNK) comple t ed anthrax vaccine DoD hepatitis B vaccine, adult dosage 2 2002 UNK 43 Unknown (UNK) comple t ed hepatitis B vaccine, adult dosage DoD vaccinia (smallpox) vaccine 0 2002 [id number] 75 Sanofi Pasteur ([facility]) complet ed vaccinia (smallpox ) vaccine DoD anthrax vaccine 3 2002 UNK 24 Unknown (UNK) comple t ed anthrax vaccine DoD HEP A-HEP B 1 2002 104 complet ed HISTORICA L INFORMATI ON - FROM OTHER REGISTRY, [facility] measles, mumps and rubella virus vaccine 0 2002 [id number] Merck (MSD) complet ed measles, mumps and rubella virus vaccine DoD influenza virus vaccine, split virus (incl. purified surface antigen)-reti red CODE 0 2002 [id number] 15 Sanofi Pasteur ([facility]) complet ed influenza virus vaccine, split virus (incl. purified surface antigen)- retired CODE DoD anthrax vaccine 1 2002 [id number] 24 [facility] [employer] [facility] ([facility]) complet ed anthrax vaccine DoD meningococcal polysaccharid e vaccine (MPSV4) 0 2002 [id number] 32 Sanofi Pasteur (PMC) complet ed meningoco ccal polysacch aride vaccine (MPSV4) DoD yellow fever vaccine 0 2002 [id number] 37 Sanofi Pasteur (PMC) complet ed yellow fever vaccine DoD hepatitis B vaccine, adult dosage 1 2002 [id number] 43 [employer] (SKB) complet ed hepatitis B vaccine, adult dosage DoD hepatitis A vaccine, adult dosage 3 2002 [id number] 52 Merck (MSD) complet ed hepatitis A vaccine, adult dosage DoD typhoid Vi capsular polysaccharid e vaccine 0 2002 [id number] 101 Sanofi Pasteur ([facility]MC) complet ed typhoid Vi capsular polysacch aride vaccine DoD anthrax vaccine 1 2002 [id number] [employer] [facility] ([facility]) complet ed anthrax vaccine DoD HEP A, UNSPECIFIED FORMULATION 1999 85 complet ed HISTORICA L INFORMATI ON - FROM OTHER REGISTRY, [facility] hepatitis A vaccine, adult dosage 2 1999 UNK 52 Unknown (UNK) comple t ed hepatitis A vaccine, adult dosage DoD HEP A, UNSPECIFIED FORMULATION 1998 85 complet ed HISTORICA L INFORMATI ON - FROM OTHER REGISTRY, [facility] hepatitis A vaccine, adult dosage 1 1998 UNK 52 Unknown (UNK) comple t ed hepatitis A vaccine, adult dosage DoD measles, mumps and rubella virus vaccine 0 1994 UNK 03 Unknown (UNK) comple t ed measles, mumps and rubella virus vaccine DoD tetanus and diphtheria toxoids, adsorbed, preservative free, for adult use (2 Lf of tetanus toxoid and 2 Lf of diphtheria toxoid) 0 1994 UNK 09 Unknown (UNK) comple t ed tetanus and diphtheri a toxoids, adsorbed, preservat darius free, for adult use (2 Lf of tetanus toxoid and 2 Lf of diphtheri a toxoid) DoD meningococcal polysaccharid e vaccine (MPSV4) 0 1994 UNK 32 Unknown (UNK) comple t ed meningoco ccal polysacch aride vaccine (MPSV4) DoD influenza virus vaccine, unspecified formulation 0 1994 UNK 88 Unknown (UNK) comple t ed influenza virus vaccine, unspecifi ed formulati on DoD poliovirus vaccine, unspecified formulation 0 1994 UNK 89 Unknown (UNK) comple t ed polioviru s vaccine, unspecifi ed formulati on DoD Results Combined list of recent chemistry, hematology and other laboratory results from Department of Defense and Veterans Affairs, ranging from 15 months to all on record, depending upon the facility. Order Name Results Value Reference Range Date Interpretation Specimen Comments Source THYROID T4 FREE(FT4) (WROX) THYROXINE (T4) FREE [MASS/VOLUM E] IN SERUM OR PLASMA 1.04 ng/dL 0.6 - 1.6 06/10 Specimen Type: SERUM No comment entered. Ordering Provider: KO SHEPARD Report Released Date/Time: Jun 10, 2024 09:46 AM Reporting Lab: [facility] [address] [address] Performing Lab: [facility] [address] [address] [place] BASIC METABOLIC PANEL (fasting) UREA NITROGEN [MASS/VOLUM E] IN SERUM OR PLASMA 14 mg/dL 7 - 25 06/10 Specimen Type: SERUM No comment entered. Ordering Provider: KO SHEPARD Report Released Date/Time: Jun 10, 2024 09:46 AM Reporting Lab: [facility] [address] [facility] [address] Performing Lab: [facility] [address] [facility] [address] [place] BASIC METABOLIC PANEL (fasting) GLUCOSE [MASS/VOLUM E] IN SERUM OR PLASMA 97 mg/dL 65 - 100 06/10 Specimen Type: SERUM No comment entered. Ordering Provider: KO SHEPARD Report Released Date/Time: Jun 10, 2024 09:46 AM Reporting Lab: [facility] [address] [facility] [address] Performing Lab: [facility] [address] [facility] [address] [place] BASIC METABOLIC PANEL (fasting) SODIUM [MOLES/VOLU ME] IN SERUM OR PLASMA 138 mmol/L 135 - 145 06/10 Specimen Type: SERUM No comment entered. Ordering Provider: KO SHEPARD Report Released Date/Time: Jun 10, 2024 09:46 AM Reporting Lab: [facility] [place] [facility] [address] [facility] [address] Performing Lab: [facility] [address] [facility] [address] [place] BASIC METABOLIC PANEL (fasting) POTASSIUM [MOLES/VOLU ME] IN SERUM OR PLASMA 4.3 mmol/L 3.5 - 5.0 06/10 Specimen Type: SERUM No comment entered. Ordering Provider: KO SHEPARD Report Released Date/Time: Jun 10, 2024 09:46 AM Reporting Lab: [facility] [address] [facility] [address] Performing Lab: [facility] TRN [facility] [address] [facility] [address] [place] BASIC METABOLIC PANEL (fasting) CHLORIDE [MOLES/VOLU ME] IN SERUM OR PLASMA 106 mmol/L 100 - 110 06/10 Specimen Type: SERUM No comment entered. Ordering Provider: KO SHEPARD Report Released Date/Time: Jun 10, 2024 09:46 AM Reporting Lab: [facility] [address] [facility] [address] Performing Lab: [facility] [address] [facility] [address] [place] BASIC METABOLIC PANEL (fasting) CARBON DIOXIDE, TOTAL [MOLES/VOLU ME] IN SERUM OR PLASMA 26 meq/L 20 - 30 06/10 Specimen Type: SERUM No comment entered. Ordering Provider: KO SHEPARD Report Released Date/Time: Jun 10, 2024 09:46 AM Reporting Lab: [facility] [address] [facility] [address] Performing Lab: [facility] [address] [facility] [address] [place] BASIC METABOLIC PANEL (fasting) CREATININE [MASS/VOLUM E] IN SERUM OR PLASMA 1.02 mg/dL 0.50 - 1.40 06/10 Specimen Type: SERUM No comment entered. Ordering Provider: KO SHEPARD Report Released Date/Time: Jun 10, 2024 09:46 AM Reporting Lab: [facility] [address] [facility] [address] Performing Lab: [facility]PITALRCARRAWAY METHOD[facility]ENTERN [facility]ITALUSETS [facility] [address] [facility] [address] [facility] BASIC METABOLIC PANEL (fasting) GLOMERULAR FILTRATION RATE/1.73 SQ M.PREDICTED [VOLUME RATE/AREA] IN SERUM, PLASMA OR BLOOD BY CREATININE- BASED FORMULA (CKD-EPI 2020) >90mL/ min 60 06/10 Specimen Type: SERUM No comment entered. Ordering Provider: KO SHEPARD Report Released Date/Time: Jun 10, 2024 09:46 AM Reporting Lab: [facility] [address] [address] Performing Lab: [facility]N [facility]ITALUSE[address] [address] [facility] LIPID PANEL FASTING CHOLESTEROL [MASS/VOLUM E] IN SERUM OR PLASMA 203 mg/dL 06/10 H Specimen Type: SERUM No comment entered. Ordering Provider: KO SHEPARD Report Released Date/Time: Jun 10, 2024 09:46 AM Reporting Lab: [facility]ITALRBRYCE HOSPITALTRN [place] [facility] [address] [facility] [address] Performing Lab: [facility]N [facility] [address] [facility] [address] [facility] [place] LIPID PANEL FASTING TRIGLYCERID E [MASS/VOLUM E] IN SERUM OR PLASMA 90 mg/dL 0 - 150 06/10 Specimen Type: SERUM No comment entered. Ordering Provider: KO SHEPARD Report Released Date/Time: Jun 10, 2024 09:46 AM Reporting Lab: [facility]PITALRBRYCE HOSPITALTRN MedicalisUSETS [address] [address] Performing Lab: [facility] [address] [facility] [address] [place] LIPID PANEL FASTING CHOLESTEROL IN LDL [MASS/VOLUM E] IN SERUM OR PLASMA BY CALCULATION 138 mg/dL 0 - 129 06/10 H Specimen Type: SERUM No comment entered. Ordering Provider: KO SHEPARD Report Released Date/Time: Jun 10, 2024 09:46 AM Reporting Lab: [facility] [address] [facility] [address] Performing Lab: [address] [address] [place] LIPID PANEL FASTING CHOLESTEROL .TOTAL/CHOL ESTEROL IN HDL [MASS RATIO] IN SERUM OR PLASMA 4.3 06/10 Specimen Type: SERUM No comment entered. Ordering Provider: KO SHEPARD Report Released Date/Time: Jun 10, 2024 09:46 AM Reporting Lab: [address] [address] Performing Lab: [facility] [address] [address] [place] LIPID PANEL FASTING CHOLESTEROL IN HDL [MASS/VOLUM E] IN SERUM OR PLASMA 47 mg/dL 40 - 60 06/10 Specimen Type: SERUM No comment entered. Ordering Provider: KO SHEPARD Report Released Date/Time: Jun 10, 2024 09:46 AM Reporting Lab: [facility] [address] [address] Performing Lab: [address] [address] [place] LIVER FUNCTION PROTEIN [MASS/VOLUM E] IN SERUM OR PLASMA 7.0 g/dL 6.0 - 8.3 06/10 Specimen Type: SERUM No comment entered. Ordering Provider: KO SHEPARD Report Released Date/Time: Jun 10, 2024 09:46 AM Reporting Lab: [facility] [place] [facility] [address] [facility] [address] Performing Lab: [facility]OSPITALRBRYCE HOSPITALTRN [facility]ITALUSETS [facility] [address] [facility] [address] [place] LIVER FUNCTION ALBUMIN [MASS/VOLUM E] IN SERUM OR PLASMA 3.8 g/dL 3.5 - 5.0 06/10 Specimen Type: SERUM No comment entered. Ordering Provider: KO SHEPARD Report Released Date/Time: Jun 10, 2024 09:46 AM Reporting Lab: [facility]PITALRBRYCE HOSPITALTRN [facility] [address] [facility] [address] Performing Lab: [facility]OSPITALRCARRAWAY [facility]IST [facility]ICAL CENTERN [facility]ITALUSE[facility] [address] [facility] [address] [place] LIVER FUNCTION ALKALINE PHOSPHATASE [ENZYMATIC ACTIVITY/VO LUME] IN SERUM OR PLASMA 78 U/L 40 - 150 06/10 Specimen Type: SERUM No comment entered. Ordering Provider: KO SHEPARD Report Released Date/Time: Jun 10, 2024 09:46 AM Reporting Lab: [facility]PITALRBRYCE HOSPITALTRN [facility]ITALUSE[facility] [address] [facility] [address] Performing Lab: [facility]OS[facility]ITALRL TRN [facility]ITALUSE[facility] [address] [facility] [address] [place] LIVER FUNCTION ASPARTATE AMINOTRANSF ERASE [ENZYMATIC ACTIVITY/VO LUME] IN SERUM OR PLASMA 22 U/L 5 - 34 06/10 Specimen Type: SERUM No comment entered. Ordering Provider: KO SHEPARD Report Released Date/Time: Jun 10, 2024 09:46 AM Reporting Lab: [facility]ITALRL TRN [facility]ITALUSETS [facility] [address] [facility] [address] Performing Lab: [facility]PITALRCARRAWAY [facility] CENTERN [facility]ITALUSE[facility] [address] [facility] [address] [place] LIVER FUNCTION ALANINE AMINOTRANSF ERASE [ENZYMATIC ACTIVITY/VO LUME] IN SERUM OR PLASMA 28 U/L 06/10 Specimen Type: SERUM No comment entered. Ordering Provider: KO SHEPARD Report Released Date/Time: Jun 10, 2024 09:46 AM Reporting Lab: [facility] [address] [address] Performing Lab: [facility] [place] [address] [address] [place] LIVER FUNCTION BILIRUBIN.T OTAL [MASS/VOLUM E] IN SERUM OR PLASMA 0.5 mg/dL 0.2 - 1.2 06/10 Specimen Type: SERUM No comment entered. Ordering Provider: KO SHEPARD Report Released Date/Time: Jun 10, 2024 09:46 AM Reporting Lab: [facility] [address] [address] Performing Lab: [facility] [address] [address] [place] CBC AND DIFF (AUTO) LEUKOCYTES [#/VOLUME] IN BLOOD BY AUTOMATED COUNT 3.69 10*3/u L 4.50 - 11.00 06/10 L Specimen Type: BLOOD No comment entered. Ordering Provider: KO SHEPARD Report Released Date/Time: Jun 10, 2024 09:46 AM Reporting Lab: [facility] [place] [address] [address] Performing Lab: [facility] [place] [address] [address] [place] CBC AND DIFF (AUTO) ERYTHROCYTE S [#/VOLUME] IN BLOOD BY AUTOMATED COUNT 4.79 10*6/u L 4.23 - 5.66 06/10 Specimen Type: BLOOD No comment entered. Ordering Provider: KO SHEPARD Report Released Date/Time: Jun 10, 2024 09:46 AM Reporting Lab: [facility] [place] [address] [address] Performing Lab: [facility] [place] [address] [address] [place] CBC AND DIFF (AUTO) HEMOGLOBIN [MASS/VOLUM E] IN BLOOD 14.9 g/dL 12.8 - 17 06/10 Specimen Type: BLOOD No comment entered. Ordering Provider: KO SHEPARD Report Released Date/Time: Jun 10, 2024 09:46 AM Reporting Lab: [facility] [place] [facility] [address] [facility] [address] Performing Lab: [facility] [place] [facility] [address] [facility] [address] [place] CBC AND DIFF (AUTO) HEMATOCRIT [VOLUME FRACTION] OF BLOOD BY AUTOMATED COUNT 42.2 39.2 - 50.4 06/10 Specimen Type: BLOOD No comment entered. Ordering Provider: KO SHEPARD Report Released Date/Time: Jun 10, 2024 09:46 AM Reporting Lab: [facility] [place] [facility] [address] [facility] [address] Performing Lab: [facility] [place] [facility] [address] [facility] [address] [place] CBC AND DIFF (AUTO) MCV [ENTITIC VOLUME] BY AUTOMATED COUNT 88.1 fL 82 - 99 06/10 Specimen Type: BLOOD No comment entered. Ordering Provider: KO SHEPARD Report Released Date/Time: Jun 10, 2024 09:46 AM Reporting Lab: [facility] [place] [facility] [address] [facility] [address] Performing Lab: [facility] [place] [facility] [address] [facility] [address] [place] CBC AND DIFF (AUTO) MCHC [MASS/VOLUM E] BY AUTOMATED COUNT 35.3 g/dL 30.8 - 35.1 06/10 H Specimen Type: BLOOD No comment entered. Ordering Provider: KO SHEPARD Report Released Date/Time: Jun 10, 2024 09:46 AM Reporting Lab: [facility] [place] [facility] [address] [facility] [address] Performing Lab: [facility] [place] [address] [address] [place] CBC AND DIFF (AUTO) PLATELETS [#/VOLUME] IN BLOOD BY AUTOMATED COUNT 259 10*3/u L 140 - 360 06/10 Specimen Type: BLOOD No comment entered. Ordering Provider: KO SHEPARD Report Released Date/Time: Jun 10, 2024 09:46 AM Reporting Lab: [facility] [place] [address] [address] Performing Lab: [facility] [place] [address] [address] [place] CBC AND DIFF (AUTO) ERYTHROCYTE DISTRIBUTIO N WIDTH [RATIO] BY AUTOMATED COUNT 11.9 12.0 - 16.0 06/10 L Specimen Type: BLOOD No comment entered. Ordering Provider: KO SHEPARD Report Released Date/Time: Jun 10, 2024 09:46 AM Reporting Lab: [facility] [place] [address] [address] Performing Lab: [facility] [place] [address] [address] [place] CBC AND DIFF (AUTO) MONOCYTES [#/VOLUME] IN BLOOD BY AUTOMATED COUNT 0.29 10*3/u L 0.30 - 1.10 06/10 L Specimen Type: BLOOD No comment entered. Ordering Provider: KO SHEPARD Report Released Date/Time: Jun 10, 2024 09:46 AM Reporting Lab: [facility] [place] [address] [address] Performing Lab: [facility] [place] [address] [address] [place] CBC AND DIFF (AUTO) MCH [ENTITIC MASS] BY AUTOMATED COUNT 31.1 pg 26.2 - 32.6 06/10 Specimen Type: BLOOD No comment entered. Ordering Provider: KO SHEPARD Report Released Date/Time: Jun 10, 2024 09:46 AM Reporting Lab: [facility] [place] [address] [address] Performing Lab: [facility] [place] [facility] [address] [facility] [address] [place] CBC AND DIFF (AUTO) NEUTROPHILS /100 LEUKOCYTES IN BLOOD BY AUTOMATED COUNT 42.5 43.7 - 75.8 06/10 L Specimen Type: BLOOD No comment entered. Ordering Provider: KO SHEPARD Report Released Date/Time: Jun 10, 2024 09:46 AM Reporting Lab: [facility] [place] [address] [address] Performing Lab: [facility] [place] [address] [address] [place] CBC AND DIFF (AUTO) LYMPHOCYTES /100 LEUKOCYTES IN BLOOD BY AUTOMATED COUNT 46.6 14.0 - 42.3 06/10 H Specimen Type: BLOOD No comment entered. Ordering Provider: KO SHEPARD Report Released Date/Time: Jun 10, 2024 09:46 AM Reporting Lab: [facility] [place] [address] [address] Performing Lab: [facility] [place] [address] [address] [place] CBC AND DIFF (AUTO) MONOCYTES/1 00 LEUKOCYTES IN BLOOD BY AUTOMATED COUNT 7.9 5.1 - 13.7 06/10 Specimen Type: BLOOD No comment entered. Ordering Provider: KO SHEPARD Report Released Date/Time: Jun 10, 2024 09:46 AM Reporting Lab: [facility] [place] [address] [address] Performing Lab: [facility] [place] [address] [address] [place] CBC AND DIFF (AUTO) EOSINOPHILS /100 LEUKOCYTES IN BLOOD BY AUTOMATED COUNT 1.9 0.4 - 6.8 06/10 Specimen Type: BLOOD No comment entered. Ordering Provider: KO SHEPARD Report Released Date/Time: Jun 10, 2024 09:46 AM Reporting Lab: [facility] [address] [facility] [address] Performing Lab: [facility] [address] [facility] [address] [place] CBC AND DIFF (AUTO) BASOPHILS/1 00 LEUKOCYTES IN BLOOD BY AUTOMATED COUNT 0.8 0.1 - 2.0 06/10 Specimen Type: BLOOD No comment entered. Ordering Provider: KO SHEPARD Report Released Date/Time: Jun 10, 2024 09:46 AM Reporting Lab: [facility] [address] [address] Performing Lab: [facility] [address] [address] [place] CBC AND DIFF (AUTO) NEUTROPHILS [#/VOLUME] IN BLOOD BY AUTOMATED COUNT 1.57 10*3/u L 2.20 - 7.60 06/10 L Specimen Type: BLOOD No comment entered. Ordering Provider: KO SHEPARD Report Released Date/Time: Jun 10, 2024 09:46 AM Reporting Lab: [facility] [address] [address] Performing Lab: [facility] [address] [address] [place] CBC AND DIFF (AUTO) LYMPHOCYTES [#/VOLUME] IN BLOOD BY AUTOMATED COUNT 1.72 10*3/u L 1.00 - 3.20 06/10 Specimen Type: BLOOD No comment entered. Ordering Provider: KO SHEPARD Report Released Date/Time: Jun 10, 2024 09:46 AM Reporting Lab: [facility]ITALTRN [facility]USE[address] [address] Performing Lab: [facility] [address] [address] [place] CBC AND DIFF (AUTO) EOSINOPHILS [#/VOLUME] IN BLOOD BY AUTOMATED COUNT 0.07 10*3/u L 0.03 - 0.44 06/10 Specimen Type: BLOOD No comment entered. Ordering Provider: KO SHEPARD Report Released Date/Time: Jun 10, 2024 09:46 AM Reporting Lab: [facility] [address] [facility] [address] Performing Lab: [facility] [address] [facility] [address] [place] CBC AND DIFF (AUTO) BASOPHILS [#/VOLUME] IN BLOOD BY AUTOMATED COUNT 0.03 10*3/u L 0.01 - 0.13 06/10 Specimen Type: BLOOD No comment entered. Ordering Provider: KO SHEPARD Report Released Date/Time: Jun 10, 2024 09:46 AM Reporting Lab: [facility] [address] [address] Performing Lab: [facility] [address] [address] [place] CBC AND DIFF (AUTO) IMMATURE GRANULOCYTE S/100 LEUKOCYTES IN BLOOD BY AUTOMATED COUNT 0.3 0.0 - 0.7 06/10 Specimen Type: BLOOD No comment entered. Ordering Provider: KO SHEPARD Report Released Date/Time: Jun 10, 2024 09:46 AM Reporting Lab: [facility] [address] [address] Performing Lab: [facility] [address] [address] [place] CBC AND DIFF (AUTO) IMMATURE GRANULOCYTE S [#/VOLUME] IN BLOOD 0.01 10*3/u L 0.00 - 0.06 06/10 Specimen Type: BLOOD No comment entered. Ordering Provider: KO SHEPARD Report Released Date/Time: Jun 10, 2024 09:46 AM Reporting Lab: [facility] [address] [address] Performing Lab: [facility] [address] [address] [place] CBC AND DIFF (AUTO) NRBC % 0.0 0.0 - 0.0 06/10 Specimen Type: BLOOD No comment entered. Ordering Provider: KO SHEPARD Report Released Date/Time: Jun 10, 2024 09:46 AM Reporting Lab: [address] [address] Performing Lab: [address] [address] [place] CBC AND DIFF (AUTO) NRBC, ABS 0.00 10*3/u L 0.00 - 0.00 06/10 Specimen Type: BLOOD No comment entered. Ordering Provider: KO SHEPARD Report Released Date/Time: Jun 10, 2024 09:46 AM Reporting Lab: [address] [address] Performing Lab: [address] [address] [place] HEMOGLOBI N A1C PANEL HEMOGLOBIN A1C/HEMOGLO BIN.TOTAL IN BLOOD BY HPLC 5.4 4.0 - 5.6 06/10 Specimen Type: BLOOD Comment: Values obtained from A1C measurement s can vary. For atypical A1C assays, a reported value of 7.0 could actually be between 6.72 and 7.28 if measured by a reference method. A reported value of 9.0 could actually be between 8.73 and 9.27. Ref: http://www. ngsp.org/[place] Pdata.asp Ordering Provider: KO SHEPARD Report Released Date/Time: Jun 10, 2024 09:46 AM Reporting Lab: [address] [address] Performing Lab: [address] [address] [place] TSH THYROTROPIN [UNITS/VOLU ME] IN SERUM OR PLASMA 2.22 u[IU]/ mL 0.35 - 5.00 06/10 Specimen Type: SERUM No comment entered. Ordering Provider: KO SHEPARD Report Released Date/Time: Jun 10, 2024 09:46 AM Reporting Lab: [facility] [address] [facility] [address] Performing Lab: [facility] [address] [facility] [address] [place] VITAMIN D (25-OH) 25-HYDROXYV ITAMIN D3 [MASS/VOLUM E] IN SERUM OR PLASMA 22 ng/mL 20 - 50 06/10 Specimen Type: SERUM No comment entered. Ordering Provider: KO SHEPARD Report Released Date/Time: Jun 10, 2024 09:46 AM Reporting Lab: [facility] [address] [address] Performing Lab: [address] [address] [place] HEPATITIS C ANTIBODY (HCV)-ARC HEPATITIS C VIRUS AB [PRESENCE] IN SERUM NON-RE ACTIVE 06/24 Specimen Type: SERUM Comment: Hep C Ab: No HCV antibody detected. If recent infection is suspected or other evidence suggests HCV infection, consider HCV nucleic acid testing Ordering Provider: KO SHEPARD Report Released Date/Time: Jun 24, 2023 12:28 PM Reporting Lab: [address] [address] Performing Lab: [facility]USE[address] [address] [place] BASIC METABOLIC PANEL (fasting) UREA NITROGEN [MASS/VOLUM E] IN SERUM OR PLASMA 24 mg/dL 7 - 25 06/24 Specimen Type: SERUM No comment entered. Ordering Provider: KO SHEPARD Report Released Date/Time: Apr 24, 2023 11:20 AM Reporting Lab: [address] [address] Performing Lab: [facility] [address] [place] BASIC METABOLIC PANEL (fasting) GLUCOSE [MASS/VOLUM E] IN SERUM OR PLASMA 88 mg/dL 65 - 100 06/24 Specimen Type: SERUM No comment entered. Ordering Provider: KO SHEPARD Report Released Date/Time: Apr 24, 2023 11:20 AM Reporting Lab: [address] [address] Performing Lab: [address] [address] [place] BASIC METABOLIC PANEL (fasting) SODIUM [MOLES/VOLU ME] IN SERUM OR PLASMA 138 mmol/L 135 - 145 06/24 Specimen Type: SERUM No comment entered. Ordering Provider: KO SHEPARD Report Released Date/Time: Apr 24, 2023 11:20 AM Reporting Lab: [address] [address] Performing Lab: [address] [address] [place] BASIC METABOLIC PANEL (fasting) POTASSIUM [MOLES/VOLU ME] IN SERUM OR PLASMA 4.3 mmol/L 3.5 - 5.0 06/24 Specimen Type: SERUM No comment entered. Ordering Provider: KO SHEPARD Report Released Date/Time: Apr 24, 2023 11:20 AM Reporting Lab: [address] [address] Performing Lab: [address] [address] [place] BASIC METABOLIC PANEL (fasting) CHLORIDE [MOLES/VOLU ME] IN SERUM OR PLASMA 102 mmol/L 100 - 110 06/24 Specimen Type: SERUM No comment entered. Ordering Provider: KO SHEPARD Report Released Date/Time: Apr 24, 2023 11:20 AM Reporting Lab: [address] [address] Performing Lab: [facility] [address] [facility] [address] [place] [employer] BASIC METABOLIC PANEL (fasting) CARBON DIOXIDE, TOTAL [MOLES/VOLU ME] IN SERUM OR PLASMA 27 meq/L 20 - 30 06/24 Specimen Type: SERUM No comment entered. Ordering Provider: KO SHEPARD Report Released Date/Time: Apr 24, 2023 11:20 AM Reporting Lab: [facility] [address] [facility] [address] Performing Lab: [address] [address] [place] [employer] BASIC METABOLIC PANEL (fasting) CREATININE [MASS/VOLUM E] IN SERUM OR PLASMA 1.22 mg/dL 0.50 - 1.40 06/24 Specimen Type: SERUM No comment entered. Ordering Provider: KO SHEPARD Report Released Date/Time: Apr 24, 2023 11:20 AM Reporting Lab: [facility] [address] [address] Performing Lab: [facility] [address] [address] [place] [employer] BASIC METABOLIC PANEL (fasting) GLOMERULAR FILTRATION RATE/1.73 SQ M.PREDICTED [VOLUME RATE/AREA] IN SERUM, PLASMA OR BLOOD BY CREATININE- BASED FORMULA (CKD-EPI) 74 mL/min 60 06/24 Specimen Type: SERUM No comment entered. Ordering Provider: KO SHEPARD Report Released Date/Time: Apr 24, 2023 11:20 AM Reporting Lab: [address] [address] Performing Lab: [address] [address] [facility] V[facility] Sign[facility] Combined list of inpatient and outpatient Vital Signs from Department of Defense and Veterans Affairs, ranging from 12 months to all on record, depending upon the facility. Vital Sign Value Date Comments Source SYSTOLIC BLOOD PRESSURE 118 06/10/2024 09:07:12 [place] DIASTOLIC BLOOD PRESSURE 81 06/10/2024 09:07:12 [place] PULSE OXIMETRY 97 06/10/2024 09:07:12 [place] WEIGHT 276.2 06/10/2024 09:07:12 [place] BMI 36 kg/m2 06/10/2024 09:07:12 [place] TEMPERATURE 98.4 06/10/2024 09:07:12 [place] PULSE 70 06/10/2024 09:07:12 [place] SYSTOLIC BLOOD PRESSURE 124 04/27/2024 15:40:04 [place] DIASTOLIC BLOOD PRESSURE 78 04/27/2024 15:40:04 [place] PULSE OXIMETRY 96 04/27/2024 15:40:04 [place] WEIGHT 273.2 04/27/2024 15:40:04 [place] BMI 35 kg/m2 04/27/2024 15:40:04 [place] TEMPERATURE 98.1 04/27/2024 15:40:04 [place] PULSE 71 04/27/2024 15:40:04 [place] Encounters Combined list of: 1) Encounters from Department of Veterans Affairs facilities going backup to the last 18 months, not all VA inpatient encounters are included; 2) Encounters from the Department of Defense facilities going backup to 280 months. Location Location Details Encounter Type Encounter Number Reason For Visit Attending Provider ADM Date DC Date Status Disposition Source [facility](Nut rition [facility] [place]) OUTPATIENT [id number] HLP class [place] 02/24 Released w/o Limitations [facility](N utritio n Cl [place]) [facility] r[facility] [place]) OUTPATIENT [id number] BCIP class #1 [place] 03/05 Released w/o Limitations [facility](N utritio n Cl [place]) [facility](Nut rition [facility] [place]) OUTPATIENT [id number] BCIP class #2 [place] 03/12 Released w/o Limitations [facility](N utritio n Cl [place]) [facility](Nut rition [facility] [place]) OUTPATIENT [id number] [facility] Support Group [place] R 04/02 Released w/o Limitations [facility](N noam n Cl [place]) [facility](Nut terezaion Cl [place]) OUTPATIENT [id number] BCIP SUPPORT GROUP [place] Janet 06/04 Released w/o Limitations [facility](N noam n Cl [place]) [facility] Team A) TELE CONSULT [id number] Notes Entered by: MAGO ZUÑIGA 16 Feb 2013 0906 ------- ------- ------- ------- -- Profile PING FELICIANO 02/16 [facility] Team A) [facility] Team A) TELE CONSULT [id number] Notes Entered by: SARIKA RODRIGUEZ 24 Feb 2013 0940 ------- ------- ------- ------- -- Con Leave BETY GLASS 02/24 [facility] Team A) [facility] Team A) TELE CONSULT [id number] Notes Entered by: ELLI RAMIREZ 23 May 2015 1030 ------- ------- ------- ------- -- Con Leave CHRISTIANO RAMIREZ 05/23 Other Not Elsewhere Classified [facility] Team A) [facility] Team A) TELE CONSULT [id number] Notes Entered by: MONIK BOWLES 01 Jun 2015 0809 ------- ------- ------- ------- -- Con Leave lori THOMPSONDENYTHOMASO Angelica 06/01 [facility] Team A) [facility] Team A) TELE CONSULT [id number] Notes Entered by: ELLI RAMIREZ 20 Jun 2015 0801 ------- ------- ------- ------- -- Profile TOM SHOOKELINA 06/20 Referred for Appointment [facility] Team [facility]) [employer]([facility] Team A) TELE CONSULT [id number] Notes Entered by: MAGO ZUÑIGA 23 Jun 2015 1359 ------- ------- ------- ------- -- GSU-Pro file TOM SHOOKELINA 06/23 Referred for Appointment [facility] Team A) [employer]([facility] Team A) TELE CONSULT [id number] Notes Entered by: MONIK BOWLES 05 Jul 2015 0954 ------- ------- ------- ------- -- CHRISTIANO Pace 07/05 Referred for Appointment [facility] Team A) [employer]([facility] Team A) TELE CONSULT [id number] Notes Entered by: MONIK BOWLES 17 Aug 2015 1120 ------- ------- ------- ------- -- CHRISTIANO Pace 08/17 Referred for Appointment [employer] Team A) [employer]([facility] Team A) TELE CONSULT [id number] Notes Entered by: ELLI RAMIREZ 17 Aug 2015 1128 ------- ------- ------- ------- -- RAMON Oliver 08/17 Referred for Appointment [facility] Team A) [employer]([facility] Team A) TELE CONSULT [id number] Notes Entered by: MONIK BOWLES 05 Sep 2015 1246 ------- ------- ------- ------- -- Profile CHRISTIANO Mahmood 09/05 Referred for Appointment [facility] Team A) [facility] TELE CONSULT [id number] Notes Entered by: Stephany GRAFF 15 Sep 2015 1325 ------- ------- ------- ------- -- Profile WILVERLEONARDO SCHROEDERAngelia Alicea 09/15 Referred for Appointment [facility] Team [facility]) [facility] En[facility] [id number] 10/28 [facility] En[facility] [id number] 12/12 [facility] Encounter [id number] 04/27 [facility] [place] AD[place] [id number] JACKLYN HWANG 06/10 [facility] [place] OFFICE O/P EST LOW 20 MIN [id number] Diagnos is: ICD-10- CM Z00.8 Encount er for other general examina tion JACKLYN HWANG 06/10 [place] SELF CARE MNGMENT TRAINING [id number] Diagnos is: ICD-10- CM M25.569 Pain in unspeci fied knee CHRIS HARRINGTON 07/06 [place] THERAPEUTI [place] EXERCISES [id number] Diagnos is: ICD-10- CM M25.569 Pain in unspeci fied knee Nixon FRIED 07/15 [place] THERAPEUTI [place] EXERCISES [id number] Diagnos is: ICD-10- CM M25.569 Pain in unspeci fied knee Nixon FRIED 07/29 [place] [facility] Outpatient Encounter [id number] 07/29 [facility] [place] [facility] [place] THERAPEUTI [place] EXERCISES [id number] Diagnos is: ICD-10- CM M25.569 Pain in unspeci fied knee CHRIS HARRINGTON 08/12 [place] THERAPEUTI C EXERCISES [id number] Diagnos is: ICD-10- CM M25.569 Pain in unspeci fied knee CHRIS HARRINGTON 08/26 [place] [facility] Outpatient Encounter [id number] 1.08/26 [facility] [place] [facility] [place] SLEEP STUDY UNATT&RESP EFFT [id number] 1BY. 37 Diagnos is: ICD-10- CM G47.30 Sleep apnea, unspeci fied DEYANIRAEMIR Castañeda 08/26 [place] THERAPEUTI [place] EXERCISES [id number] Diagnos is: ICD-10- CM M25.569 Pain in unspeci fied knee CHRIS HARRINGTON 08/30 [place] [facility] Outpatient Encounter [id number] 08/30 [facility] [place] [facility] [place] THERAPEUTI [place] EXERCISES [id number] Diagnos is: ICD-10- CM M25.569 Pain in unspeci fied knee Nixon FRIED 09/09 [place] SELF CARE MNGMENT TRAINING [id number] 1BY. 61 Diagnos is: ICD-10- CM M25.569 Pain in unspeci fied knee CHRIS HARRINGTON 09/13 [facility]ELD [facility] UNATT&RESP EFFT [id number] Diagnos is: ICD-10- CM R06.83 Snoring [facility] 11/11 [place] [facility] UNATT&RESP EFFT [id number] Diagnos is: ICD-10- CM G47.33 Obstruc tive sleep apnea (adult) ([facility]) VINCENZO MILLER 12/01 [place] [facility] Outpatient Encounter [id number] 12/08 [facility] [place] [facility] AUDIO-ONLY NEW LOW 30 [id number] Diagnos is: ICD-10- CM G47.33 Obstruc tive sleep apnea (adult) ([facility]) VINCENZO MILLER 01/31 [place] [facility] Outpatient Encounter [id number] 02/01 [facility] [place] [facility] [place] [facility] OFFICE O/P NEW LOW 30 MIN [id number] Diagnos is: ICD-10- CM G47.33 Obstruc tive sleep apnea (adult) ([facility]) CHET GAN CTORIA Yessenia 03/21 [facility] [place] [facility] Outpatient Encounter [id number] 03/21 [facility] HEARING AID XM&SLCTN BINAURL [id number] Diagnos is: ICD-10- CM H90.3 Sensori neural hearing loss, bilLUL Christensen 03/23 [facility] Procedures Combined list of: 1) Procedures from Department of Veterans Affairs facilities going back up to thelast 18 months, not all VA non-surgical procedures are included; 2) All procedures from the Department of Defense facilities. Procedure Procedure Type Code Date Perfomer Comments Sourc e PURE TONE AUDIOMETRY (THRESHOLD); AIR ONLY 11/08/2003 [facility] MEDICAL NUTRITION THERAPY; GROUP (2 OR MORE INDIVIDUAL(S)), EACH 30 MINUTES 06/03/2007 [facility] MEDICAL NUTRITION THERAPY; GROUP (2 OR MORE INDIVIDUAL(S)), EACH 30 MINUTES 04/01/2007 [facility] MEDICAL NUTRITION THERAPY; GROUP (2 OR MORE INDIVIDUAL(S)), EACH 30 MINUTES 03/12/2007 [facility] MEDICAL NUTRITION THERAPY; GROUP (2 OR MORE INDIVIDUAL(S)), EACH 30 MINUTES 03/05/2007 [facility] MEDICAL NUTRITION THERAPY; GROUP (2 OR MORE INDIVIDUAL(S)), EACH 30 MINUTES 02/24/2007 [facility] Medical Nutrition Therapy Group (2 or More Individual(s)) Medical Nutrition Therapy Group (2 or More Individual(s)) [id number] 06/04/2007 [facility] class time [id number] [facility] Medical Nutrition Therapy Group (2 or More Individual(s)) Medical Nutrition Therapy Group (2 or More Individual(s)) [id number] 04/02/2007 [facility] [id number] [facility] Medical Nutrition Therapy Group (2 or More Individual(s)) Medical Nutrition Therapy Group (2 or More Individual(s)) [id number] 03/12/2007 [facility] Class time [id number] [facility] Medical Nutrition Therapy Group (2 or More Individual(s)) Medical Nutrition Therapy Group (2 or More Individual(s)) [id number] 03/05/2007 [facility] Class Time: [id number] [facility] Medical Nutrition Therapy Group (2 or More Individual(s)) Medical Nutrition Therapy Group (2 or More Individual(s)) [id number] 02/24/2007 [facility] class time [id number] [facility] Clinic Social History Combined list of available smoking, tobacco, and other social history from Department of Defense and Veterans Affairs facilities. Social History Type Response Date Comment Source Tobacco smoking status [facility]-TOBACCO FORMER USER 06/10/2024 [facility] of [facility] [place] of tobacco use [place] FOR[place] 06/24/2023 [facility] History of tobacco use QUIT TOBACCO USE IN PAST YEAR 01/02/2004 3 month ago [facility] History of tobacco use CURRENT SMOKER 12/27/2003 quit 3 months ago [facility] This section is an empty social history section. [facility] Plan of Care List of future care activities from Department of Veterans Affairs facilities. Additional future care activities may be listed in the Assessment and Plan section. Date/Time Care Activity Care Activity Detail Facili ty 04/21/2025 AMBULATORY - REHAB MEDICINE AMBULATORY - REHAB MEDICINE [facility]
--- OUTSIDE RECORDS SUMMARY | 2025-03-30 10:03 | XMS_ITS | Encounter Summary ---
Author Name [facility] [place] Address [address] [place] [address] Care Team Providers Care Mate Chief Name Role Phone JENNIFER KARIMI Primary Care [...] (PPO) ACTIV E LOCAL 1458Nov 24, 2020 [id number] [phone] RYDER,MARI EL PATIENT BCBS [place] (BLUE CARD) PREFERRED PROVIDER ORGANIZAT ION (PPO) ACTIV E LOCAL 145Nov 24, 2020 [id number] RYDER,MARI EL PATIENT [place] (BLUECARD) PREFERRED PROVIDER ORGANIZAT ION (PPO) LOCAL 145Nov 24, 2020 [id number] RYDER,MARI EL PATIENT OPTUM RX PRESCRIPT ION NEUFC W Nov 24, 2020 NEUFCW [id number] [phone] MARI RYDER PATIENT OPTUM RX PRESCRIPT ION NEUFC W Nov 24, 2020 NEUW [id number] MARI RYDER EL PATIENT OPTUM RX PRESCRIPT ION UFCW NE HEALT Stephany FUND Nov 24, 2020 NEUW [id number] MARI RYDER PATIENT Selected Encounter This section includes the information on record at [place] for the Encounter. Date/Time Encounter Type Encounter Description Reason Provider Source Mar 23, 2025 01:00 PM HEARING AID XM&SLCTN [facility] AUDIOLOGY ICD-10-CM H90.3 Sensorineural hearing loss, bilateral BONCZEK,HEYDI N L IHE Encounter Template Text not used by [place] Assessments - Encounter Diagnoses This section includes the primary and secondary diagnoses documented for the Encounter. Date/Time Primary/Secondary Diagnosis Diagnosis Name Provider Source Mar 23, 2025 01:48 PM PRIMARY Sensorineural hearing loss, bilateral THEODOREEK,HEYDI N L [place] [facility] [place] [facility] Mar 23, 2025 01:48 PM SECONDARY Tinnitus, bilateral BONCZEK,HEYDI N L [place] [facility] [place] [facility] Plan of Treatment: Future Appointments (+ 6 months) and Future Tests (+/- 45 days) The Plan of Treatment section includes future care activities for the patient from all [place] treatmentfacilities. This section includes future appointments and future orders which are active, pending or scheduled. Future Appointments This section includes appointments that were scheduled to occur 6 months from the date of the Encounter, up to a maximum of 20 appointments. The data comes from all [place] treatment facilities. Appointment Date/Time Appointment Type Appointme nt Facility Name April 21, 2025 09:00 AM AMBULATORY - [place]ICIN E [place] [facility] [place] [facility] Apr 25, 2025 01:00 PM AMBULATORY - NONE [place] [facility] [place] [facility] Jun 09, 2025 08:30 AM AMBULATORY - MEDICINE [facility] Social History: Smoking Status (Most current) and Tobacco Use (All prior to encounter date) This section includes the most current, and the historical, smoking and tobacco- related health factors from the [facility] facility where the Encounter took place. Current Smoking Status This section includes the most current smoking, or tobacco-related health factor, from the [place] facility where the Encounter took place. Date/Time Current Smoking Status Comment Facil ity Jun 10, 2024 09:00 AM [place]-TOBAC[place] FORMER USER [facility] Tobacco Use History This section includes a history of the smoking, or tobacco-related health factors, that were collected on or before the date of the Encounter. The data comes from the [place] facility where the Encounter took place. Date/Time Smoking Status/Tobacco Use Comment F acility Jun 10, 2024 09:00 AM [place]-TOBAC[place] QUIT 15 YRS OR MORE [facility] Jun 24, 2023 11:28 AM [place]-TOBAC[place] FORMER USER [facility] Jun 24, 2023 11:28 AM [place]-TOBAC[place] QUIT 15 YRS OR MORE [facility] Encounter Notes: All associated encounter notes This section contains the clinical notes associated to the Encounter. Date/Time Encounter Note(s) Provider Source Mar 23, 2025 01:21 PM AUDIOLOGY E & M NO TE: [facility] TITLE: AUDIOLOGY CLINIC STANDARD TITLE: AUDIOLOGY E & M NOTE DATE OF NOTE: MAR 23, 2025@13:21 ENTRY DATE: MAR 23, 2025@13:21:10 AUTHOR: MARGIE PRATHER COSIGNER: URGENCY: STATUS: COMPLETED AUDIOLOGY CLINIC Has ADDENDA [place] was seen March 23, 2025 for a hearing re-evaluation. His last hearing evaluation was on 05/06/22 for compensation and pension purposes. [place] reports, If someone is speaking at a distance I can't make out what they are saying. [place] reports longstanding, intermittent tinnitus in both ears. He denies previous or current hearing aid use. Medical history includes: Active problems - Computerized Problem List is the source for the followin. Obstructive sleep apnea of adult 2. Obesity (SCT [id number]) 3. Contact eczema eyelid 4. Pain of Both Knees (SCT [id number]) 5. Tinnitus 6. Pain radiating to left shoulder 7. Chronic back pain 8. Ganglion cyst of wrist Results of today's testing are as follow: Otoscopy was WNL bilaterally. Pure tone audiometric testing under headphones revealed a normal sloping to moderate, sensorineural hearing loss bilaterally. Word recognition scores were fair for each ear (72% right, 68% left) with recorded speech presented at 75 dB HL (contralateral masking). Normal tympanograms obtained bilaterally. Hearing is stable compared to his last hearing evaluation. Improvements noted in high frequency thresholds when rechecked with insert earphones. was counseled re: today's test results. He is a candidate for amplification and is eligible for [place] hearing aid services. Hearing aid styles and options were discussed with . [place] denies having a pacemaker and reports he is interested in rechargeable hearing aids. 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 New, binaural, Oticon Intent 1 mini [facility] hearing aids will be ordered in his color choice of black. RTC placed for a hearing aid fitting appointment in 4 weeks. /maria r/ Zoltan Cristina, CCC-A Wind Turbine Sheet Metal Worker Signed: 03/23/2025 13:52 03/28/2025 ADDENDUM STATUS: COMPLETED Hearing aids received and certified, upcoming appointment scheduled on 04/21/2025. /maria r/ SHAY CHRISTIANSON Audiology Health Automobile Service Writer Signed: 03/28/2025 11:23 [facility] [place] [facility]
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
--- OUTSIDE RECORDS SUMMARY | 2025-03-30 10:04 | XMS_ITS | Encounter Summary ---
Author Name [facility] [place] [facility] [place] Address [address] [place] [address] Care Team Providers Care Instrument Technologist Name Role Phone JENNIFER KARIMI Primary Care [...] (PPO) ACTIV E LOCAL 1458Nov 24, 2020 [id number] [phone] RYDER,MARI EL PATIENT BCBS [place] (BLUE CARD) PREFERRED PROVIDER ORGANIZAT ION (PPO) ACTIV E LOCAL 1458Nov 24, 2020 [id number] [phone] RYDER,MARI EL PATIENT [place] (BLUECARD) PREFERRED PROVIDER ORGANIZAT ION (PPO) LOCAL 1458Nov 24, 2020 [id number] RYDER,MARI EL PATIENT OPTUM RX PRESCRIPT ION NEUFC W Nov 24, 2020 NEUFCW [id number] RYDER,MARI EL PATIENT OPTUM RX PRESCRIPT ION NEUFC W Nov 24, 2020 [facility] UWSNE91 [id number] [phone] MARI SUMNER PATIENT OPTUM RX PRESCRIPT [facility] H FUND Nov 24, 2020 [facility] [id number] [phone] MARI SUMNER PATIENT Selected Encounter This section includes the information on record at [place] for the Encounter. Date/Time Encounter Type Encounter Description Reason Provider Source Jul 15, 2024 08:00 AM THERAPEUTIC EXERCISES PHYSICAL THERAPY ICD-10-CM M25.569 Pain in unspecified knee FARIHAHANSEL IN [facility] Encounter Template Text not used by [place] Assessments - Encounter Diagnoses This section includes the primary and secondary diagnoses documented for the Encounter. Date/Time Primary/Secondary Diagnosis Diagnosis Name Provider Source Jul 15, 2024 09:13 AM PRIMARY Pain in unspecified knee ARIAN FRIED BIA Plan of Treatment: Future Appointments (+ 6 months) and Future Tests (+/- 45 days) The Plan of Treatment section includes future care activities for the patient from all [place] treatmentfacilities. This section includes future appointments and future orders which are active, pending or scheduled. Future Appointments This section includes appointments that were scheduled to occur 6 months from the date of the Encounter, up to a maximum of 20 appointments. The data comes from all [place] treatment facilities. Appointment Date/Time Appointment Type Appointme nt Facility Name Jul 29, 2024 08:00 AM AMBULATORY - REHAB [facility] Aug 12, 2024 08:00 AM AMBULATORY - REHAB [facility] Aug 26, 2024 08:00 AM AMBULATORY - REHAB [facility] Aug 26, 2024 11:30 AM AM[facility]ULATORY - MEDICINE [facility] Aug 30, 2024 08:00 AM AMBULATORY - REHAB [facility] Sep 09, 2024 08:30 [facility] 13, 2024 08:00 AM AMBULATORY - REHAB [facility] Nov 11, 2024 12:00 PM [facility]ORY - [facility] Active, Pending, and Scheduled Orders This section includes a listing of several types of active, pending, and scheduled orders, including clinic medications orders, diagnostic test orders, procedure orders and consult orders; where the start date of the order is 45 days before the date of the Encounter or 45 days after the date of theEncounter. The data comes from all [place] treatment facilities. Test Date/Time Test Type Test Details Facility Name Jun 10, 2024 12:00 AM Laboratory - Chemi stry Order OCCULT BLOOD FIT X1 SCREEN(IN-HOUSE) STOOL [facility] Encounter Notes: All associated encounter notes This section contains the clinical notes associated to the Encounter. Date/Time Encounter Note(s) Provider Source Jul 15, 2024 09:09 AM PHYSICAL THERAPY N OTE: LOCAL TITLE: PHYSICAL THERAPY STANDARD TITLE: PHYSICAL THERAPY NOTE DATE OF NOTE: JUL 15, 2024@09:09 ENTRY DATE: JUL 15, 2024@09:09:23 AUTHOR: ARIAN FRIED EXP COSIGNER: URGENCY: STATUS: COMPLETED Initial Evaluation date: 07/06/24 Treatment #: 1 Treatment time: 30 min Diagnosis: Pain in unspecified Knee (ICD-10-CM M25.569) (Primary) Provider: FRANCISCO Lovell identified by full name and SUBJECTIVE: States that he's feeling about the same, still having generalized knee pain OBJECTIVE: THERAPEUTIC EXERCISE: MINUTES: 30 mins Nu-step 10 mins L3 HS, calf, quad S at the stairs bridging in supine bridging with LE on tball bridging with LE 90/90 on tball MANUAL THERAPY: MINUTES: GAIT TRAINING: MINUTES: NEUROMUSCULAR EDUCATION: MINUTES: OTHER: MINUTES: MODALITIES: MINUTES: [] Contraindication screen completed prior to modality [] Skin intact pre/post SELF CARE/EDUCATION: MINUTES: educated on the importance of low impact aerobic exercise. Patient education was provided for all aspects of care during this clinical encounter. ASSESSMENT: Tolerated session well, no c/o increase discomfort after session, only some mm fatigue PLAN: Aerobic exercise, low impact. Proximal hip stability training focusing on the hip internal/external rotators and abductors. Functional movement patterns to strengthen surrounding quad and hamstring muscles. Single leg dynamic movement to challenge and strengthen limits of knee stability. Bracing and modalities as required. /maria r/ SHREYAS MARTE LICENSE INTERNATIONAL LOGISTICS ANALYST Signed: 07/15/2024 09:13 ARIAN FRIED
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
--- OUTSIDE RECORDS SUMMARY | 2025-03-30 10:04 | XMS_ITS | Encounter Summary ---
Author Name [facility] Organization [facility] Address [address] [place] [address] Care Team Providers Care Review Trainer Name Role Phone JENNIFER KARIMI Primary Care [...] (PPO) ACTIV E LOCAL 1458Nov 24, 2020 [id number] [phone] RYDER,MARI EL PATIENT [place] ([place]) PREFERRED PROVIDER ORGANIZAT ION (PPO) ACTIV E LOCAL [id number] 24, 2020 [id number] RYDER,MARI EL PATIENT [place] ([place]) PREFERRED PROVIDER ORGANIZAT ION (PPO) LOCAL [id number] 24, 2020 [id number] [phone] RYDER,MARI EL PATIENT [facility] W Nov 24, 2020 [id number] RYDER,MARI EL PATIENT [facility] W Nov 24, 2020 [id number] [phone] MARI SUMNER PATIENT [facility] Nov 24, 2020 [id number] [phone] MARI SUMNER PATIENT Selected Encounter This section includes the information on record at [facility] for the Encounter. Date/Time Encounter Type Encounter Description Reason Provider Source Jul 29, 2024 08:00 AM THERAPEUTIC EXERCISES PHYSICAL THERAPY ICD-10-CM M25.569 Pain in unspecified knee HANSEL FRIED IN E Encounter Template Text not used by [facility] Assessments - Encounter Diagnoses This section includes the primary and secondary diagnoses documented for the Encounter. Date/Time Primary/Secondary Diagnosis Diagnosis Name Provider Source Jul 29, 2024 09:00 AM PRIMARY Pain in unspecified knee ARIAN FRIED CAMPOBELLO Plan of Treatment: Future Appointments (+ 6 months) and Future Tests (+/- 45 days) The Plan of Treatment section includes future care activities for the patient from all [facility] treatmentfacilities. This section includes future appointments and future orders which are active, pending or scheduled. Future Appointments This section includes appointments that were scheduled to occur 6 months from the date of the Encounter, up to a maximum of 20 appointments. The data comes from all [facility] treatment facilities. Appointment Date/Time Appointment Type Appointme nt Facility Name Aug 12, 2024 08:00 AM [facility]ULATORY - [facility] Aug 26, 2024 08:00 AM AMBULATORY - REHAB [facility] Aug 26, 2024 11:30 AM [facility] MED[facility]INE [facility] Aug 30, 2024 08:[facility], [facility] 08:[facility] 13, 2024 08:00 [facility] Nov 11, 2024 12:00 PM AM[facility]ULAT[facility] - MEDICINE [facility] Encounter Notes: All associated encounter notes This section contains the clinical notes associated to the Encounter. Date/Time Encounter Note(s) Provider Source Jul 29, 2024 08:36 AM PHYSICAL THERAPY N OTE: LOCAL TITLE: PHYSICAL THERAPY STANDARD TITLE: PHYSICAL THERAPY NOTE DATE OF NOTE: JUL 29, 2024@08:36 ENTRY DATE: JUL 29, 2024@08:36:56 AUTHOR: ARIAN FRIED EXP COSIGNER: URGENCY: STATUS: COMPLETED Initial Evaluation date: 07/06/24 Treatment #: 2 Treatment time: 30 min Diagnosis: Pain in unspecified Knee (ICD-10-CM M25.569) (Primary) Provider: FRANCISCO Lovell identified by full name and SUBJECTIVE: States that he had 2 wks off of work, knee is feeling better but still little sore lateral knee OBJECTIVE: THERAPEUTIC EXERCISE: MINUTES: 25 mins Nu-step 10 mins L3 clamshells in S/L with gtband glute Abd in S/L with gtband fire hydrant in quad. with gtband bird dogs in quad. MANUAL THERAPY: MINUTES: 5 mins foam rolled ITB, quad, HS in S/L GAIT TRAINING: MINUTES: NEUROMUSCULAR EDUCATION: MINUTES: OTHER: MINUTES: MODALITIES: MINUTES: [] Contraindication screen completed prior to modality [] Skin intact pre/post SELF CARE/EDUCATION: MINUTES: Access Code: [email or web address] URL: [email or web address] Date: 07/29/2024 Prepared by: [facility] Exercises - Standing Hamstring Stretch on Chair - 1 x daily - 7 x weekly - 3 sets - 3 reps - 30 hold - Standing Gastroc Stretch on Step with Counter Support - 1 x daily - 7 x weekly - 3 sets - 3 reps - 30 hold - Quadriceps Stretch with Chair - 1 x daily - 7 x weekly - 3 sets - 3 reps - 30 hold - Beginner Bridge - 1 x daily - 7 x weekly - 3 sets - 10 reps - Bridge with Arms at Sides and Feet on [place] Ball - 1 x daily - 7 x weekly - 3 sets - 10 reps - Supine Bridge with Heels on [place] Ball and Knees Bent - 1 x daily - 7 x weekly - 3 sets - 10 reps - Clamshell with Resistance - 1 x daily - 7 x weekly - 3 sets - 10 reps - Sidelying Diagonal Hip Abduction - 1 x daily - 7 x weekly - 3 sets - 10 reps - Quadruped Hip Abduction with Resistance Loop - 1 x daily - 7 x weekly - 3 sets - 10 reps - Bird Dog - 1 x daily - 7 x weekly - 3 sets - 10 reps Patient education was provided for all aspects of care during this clinical encounter. ASSESSMENT: Tolerated session well, feeling looser after session PLAN: Aerobic exercise, low impact. Proximal hip stability training focusing on the hip internal/external rotators and abductors. Functional movement patterns to strengthen surrounding quad and hamstring muscles. Single leg dynamic movement to challenge and strengthen limits of knee stability. Bracing and modalities as required. /es/ SHREYAS MARTE LICENSE MATERIALS COORDINATOR Signed: 07/29/2024 09:01 ARIAN FRIEDFIELD
== END 2025-03-30 10:25 | disposition home or self-care (01) ==
LOC: HO.HGI 09:21
PROVIDERS: PCP Internal Medicine; Visit Provider Nurse Practitioner
DX: Z01.818 Encounter for other preprocedural examination (principal); Z12.11 Encounter for screening for malignant neoplasm of colon; R12 Heartburn
CPT/HCPCS: S0285

== ENCOUNTER 2025-03-30 09:21 | Outpatient (REF) | payer BC, SELFPAY ==
[2025-03-30 14:40] LABS: H Pylori Breath Test Negative (Negative)
--- OUTSIDE RECORDS SUMMARY | 2025-03-30 14:50 | XMS_ITS | Continuity of Care Document ---
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 It does not include entries that were removed or entered in error. Problem Status Onset Date Problem Type Date of Resolution Comments Source visit for: administrative purpose Inactive Condition [facility] OVERWEIGHT Active Condition [facility] Patient Education - Dietary Active Condition This document acknowledges attendance in the AF Body Composition Improvement Program (BCIP). Pt is aware meeting is optional now that [employer] Fitness Stds are met.DIET: 2000 calorie wt [...] written, daily food records with calorie data [facility] Chronic back pain Active Condition [place] Contact eczema eyelid Active Condition [facility] Dermatophytosis * (ICD-9-CM 110.9) Active Condition [place] [facility] Ganglion cyst of wrist Active Condition Jun 24, 2023 Entered By: JENNIFER VALLECILLO Comment: left [facility] Obesity (SCT [id number]) Active Condition [facility] Obstructive sleep apnea of adult Active Condition Dec 05, 2024 Entered By: JENNIFER VALLECILLO Comment: SEVERE PRITESH 11/2024 [place] Obstructive sleep apnea of adult Active Condition [facility] Pain of Both Knees (SCT [id number]) Active Condition Jun 24 Entered By: JENNIFER VALLECILLO Comment: chronic, XR knee 04/2022 unremarkable [facility] Pain radiating to left shoulder Active Condition [facility] Tinnitus Active Condition [facility] Diagnosis: ICD-10-CM H90.3 Sensorineural hearing loss, bilateral Active Diagnosis [facility] Diagnosis: ICD-10-CM G47.33 Obstructive sleep apnea (adult) (pediatric) Active Diagnosis [facility] Diagnosis: ICD-10-CM R06.83 Snoring Active Diagnosis [facility] Diagnosis: ICD-10-CM M25.569 Pain in unspecified knee Active Diagnosis [facility] Diagnosis: ICD-10-CM G47.30 Sleep apnea, unspecified Active Diagnosis [facility] Diagnosis: ICD-10-CM Z00.8 Encounter for other general examination Active Diagnosis [facility] Medications Combined list of outpatient medications from [...] PROVIDED IN BOX TOPICA L ACTIVE 06/11/2025 [id number] JENNIFER THOMSON 2023 100 [place] LIDOCAINE 5% PATCH APPLY 1 PATCH TOPICALL Y ONCE DAILY FOR NERVE PAIN (LEAVE PATCH ON FOR 12 HOURS, THEN REMOVE PATCH) [place] L ACTIVE 06/11/2025 [id number] JENNIFER THOMSON 2023 30 [place] Allergies, Adverse Reactions, Alerts Combined list of allergies from Department of Defense and Veterans Affairs facilities. It does not include entries that were removed or entered in error. Substance Category Reaction Severity Reaction type Status Date Reported Comments Source No Known Allergies Drug allergy (disorder) active 01/02/2008 [facility] Immunizations Combined list of available immunizations from the Department of Defense and Veterans Affairs facilities. 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 (CSL) complet ed Influenza , seasonal, injectabl e DoD Influenza, seasonal, injectable, preservative free 0 2012 140 (MVX) complet ed Influenza , seasonal, injectabl e, preservat darius free DoD Influenza, seasonal, injectable 1 2012 [id number] 141 CS [employer] (CSL) complet ed Influenza , seasonal, injectabl e DoD tetanus toxoid, reduced diphtheria toxoid, and acellular pertu is vaccine, adsorbed 0 2011 [id number] 115 Sanofi Pasteur (PMC) complet ed tetanus toxoid, reduced diphtheri a toxoid, and acellular pertussis vaccine, adsorbed DoD TDAP 2011 115 complet ed HISTORICA L INFORMATI ON - FROM OTHER REGISTRY, [facility] [place] [facility] Influenza, seasonal, injectable 0 2011 141 [facility] [employer] (CSL) complet ed Influenza , seasonal, injectabl e DoD Influenza, seasonal, injectable, preservative free 1 2010 140 Novartis Pharmaceutica l Gisela. (NOV) complet ed Influenza , seasonal, injectabl e, preservat darius free DoD Influenza, seasonal, injectable 0 2010 141 Nov[employer]is [employer] l Gisela. (NOV) complet ed Influenza , seasonal, injectabl e DoD influenza virus vaccine, live, attenuated, for intranasal use 1 2009 [id number] 111 [employer] (MED) complet ed influenza virus vaccine, live, attenuate d, for intranasa l use DoD Novel influenza-H1N 1-09, injectable 1 2009 [id number] 1 127 Nov[employer]is [employer] Gisela. (NOV) complet ed Novel influenza -M8W2-23, injectabl e DoD influenza virus vaccine, live, attenuated, for intranasal use 1 2008 [id number] 111 [employer] ([facility]) complet ed influenza virus vaccine, live, attenuate d, for intranasa l use DoD typhoid Vi capsular polysaccharid e vaccine 1 2008 [id number] 101 Sanofi Pasteur ([facility]) complet ed typhoid Vi capsular polysacch aride vaccine DoD influenza virus vaccine, split virus (incl. purified surface antigen)-reti red CODE 1 2007 [id number] 15 [employer] [place] ([facility]) complet ed influenza virus vaccine, split virus (incl. purified surface antigen)- retired CODE DoD influenza virus vaccine, split virus (incl. purified surface antigen)-reti red CODE 1 2006 [id number] 15 [employer] [place] ([facility]) complet ed influenza virus vaccine, split virus (incl. purified surface antigen)- retired CODE DoD typhoid vaccine, parenteral, other than acetone-kille d, dried 1 2006 [id number] 41 [facility] ([facility]) complet ed typhoid vaccine, parentera l, other than acetone-k illed, dried DoD influenza virus vaccine, split virus (incl. purified surface antigen)-reti red CODE 1 2005 [id number] 15 Other (OTH) complet ed influenza virus vaccine, split virus (incl. purified surface antigen)- retired CODE DoD varicella virus vaccine 0 2005 21 () complet ed varicella virus vaccine DoD tetanus and diphtheria toxoids, adsorbed, preservative free, for adult use (2 Lf of tetanus toxoid and 2 Lf of diphtheria toxoid) 1 2005 [id number] Sanofi Pasteur ([facility]) complet ed tetanus and diphtheri a toxoids, adsorbed, preservat darius free, for adult use (2 Lf of tetanus toxoid and 2 Lf of diphtheri a toxoid) DoD influenza virus vaccine, split virus (incl. purified surface antigen)-reti red CODE 1 2004 [id number] 15 [facility] P[facility] ([facility]) complet ed influenza virus vaccine, split virus (incl. purified surface antigen)- retired CODE DoD typhoid vaccine, parenteral, other than acetone-kille d, dried 1 2004 [id number] 41 [facility] ([facility]) complet ed typhoid vaccine, parentera l, other than acetone-k illed, dried DoD influenza virus vaccine, split virus (incl. purified surface antigen)-reti red CODE 1 2002 [id number] 15 Sanofi Pasteur ([facility]) complet ed influenza virus vaccine, split virus (incl. purified surface antigen)- retired CODE DoD hepatitis B vaccine, adult dosage 3 2002 [id number] 43 [employer] (SKB) complet ed hepatitis B vaccine, adult dosage DoD HEP B, ADULT 3 2002 43 complet ed HISTORICA L INFORMATI ON - FROM OTHER [facility], [facility] anthrax vaccine 3 2002 UNK 24 Unknown (UNK) comple t ed anthrax vaccine DoD anthrax vaccine 4 2002 UNK 24 Unknown (UNK) comple t ed anthrax vaccine DoD hepatitis B vaccine, adult dosage 2 2002 UNK 43 Unknown (UNK) comple t ed hepatitis B vaccine, adult dosage DoD HEP B, ADULT 2 2002 43 complet ed HISTORICA L INFORMATI ON - FROM OTHER REGISTRY, [facility] vaccinia (smallpox) vaccine 0 2002 [id number] Sanofi Pasteur ([facility]) complet ed vaccinia (smallpox ) vaccine DoD anthrax vaccine 3 2002 UNK 24 Unknown (UNK) comple t ed anthrax vaccine DoD measles, mumps and rubella virus vaccine 0 2002 [id number] Merck (MSD) complet ed measles, mumps and rubella virus vaccine DoD influenza virus vaccine, split virus (incl. purified surface antigen)-reti red CODE 0 2002 [id number] 15 Sanofi Pasteur ([facility]) complet ed influenza virus vaccine, split virus (incl. purified surface antigen)- retired CODE DoD anthrax vaccine 1 2002 [id number] [facility] [employer] ([facility]) complet ed anthrax vaccine DoD meningococcal polysaccharid e vaccine (MPSV4) 0 2002 [id number] 32 Sanofi Pasteur ([facility]) complet ed meningoco ccal polysacch aride vaccine (MPSV4) DoD yellow fever vaccine 0 2002 [id number] 37 Sanofi Pasteur ([facility]) complet ed yellow fever vaccine DoD hepatitis B vaccine, adult dosage 1 2002 [id number] 43 [employer] (SKB) complet ed hepatitis B vaccine, adult dosage DoD hepatitis A vaccine, adult dosage 3 2002 [id number] 52 Merck (MSD) complet ed hepatitis A vaccine, adult dosage DoD typhoid Vi capsular polysaccharid e vaccine 0 2002 [id number] 101 Sanofi Pasteur (PMC) complet ed typhoid Vi capsular polysacch aride vaccine DoD HEP A-HEP B 1 2002 104 complet ed HISTORICA L INFORMATI ON - FROM OTHER REGISTRY, [facility] anthrax vaccine 1 2002 [id number] [employer] [facility] ([facility]) complet ed anthrax vaccine DoD hepatitis A vaccine, adult dosage 2 1999 UNK 52 Unknown (UNK) comple t ed hepatitis A vaccine, adult dosage DoD HEP A, UNSPECIFIED FORMULATION 1999 85 complet ed HISTORICA L INFORMATI ON - FROM OTHER REGISTRY, [facility] hepatitis A vaccine, adult dosage 1 1998 UNK 52 Unknown (UNK) comple t ed hepatitis A vaccine, adult dosage DoD HEP A, UNSPECIFIED FORMULATION 1998 85 complet ed HISTORICA L INFORMATI ON - FROM OTHER REGISTRY, [facility] measles, mumps and rubella virus vaccine 0 [...] Reference Range Date Interpretation Specimen Comments Source BASIC METABOLIC PANEL (fasting) UREA NITROGEN [MASS/VOLUM E] IN SERUM OR PLASMA 14 mg/dL 7 - 25 06/10 Specimen Type: SERUM No comment entered. Ordering Provider: KO SHEPARD Report Released Date/Time: Jun 10, 2024 09:46 AM Reporting Lab: [address] [address] Performing Lab: [address] [address] [place] BASIC METABOLIC PANEL (fasting) GLUCOSE [MASS/VOLUM E] IN SERUM OR PLASMA 97 mg/dL 65 - 100 06/10 Specimen Type: SERUM No comment entered. Ordering Provider: KO SHEPARD Report Released Date/Time: Jun 10, 2024 09:46 AM Reporting Lab: [address] [address] Performing Lab: [address] [address] [place] BASIC METABOLIC PANEL (fasting) SODIUM [MOLES/VOLU ME] IN SERUM OR PLASMA 138 mmol/L 135 - 145 06/10 Specimen Type: SERUM No comment entered. Ordering Provider: KO SHEPARD Report Released Date/Time: Jun 10, 2024 09:46 AM Reporting Lab: [address] [address] Performing Lab: [address] [address] [place] BASIC METABOLIC PANEL (fasting) POTASSIUM [MOLES/VOLU ME] IN SERUM OR PLASMA 4.3 mmol/L 3.5 - 5.0 06/10 Specimen Type: SERUM No comment entered. Ordering Provider: KO SHEPARD Report Released Date/Time: Jun 10, 2024 09:46 AM Reporting Lab: [facility]ITAL[facility]N [facility] [address] [address] Performing Lab: [facility]PITALRST[facility] CLAIRN [facility]ENTERUSECOLUMB[facility] [address] [address] [place] BASIC METABOLIC PANEL (fasting) CHLORIDE [MOLES/VOLU ME] IN SERUM OR PLASMA 106 mmol/L 100 - 110 06/10 Specimen Type: SERUM No comment entered. Ordering Provider: KO SHEPARD Report Released Date/Time: Jun 10, 2024 09:46 AM Reporting Lab: [facility]OSPITALRENCOM[facility] DOTHANTRN [facility] [address] [address] Performing Lab: [facility]N [address] [address] [place] BASIC METABOLIC PANEL (fasting) CARBON DIOXIDE, TOTAL [MOLES/VOLU ME] IN SERUM OR PLASMA 26 meq/L 20 - 30 06/10 Specimen Type: SERUM No comment entered. Ordering Provider: KO SHEPARD Report Released Date/Time: Jun 10, 2024 09:46 AM Reporting Lab: [facility]PITALRENCOMPASS [facility]IL[facility] HOSP[facility] DOTHANTRN [facility]ENTERUSECOLUMB[facility] [address] [address] Performing Lab: [facility]PITALRST[facility] CLAIRN [facility]ENTERUSECOLUMB[facility] [address] [address] [place] BASIC METABOLIC PANEL (fasting) CREATININE [MASS/VOLUM E] IN SERUM OR PLASMA 1.02 mg/dL 0.50 - 1.40 06/10 Specimen Type: SERUM No comment entered. Ordering Provider: KO SHEPARD Report Released Date/Time: Jun 10, 2024 09:46 AM Reporting Lab: [facility]OSPITALRL TRN [facility]ENTERUSECOLUMB[facility] [address] [address] Performing Lab: [facility]PITALRST[facility] CLAIRN [facility] CENTERUSE[address] [address] [place] BASIC METABOLIC PANEL (fasting) GLOMERULAR FILTRATION RATE/1.73 SQ M.PREDICTED [VOLUME RATE/AREA] IN SERUM, PLASMA OR BLOOD BY CREATININE- BASED FORMULA (CKD-EPI 2020) >90mL/ min 60 06/10 Specimen Type: SERUM No comment entered. Ordering Provider: KO SHEPARD Report Released Date/Time: Jun 10, 2024 09:46 AM Reporting Lab: [facility] [place] [address] [address] Performing Lab: [facility] [place] [address] [address] [place] CBC AND DIFF (AUTO) LEUKOCYTES [#/VOLUME] IN BLOOD BY AUTOMATED COUNT 3.69 10*3/u L 4.50 - 11.00 06/10 L Specimen Type: BLOOD No comment entered. Ordering Provider: KO SHEPARD Report Released Date/Time: Jun 10, 2024 09:46 AM Reporting Lab: [facility] [place] [address] [address] Performing Lab: [facility] [place] [address] [address] [place] CBC AND DIFF (AUTO) ERYTHROCYTE S [#/VOLUME] IN BLOOD BY AUTOMATED COUNT 4.79 10*6/u L 4.23 - 5.66 06/10 Specimen Type: BLOOD No comment entered. Ordering Provider: KO SHEPARD Report Released Date/Time: Jun 10, 2024 09:46 AM Reporting Lab: [facility] [place] [address] [address] Performing Lab: [facility]PITALRL [facility] [place] [address] [address] [place] CBC AND DIFF (AUTO) HEMOGLOBIN [MASS/VOLUM E] IN BLOOD 14.9 g/dL 12.8 - 17 06/10 Specimen Type: BLOOD No comment entered. Ordering Provider: KO SHEPARD Report Released Date/Time: Jun 10, 2024 09:46 AM Reporting Lab: [facility] [place] [facility] [address] [address] Performing Lab: [facility]OSPITALRL TRN [facility] CENTERUSETS [facility] [address] [address] [place] CBC AND DIFF (AUTO) HEMATOCRIT [VOLUME FRACTION] OF BLOOD BY AUTOMATED COUNT 42.2 39.2 - 50.4 06/10 Specimen Type: BLOOD No comment entered. Ordering Provider: KO SHEPARD Report Released Date/Time: Jun 10, 2024 09:46 AM Reporting Lab: [facility]OSPITALRL TRN [facility] CENTERUSETS [facility] [address] [address] Performing Lab: [facility]PITALRST. [facility] CLAIRN [facility] CENTERUSETS [facility] [address] [address] [place] CBC AND DIFF (AUTO) MCV [ENTITIC VOLUME] BY AUTOMATED COUNT 88.1 fL 82 - 99 06/10 Specimen Type: BLOOD No comment entered. Ordering Provider: KO SHEPARD Report Released Date/Time: Jun 10, 2024 09:46 AM Reporting Lab: [facility]OSPITALRENCOMPASS HEALTH REHABILITATION HOSPITAL OF DOTHANTRN [place] [facility] [address] [address] Performing Lab: [facility]OSPITALRL TRN [facility]ENTERUSETS [facility] [address] [address] [place] CBC AND DIFF (AUTO) MCHC [MASS/VOLUM E] BY AUTOMATED COUNT 35.3 g/dL 30.8 - 35.1 06/10 H Specimen Type: BLOOD No comment entered. Ordering Provider: KO SHEPARD Report Released Date/Time: Jun 10, 2024 09:46 AM Reporting Lab: [facility]OSPITALRENCOMPASS [facility] REHABILITATION HOSP[facility] DOTHANTRN [facility] CENTERUSETS [facility] [address] [address] Performing Lab: [facility]ITALRENCOMPASS [facility]ABILIT[facility] HOSP[facility] DOTHANTRN [facility] CENTERUSETS [address] [address] [place] CBC AND DIFF (AUTO) PLATELETS [#/VOLUME] IN BLOOD BY AUTOMATED COUNT 259 10*3/u L 140 - 360 06/10 Specimen Type: BLOOD No comment entered. Ordering Provider: KO SHEPARD Report Released Date/Time: Jun 10, 2024 09:46 AM Reporting Lab: [facility] [place] [facility] [address] [address] Performing Lab: [facility] [place] [facility] [address] [address] [place] CBC AND DIFF (AUTO) ERYTHROCYTE DISTRIBUTIO N WIDTH [RATIO] BY AUTOMATED COUNT 11.9 12.0 - 16.0 06/10 L Specimen Type: BLOOD No comment entered. Ordering Provider: KO SHEPARD Report Released Date/Time: Jun 10, 2024 09:46 AM Reporting Lab: [facility] [place] [address] [address] Performing Lab: [facility] [place] [address] [address] [place] CBC AND DIFF (AUTO) MONOCYTES [#/VOLUME] IN BLOOD BY AUTOMATED COUNT 0.29 10*3/u L 0.30 - 1.10 06/10 L Specimen Type: BLOOD No comment entered. Ordering Provider: KO SHEPARD Report Released Date/Time: Jun 10, 2024 09:46 AM Reporting Lab: [facility] [place] [address] [address] Performing Lab: [facility] [place] [address] [address] [place] CBC AND DIFF (AUTO) MCH [ENTITIC MASS] BY AUTOMATED COUNT 31.1 pg 26.2 - 32.6 06/10 Specimen Type: BLOOD No comment entered. Ordering Provider: KO SHEPARD Report Released Date/Time: Jun 10, 2024 09:46 AM Reporting Lab: [facility] [place] [address] [address] Performing Lab: [facility] [place] [address] [address] [place] CBC AND DIFF (AUTO) NEUTROPHILS /100 LEUKOCYTES IN BLOOD BY AUTOMATED COUNT 42.5 43.7 - 75.8 06/10 L Specimen Type: BLOOD No comment entered. Ordering Provider: KO SHEPARD Report Released Date/Time: Jun 10, 2024 09:46 AM Reporting Lab: [facility] [place] [facility] [address] [address] Performing Lab: [facility] [address] [address] [place] CBC AND DIFF (AUTO) LYMPHOCYTES /100 LEUKOCYTES IN BLOOD BY AUTOMATED COUNT 46.6 14.0 - 42.3 06/10 H Specimen Type: BLOOD No comment entered. Ordering Provider: KO SHEPARD Report Released Date/Time: Jun 10, 2024 09:46 AM Reporting Lab: [facility] [address] [address] Performing Lab: [facility] [address] [address] [place] CBC AND DIFF (AUTO) MONOCYTES/1 00 LEUKOCYTES IN BLOOD BY AUTOMATED COUNT 7.9 5.1 - 13.7 06/10 Specimen Type: BLOOD No comment entered. Ordering Provider: KO SHEPARD Report Released Date/Time: Jun 10, 2024 09:46 AM Reporting Lab: [facility] [place] [address] [address] Performing Lab: [facility] [place] [address] [address] [place] CBC AND DIFF (AUTO) EOSINOPHILS /100 LEUKOCYTES IN BLOOD BY AUTOMATED COUNT 1.9 0.4 - 6.8 06/10 Specimen Type: BLOOD No comment entered. Ordering Provider: KO SHEPARD Report Released Date/Time: Jun 10, 2024 09:46 AM Reporting Lab: [facility] [place] [facility] [address] [address] Performing Lab: [facility] [place] [address] [address] [place] CBC AND DIFF (AUTO) BASOPHILS/1 00 LEUKOCYTES IN BLOOD BY AUTOMATED COUNT 0.8 0.1 - 2.0 06/10 Specimen Type: BLOOD No comment entered. Ordering Provider: KO SHEPARD Report Released Date/Time: Jun 10, 2024 09:46 AM Reporting Lab: [facility]PITALRENCOM[facility] DOTHANTRN [facility] CENTERUSETS [address] [address] Performing Lab: [facility]OSPITALRL TRN [facility] CENTERUSETS [address] [address] [place] CBC AND DIFF (AUTO) NEUTROPHILS [#/VOLUME] IN BLOOD BY AUTOMATED COUNT 1.57 10*3/u L 2.20 - 7.60 06/10 L Specimen Type: BLOOD No comment entered. Ordering Provider: KO SHEPARD Report Released Date/Time: Jun 10, 2024 09:46 AM Reporting Lab: [facility]ITALRST[facility]N [facility]ENTERUSE[address] [address] Performing Lab: [facility]OSPITALRL TRN [facility] CENTERUSETS [address] [address] [place] CBC AND DIFF (AUTO) LYMPHOCYTES [#/VOLUME] IN BLOOD BY AUTOMATED COUNT 1.72 10*3/u L 1.00 - 3.20 06/10 Specimen Type: BLOOD No comment entered. Ordering Provider: KO SHEPARD Report Released Date/Time: Jun 10, 2024 09:46 AM Reporting Lab: [facility]ITALRL TRN [facility]ENTERUSETS [address] [address] Performing Lab: [facility]ITALRL TRN [facility]ENTERUSETS [address] [address] [place] CBC AND DIFF (AUTO) EOSINOPHILS [#/VOLUME] IN BLOOD BY AUTOMATED COUNT 0.07 10*3/u L 0.03 - 0.44 06/10 Specimen Type: BLOOD No comment entered. Ordering Provider: KO SHEPARD Report Released Date/Time: Jun 10, 2024 09:46 AM Reporting Lab: [facility]PITALRL TRN [facility]ENTERUSE[address] [address] Performing Lab: [facility] [address] [address] [place] CBC AND DIFF (AUTO) BASOPHILS [#/VOLUME] IN BLOOD BY AUTOMATED COUNT 0.03 10*3/u L 0.01 - 0.13 06/10 Specimen Type: BLOOD No comment entered. Ordering Provider: KO SHEPARD Report Released Date/Time: Jun 10, 2024 09:46 AM Reporting Lab: [facility]ENTERUSETS [facility] [address] [address] Performing Lab: [facility]ITALRL TRN [facility]ENTERUSE[address] [address] [place] CBC AND DIFF (AUTO) IMMATURE GRANULOCYTE S/100 LEUKOCYTES IN BLOOD BY AUTOMATED COUNT 0.3 0.0 - 0.7 06/10 Specimen Type: BLOOD No comment entered. Ordering Provider: KO SHEPARD Report Released Date/Time: Jun 10, 2024 09:46 AM Reporting Lab: [facility]PITALRL WSTRN [facility]ENTERUSETS [facility] [address] [address] Performing Lab: [facility] TRN [facility]ENTERUSETS [facility] [address] [address] [place] CBC AND DIFF (AUTO) IMMATURE GRANULOCYTE S [#/VOLUME] IN BLOOD 0.01 10*3/u L 0.00 - 0.06 06/10 Specimen Type: BLOOD No comment entered. Ordering Provider: KO SHEPARD Report Released Date/Time: Jun 10, 2024 09:46 AM Reporting Lab: [facility]ITALRL WSTRN [facility]ENTERUSETS [facility] [address] [address] Performing Lab: [facility]PITALRENCOM[facility]IL[facility]OSP[facility] DOTHANTRN [facility] CENTERUSETS [address] [address] [place] CBC AND DIFF (AUTO) NRBC % 0.0 0.0 - 0.0 06/10 Specimen Type: BLOOD No comment entered. Ordering Provider: KO SHEPARD Report Released Date/Time: Jun 10, 2024 09:46 AM Reporting Lab: [facility] [facility]ITALRENCOM[facility]OTHANTRN [place] [facility] [address] [address] Performing Lab: [facility]RL [place]N [place] [address] [address] [place] CBC AND DIFF (AUTO) NRBC, ABS 0.00 10*3/u L 0.00 - 0.00 06/10 Specimen Type: BLOOD No comment entered. Ordering Provider: KO SHEPARD Report Released Date/Time: Jun 10, 2024 09:46 AM Reporting Lab: [facility]ITALRENCOM[facility] DOTHANTRN [place] [address] [address] Performing Lab: [facility]N [facility]ENTERUSE[address] [address] [place] HEMOGLOBI N A1C PANEL HEMOGLOBIN [...] Jun 10, 2024 09:46 AM Reporting Lab: [facility]RST[facility] MASSUSE[address] [address] Performing Lab: [facility]N [facility]ENTERUSE[address] [address] [place] LIPID PANEL FASTING CHOLESTEROL [MASS/VOLUM E] IN SERUM OR PLASMA 203 mg/dL 06/10 H Specimen Type: SERUM No comment entered. Ordering Provider: KO SHEPARD Report Released Date/Time: Jun 10, 2024 09:46 AM Reporting Lab: [facility]N MASSUSE[address] [address] Performing Lab: [facility]N [facility] [address] [address] [place] LIPID PANEL FASTING TRIGLYCERID E [MASS/VOLUM E] IN SERUM OR PLASMA 90 mg/dL 0 - 150 06/10 Specimen Type: SERUM No comment entered. Ordering Provider: KO SHEPARD Report Released Date/Time: Jun 10, 2024 09:46 AM Reporting Lab: [facility] [address] [address] Performing Lab: [facility] [address] [address] [place] LIPID PANEL FASTING CHOLESTEROL IN LDL [MASS/VOLUM E] IN SERUM OR PLASMA BY CALCULATION 138 mg/dL 0 - 129 06/10 H Specimen Type: SERUM No comment entered. Ordering Provider: KO SHEPARD Report Released Date/Time: Jun 10, 2024 09:46 AM Reporting Lab: [address] [address] Performing Lab: [address] [address] [place] LIPID PANEL FASTING CHOLESTEROL .TOTAL/CHOL ESTEROL IN HDL [MASS RATIO] IN SERUM OR PLASMA 4.3 06/10 Specimen Type: SERUM No comment entered. Ordering Provider: KO SHEPARD Report Released Date/Time: Jun 10, 2024 09:46 AM Reporting Lab: [address] [address] Performing Lab: [facility]N [address] [address] [place] LIPID PANEL FASTING CHOLESTEROL IN HDL [MASS/VOLUM E] IN SERUM OR PLASMA 47 mg/dL 40 - 60 06/10 Specimen Type: SERUM No comment entered. Ordering Provider: KO SHEPARD Report Released Date/Time: Jun 10, 2024 09:46 AM Reporting Lab: [address] [address] Performing Lab: [facility]ITALRL WSTR[place] [facility] [address] [address] [place] LIVER FUNCTION PROTEIN [MASS/VOLUM E] IN SERUM OR PLASMA 7.0 g/dL 6.0 - 8.3 06/10 Specimen Type: SERUM No comment entered. Ordering Provider: KO SHEPARD Report Released Date/Time: Jun 10, 2024 09:46 AM Reporting Lab: [facility]ITALRL [place] [facility] [address] [address] Performing Lab: [facility]ITALRL TRN [facility]ENTERUSE[address] [address] [place] LIVER FUNCTION ALBUMIN [MASS/VOLUM E] IN SERUM OR PLASMA 3.8 g/dL 3.5 - 5.0 06/10 Specimen Type: SERUM No comment entered. Ordering Provider: KO SHEPARD Report Released Date/Time: Jun 10, 2024 09:46 AM Reporting Lab: [facility]ITALRL [place] [address] [address] Performing Lab: [facility]ITALRL [place] [address] [address] [place] LIVER FUNCTION ALKALINE PHOSPHATASE [ENZYMATIC ACTIVITY/VO LUME] IN SERUM OR PLASMA 78 U/L 40 - 150 06/10 Specimen Type: SERUM No comment entered. Ordering Provider: KO SHEPARD Report Released Date/Time: Jun 10, 2024 09:46 AM Reporting Lab: [facility]ITALRL [place] [address] [address] Performing Lab: [facility]PITALRENCOMPASS [facility]ILIT[facility] HOSP[facility] OF DOTHANTRN [facility]ENTERUSE[address] [address] [place] LIVER FUNCTION ASPARTATE AMINOTRANSF ERASE [ENZYMATIC ACTIVITY/VO LUME] IN SERUM OR PLASMA 22 U/L 5 - 34 06/10 Specimen Type: SERUM No comment entered. Ordering Provider: KO SHEPARD Report Released Date/Time: Jun 10, 2024 09:46 AM Reporting Lab: [facility] [place] [facility] [address] [address] Performing Lab: PR CNTRL WSTRN [facility]ENTERUSETS [facility] [address] [address] [place] LIVER FUNCTION ALANINE AMINOTRANSF ERASE [ENZYMATIC ACTIVITY/VO LUME] IN SERUM OR PLASMA 28 U/L 06/10 Specimen Type: SERUM No comment entered. Ordering Provider: KO SHEPARD Report Released Date/Time: Jun 10, 2024 09:46 AM Reporting Lab: PR CNTRL WSTRN [facility] [address] [address] Performing Lab: [facility]ITALRL [facility]ERN [facility]ENTERUSECOLUMB[facility] [address] [address] [facility] LIVER FUNCTION BILIRUBIN.T OTAL [MASS/VOLUM E] IN SERUM OR PLASMA 0.5 mg/dL 0.2 - 1.2 06/10 Specimen Type: SERUM No comment entered. Ordering Provider: KO SHEPARD Report Released Date/Time: Jun 10, 2024 09:46 AM Reporting Lab: [facility]ITALRL TRN [facility] [address] [address] Performing Lab: [facility]OSPITALRL TRN [facility]ENTERUSETS [facility] [address] [address] [place] THYROID T4 FREE(FT4) (WROX) THYROXINE (T4) FREE [MASS/VOLUM E] IN SERUM OR PLASMA 1.04 ng/dL 0.6 - 1.6 06/10 Specimen Type: SERUM No comment entered. Ordering Provider: KO SHEPARD Report Released Date/Time: Jun 10, 2024 09:46 AM Reporting Lab: [facility]OS[facility]ITALRL WSTRN [facility]ENTERUSETS [facility] [address] [address] Performing Lab: PR CNTRL [place] [facility] [address] [facility] [facility] [place] [address] [place] TSH THYROTROPIN [UNITS/VOLU ME] IN SERUM OR PLASMA 2.22 u[IU]/ mL 0.35 - 5.00 06/10 Specimen Type: SERUM No comment entered. Ordering Provider: KO SHEPARD Report Released Date/Time: Jun 10, 2024 09:46 AM Reporting Lab: [facility]N [facility] [address] [address] Performing Lab: [facility]N [facility]ENTERUSECOLUMB[facility] [address] [address] [place] VITAMIN D (25-OH) 25-HYDROXYV ITAMIN D3 [MASS/VOLUM E] IN SERUM OR PLASMA 22 ng/mL 20 - 50 06/10 Specimen Type: SERUM No comment entered. Ordering Provider: KO SHEPARD Report Released Date/Time: Jun 10, 2024 09:46 AM Reporting Lab: [facility] SERVICESN [address] [address] Performing Lab: [address] [address] [place] HEPATITIS C ANTIBODY (HCV)-ARC HEPATITIS C VIRUS AB [PRESENCE] IN SERUM NON-RE ACTIVE 06/24 Specimen Type: SERUM Comment: Hep C Ab: No HCV antibody detected. If recent infection is suspected or other evidence suggests HCV infection, consider HCV nucleic acid testing Ordering Provider: KO SHEPARD Report Released Date/Time: Jun 24, 2023 12:28 PM Reporting Lab: [address] [address] Performing Lab: [facility]N [facility]ENTERUSE[address] [address] [place] BASIC METABOLIC PANEL (fasting) UREA NITROGEN [MASS/VOLUM E] IN SERUM OR PLASMA 24 mg/dL 7 - 25 06/24 Specimen Type: SERUM No comment entered. Ordering Provider: KO SHEPARD Report Released Date/Time: Apr 24, 2023 11:20 AM Reporting Lab: [address] [address] Performing Lab: [facility]N [facility]ENTERUSE[address] [address] [place] BASIC METABOLIC PANEL (fasting) GLUCOSE [MASS/VOLUM E] IN SERUM OR PLASMA 88 mg/dL 65 - 100 06/24 Specimen Type: SERUM No comment entered. Ordering Provider: KO SHEPARD Report Released Date/Time: Apr 24, 2023 11:20 AM Reporting Lab: [address] [address] Performing Lab: [address] [address] [place] BASIC METABOLIC PANEL (fasting) SODIUM [MOLES/VOLU ME] IN SERUM OR PLASMA 138 mmol/L 135 - 145 06/24 Specimen Type: SERUM No comment entered. Ordering Provider: KO SHEPARD Report Released Date/Time: Apr 24, 2023 11:20 AM Reporting Lab: [address] [address] Performing Lab: [address] [address] [place] BASIC METABOLIC PANEL (fasting) POTASSIUM [MOLES/VOLU ME] IN SERUM OR PLASMA 4.3 mmol/L 3.5 - 5.0 06/24 Specimen Type: SERUM No comment entered. Ordering Provider: KO SHEPARD Report Released Date/Time: Apr 24, 2023 11:20 AM Reporting Lab: [address] [address] Performing Lab: [address] [address] [place] BASIC METABOLIC PANEL (fasting) CHLORIDE [MOLES/VOLU ME] IN SERUM OR PLASMA 102 mmol/L 100 - 110 06/24 Specimen Type: SERUM No comment entered. Ordering Provider: KO SHEPARD Report Released Date/Time: Apr 24, 2023 11:20 AM Reporting Lab: [address] [address] Performing Lab: [facility]N [facility] [address] [address] [place] [employer] BASIC METABOLIC PANEL (fasting) CARBON DIOXIDE, TOTAL [MOLES/VOLU ME] IN SERUM OR PLASMA 27 meq/L 20 - 30 06/24 Specimen Type: SERUM No comment entered. Ordering Provider: KO SHEPARD Report Released Date/Time: Apr 24, 2023 11:20 AM Reporting Lab: [facility]ITALRST[facility]N [facility]COL[facility] [address] [address] Performing Lab: [address] [address] [place] [employer] BASIC METABOLIC PANEL (fasting) CREATININE [MASS/VOLUM E] IN SERUM OR PLASMA 1.22 mg/dL 0.50 - 1.40 06/24 Specimen Type: SERUM No comment entered. Ordering Provider: KO SHEPARD Report Released Date/Time: Apr 24, 2023 11:20 AM Reporting Lab: [facility] SERVICESN [address] [address] Performing Lab: [facility] SERVICESN [address] [address] [place] [employer] BASIC METABOLIC PANEL (fasting) GLOMERULAR FILTRATION RATE/1.73 SQ M.PREDICTED [VOLUME RATE/AREA] IN SERUM, PLASMA OR BLOOD BY CREATININE- BASED FORMULA (CKD-EPI) 74 mL/min 60 06/24 Specimen Type: SERUM No comment entered. Ordering Provider: KO SHEPARD Report Released Date/Time: Apr 24, 2023 11:20 AM Reporting Lab: [address] [address] Performing Lab: [address] [address] [facility] Vital Signs Combined list of inpatient and outpatient Vital Signs from Department of Defense and Veterans Affairs, ranging from 12 months to all on record, depending upon the facility. Vital Sign Value Date Comments Source SYSTOLIC BLOOD PRESSURE 118 06/10/2024 09:07:12 [place] DIASTOLIC BLOOD PRESSURE 81 06/10/2024 09:07:12 [place] PULSE OXIMETRY 97 06/10/2024 09:07:12 [place] WEIGHT 276.2 06/10/2024 09:07:12 [place] BMI 36 kg/m2 06/10/2024 09:07:12 [place] TEMPERATURE 98.4 06/10/2024 09:07:12 [place] PULSE 70 06/10/2024 09:07:12 [place] SYSTOLIC BLOOD PRESSURE 124 04/27/2024 15:40:04 [place] DIASTOLIC BLOOD PRESSURE 78 04/27/2024 15:40:04 [place] PULSE OXIMETRY 96 04/27/2024 15:40:04 [place] [...] ADM Date DC Date Status Disposition Source [facility](Nut rition [facility] [place]) OUTPATIENT [id number] HLP class [place] 02/24 Released w/o Limitations [facility](N utritio n Cl [place]) [facility]ut r[facility] [place] OUTPATIENT [id number] BCIP class #1 [place] 03/05 Released w/o Limitations [facility](N utritio n Cl [place]) [facility](Nut rition Cl [place]) OUTPATIENT [id number] BCIP class #2 [place] 03/12 Released w/o Limitations [facility](N utritio n Cl [place]) [facility](Nut rition [facility] [place]) OUTPATIENT [id number] [facility] Support Group [place] R 04/02 Released w/o Limitations [facility](N noam n Cl [place]) [facility](Nut terezaion Cl [place]) OUTPATIENT [id number] BCIP SUPPORT GROUP [place] Janet 06/04 Released w/o Limitations [facility](N noam n Cl [place]) [facility] Team A) TELE CONSULT [id number] Notes Entered by: MAGO ZUÑIGA 16 Feb 2013 0906 ------- ------- ------- ------- -- Profile PING FELICIANO 02/16 [facility] Team A) [facility] Team A) TELE CONSULT [id number] Notes Entered by: SARIKA RODRIGUEZ 24 Feb 2013 0940 ------- ------- ------- ------- -- Con Leave BETY GLASS 02/24 [facility] Team A) [facility] Team A) TELE CONSULT [id number] Notes Entered by: ELLI RAMIREZ 23 May 2015 1030 ------- ------- ------- ------- -- Con Leave CHRISTIANO RAMIREZ 05/23 Other Not Elsewhere Classified [facility] Team A) [facility] Team A) TELE CONSULT [id number] Notes Entered by: MONIK BOWLES 01 Jun 2015 0809 ------- ------- ------- ------- -- Con Leave lori THOMPSONDENYTHOMASO Angelica 06/01 [facility] Team A) [facility] Team A) TELE CONSULT [id number] Notes Entered by: ELLI RAMIREZ 20 Jun 2015 0801 ------- ------- ------- ------- -- Profile TOM SHOOKELINA 06/20 Referred for Appointment [facility] Team A) [facility] [employer]([facility] Team A) TELE CONSULT [id number] Notes Entered by: MAGO ZUÑIGA 23 Jun 2015 1359 ------- ------- ------- ------- -- GSU-Pro file TOM SHOOKELINA 06/23 Referred for Appointment [facility] Team A) [employer] [facility] [employer]([facility] Team A) TELE CONSULT [id number] Notes Entered by: MONIK BOWLES 05 Jul 2015 0954 ------- ------- ------- ------- -- CHRISTIANO Pace 07/05 Referred for Appointment [facility] Team A) [employer] [facility] [employer]([facility] Team A) TELE CONSULT [id number] Notes Entered by: MONIK BOWLES 17 Aug 2015 1120 ------- ------- ------- ------- -- CHRISTIANO Pace 08/17 Referred for Appointment [facility] Team A) [employer] [facility] [employer]([facility] Team A) TELE CONSULT [id number] Notes Entered by: ELLI RAMIREZ 17 Aug 2015 1128 ------- ------- ------- ------- -- RAMON Oliver 08/17 Referred for Appointment [facility] Team A) [facility] [employer]([facility] Team A) TELE CONSULT [id number] Notes Entered by: MONIK BOWLES 05 Sep 2015 1246 ------- ------- ------- ------- -- Profile CHRISTIANO Mahmood 09/05 Referred for Appointment [facility] Team A) [facility] TELE CONSULT [id number] Notes Entered by: Stephany GRAFF 15 Sep 2015 1325 ------- ------- ------- ------- -- Profile WILVERLEONARDO SCHROEDERAngelia Alicea 09/15 Referred for Appointment [facility] Team A) [facility] En[facility] [id number] 10/28 [facility] En[facility] [id number] 12/12 [facility] En[facility] [id number] 04/27 [facility] [place] ADMIN [id number] JACKLYN HWANG 06/10 [facility] [place] OFFICE O/P EST LOW 20 MIN [id number] Diagnos is: ICD-10- CM Z00.8 Encount er for other general examina tion JACKLYN HWANG 06/10 [place] SELF CARE MNGMENT TRAINING [id number] Diagnos is: ICD-10- CM M25.569 Pain in unspeci fied knee CHRIS HARRINGTON 07/06 [place] THERAPEUTI [place] EXERCISES [id number] Diagnos is: ICD-10- CM M25.569 Pain in unspeci fied knee Nixon FRIED 07/15 [place] THERAPEUTI C EXERCISES [id number] Diagnos is: ICD-10- CM M25.569 Pain in unspeci fied knee Nixon FRIED 07/29 [place] [facility] Outpatient Encounter [id number] 07/29 [facility] [place] [facility] [place] THERAPEUTI [place] EXERCISES [id number] Diagnos is: ICD-10- CM M25.569 Pain in unspeci fied knee CHRIS HARRINGTON 08/12 [place] THERAPEUTI C EXERCISES [id number] Diagnos is: ICD-10- CM M25.569 Pain in unspeci fied knee CHRIS HARRINGTON 08/26 [place] [facility] Outpatient Encounter [id number] 1.08/26 [facility] [place] [facility] [place] SLEEP STUDY UNATT&RESP EFFT [id number] 1BY. 37 Diagnos is: ICD-10- CM G47.30 Sleep apnea, unspeci fied DEYANIRAEMIR Castañeda 08/26 [place] THERAPEUTI [place] EXERCISES [id number] [id number] Diagnos is: ICD-10- CM M25.569 Pain in unspeci fied knee CHRIS HARRINGTON 08/30 [place] [facility] Outpatient Encounter [id number] 08/30 [facility] [place] [facility] [facility] [place] THERAPEUTI [place] EXERCISES [id number] Diagnos is: ICD-10- CM M25.569 Pain in unspeci fied knee Nixon FRIED 09/09 [place] SELF CARE MNGMENT TRAINING [id number] 1BY. 61 Diagnos is: ICD-10- CM M25.569 Pain in unspeci fied knee CHRIS HARRINGTON 09/13 [facility] UNATT&RESP EFFT [id number] [id number] Diagnos is: ICD-10- CM R06.83 Snoring EMIR MCMILLAN [facility] 11/11 [place] [facility] UNATT&RESP EFFT [id number] [id number] Diagnos is: ICD-10- CM G47.33 Obstruc tive sleep apnea (adult) ([facility]) VINCENZO MILLER 12/01 [place] [facility] Outpatient Encounter [id number] 12/08 [facility] [place] [facility] AUDIO-ONLY NEW LOW 30 [id number] [id number] Diagnos is: ICD-10- CM G47.33 Obstruc tive sleep apnea (adult) ([facility]) VINCENZO MILLER 01/31 [place] [facility] Outpatient Encounter [id number] 02/01 [facility] [place] [facility] OFFICE O/P NEW LOW 30 MIN [id number] Diagnos is: ICD-10- CM G47.33 Obstruc tive sleep apnea (adult) ([facility]) CHET GAN CTORIA Yessenia 03/21 [facility] [place] [facility] Outpatient Encounter [id number] 03/21 [facility] HEARING AID XM&SLCTN BINAURL [id number] Diagnos is: ICD-10- CM H90.3 Sensori neural hearing loss, bilLUL Christensen 03/23 [facility] Procedures Combined list of: 1) Procedures from Department of Veterans Affairs facilities going back up to thelast 18 months, not all VA non-surgical procedures are included; 2) All procedures from the Department of Defense facilities. Procedure Procedure Type Code Date Perfomer Comments Sourc e PURE TONE AUDIOMETRY (THRESHOLD); AIR ONLY 11/08/2003 [facility] MEDICAL NUTRITION THERAPY; GROUP (2 OR MORE INDIVIDUAL(S)), EACH 30 MINUTES 06/03/2007 [facility] MEDICAL NUTRITION THERAPY; GROUP (2 OR MORE INDIVIDUAL(S)), EACH 30 MINUTES 04/01/2007 [facility] MEDICAL NUTRITION THERAPY; GROUP (2 OR MORE INDIVIDUAL(S)), EACH 30 MINUTES 03/12/2007 [facility] MEDICAL NUTRITION THERAPY; GROUP (2 OR MORE INDIVIDUAL(S)), EACH 30 MINUTES 03/05/2007 [facility] MEDICAL NUTRITION THERAPY; GROUP (2 OR MORE INDIVIDUAL(S)), EACH 30 MINUTES 02/24/2007 [facility] Medical Nutrition Therapy Group (2 or More Individual(s)) Medical Nutrition Therapy Group (2 or More Individual(s)) [id number] 06/04/2007 [place] class time [phone] [facility] Medical Nutrition Therapy Group (2 or More Individual(s)) Medical Nutrition Therapy Group (2 or More Individual(s)) [id number] 04/02/2007 [place] Group [id number] [facility] Medical Nutrition Therapy Group (2 or More Individual(s)) Medical Nutrition Therapy Group (2 or More Individual(s)) [id number] 03/12/2007 [place] Class time [phone] [facility] Medical Nutrition Therapy Group (2 or More Individual(s)) Medical Nutrition Therapy Group (2 or More Individual(s)) [id number] 03/05/2007 [place] Class Time: 7419-9996 [facility] Medical Nutrition Therapy Group (2 or More Individual(s)) Medical Nutrition Therapy Group (2 or More Individual(s)) [id number] 02/24/2007 [place] class time [phone] [facility] Social History Combined list of available smoking, tobacco, and other social history from Department of Defense and Veterans Affairs facilities. Social History Type Response Date Comment Source Tobacco smoking status [facility]TO[facility] FORMER USER 06/10/2024 [facility] of [facility] History of tobacco use PR-TOBACCO FORMER USER 06/24/2023 [facility] History of tobacco use QUIT TOBACCO USE IN PAST YEAR 01/02/2004 3 month ago [facility] History of tobacco use CURRENT SMOKER 12/27/2003 quit 3 months ago [facility] This section is an empty social history section. [facility] Plan of Care List of future care activities from Department of Veterans Affairs facilities. Additional future care activities may be listed in the Assessment and Plan section. Date/Time Care Activity Care Activity Detail Facili ty 04/21/2025 AMBULATORY - REHAB MEDICINE AMBULATORY - REHAB MEDICINE [facility]
== END 2025-03-30 09:22 | disposition home or self-care (01) ==
LOC: HO.LNP 09:21
PROVIDERS: PCP Internal Medicine; Visit Provider Nurse Practitioner
DX: Z01.818 Encounter for other preprocedural examination (principal); R12 Heartburn
CPT/HCPCS: 83013

== ENCOUNTER 2025-06-01 08:54 | Outpatient (REF) | payer BC, SELFPAY ==
--- NOTE | ~2025-06-01 | FL_ITS ---
EXAMINATION: XR BARIUM SWALLOW CLINICAL INFORMATION: Patient complaining of reflux type symptoms. Patient states food gets stuck and comes back up episodically. COMPARISON: None TECHNIQUE: Fluoroscopic air contrast esophagram examination was performed utilizing standard techniques with thin and thick barium and effervescent granules. Numerous spot images were obtained. Several fluoroscopic image hold cine sequences were also obtained. FINDINGS: ESOPHAGRAM: Lateral cine images of the oropharynx and hypopharynx demonstrate normal swallow mechanism with normal epiglottic inversion and soft palate elevation. No laryngeal penetration, glottic or subglottic aspiration identified. No nasopharyngeal reflux present. Hypopharyngeal structures appear normal without evidence of mass or diverticulum. There was no significant cricopharyngeal achalasia. Dual and single contrast images of the esophagus demonstrate normal caliber, contour, and mucosal pattern. No evidence of stricture, mass, or ulcerations identified. Esophageal peristalsis was mildly disordered. No evidence of hiatus hernia identified. Episodic gastroesophageal reflux noted to the level of the thoracic inlet. Dual contrast and single contrast images of the stomach demonstrated normal contour and mucosal pattern without evidence of mass, ulceration, or other abnormality. Contrast freely passed into the gastric antrum and duodenal bulb without delay. Single and air-contrast images of the duodenal bulb demonstrate no abnormality. The duodenal sweep has a normal appearance, course, and mucosal fold appearance. Notable rapid contrast transit of contrast through the small bowel, with contrast seen in the right colon at 2 minutes approximately. The small bowel has a grossly normal mucosal fold pattern. FLUOROSCOPY TIME: 3 minutes, 21 seconds Number of Spot Images: 9 Number of cines obtained: 11 DOSE AREA PRODUCT: 5345 uGy-m2 (microgray-meter squared) FL/FL barium swallow IMPRESSION: 1. Mildly disordered esophageal peristalsis. 2. Episodic gastroesophageal reflux to the level of the aortic arch. 3. Normal-appearing stomach and duodenum. 4. No evidence of hiatus hernia. 5. Rapid transit of contrast through the small bowel into the colon, which was seen after approximately 2 minutes. The small bowel has a normal mucosal fold pattern. This is of uncertain etiology or significance.. This can be seen with malabsorption disorders, IBD, medication induced, and irritable bowel syndrome, among others. Electronically signed by: Uriel Blank MD 06/01/2025 10:07 AM EDT
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
== END 2025-06-01 08:55 | disposition home or self-care (01) ==
LOC: HO.XRAY 08:54
PROVIDERS: PCP Internal Medicine; Visit Provider Nurse Practitioner
DX: Z01.818 Encounter for other preprocedural examination (principal); R12 Heartburn
CPT/HCPCS: 74220

== ENCOUNTER → 2025-06-01 08:55 | Outpatient (BNV) | payer BC, SELFPAY | PROVIDERS: PCP Internal Medicine; Visit Provider Radiology Diagnostic Radiology | DX: K21.9 Gastro-esophageal reflux disease without esophagitis (principal) | CPT/HCPCS: 74246 ==

== ENCOUNTER 2025-07-01 10:43 | Day surgery (SDC) | payer BC, SELFPAY ==
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
[2025-06-29 08:58] VITALS: BMI 35.3
--- NOTE | 2025-06-30 10:29 | HO.ANESPROP2 ---
Documented by User: Mimi Wayne NP 06/30/25 10:33 HPI - Anesthesia Eval Consult details Narrative: 49yo M for Upper Endoscopy and Colonoscopy [facility] Active Problems Active Problems: All Active Problems Pre-op examination (Acute) Vaccine refused by patient (Acute) Chronic heartburn (Acute) Dyslipidemia (Acute) Lumbar degenerative disc disease (Acute) Obstructive sleep apnea (adult) (pediatric) (Acute) Obesity (BMI 30.0-34.9) (Acute) Past Medical History Medical History (Updated 07/01/25 @ 11:33 by Lisette Marroquin RN) Sleep apnea Seizures Vaccine refused by patient Chronic heartburn Dyslipidemia Lumbar degenerative disc disease Obesity (BMI 30.0-34.9) Family History Family History Mother No problems noted. Father No problems noted. Surgical History Surgical History H/O right knee surgery H/O shoulder surgery Social History Social History Housing: House Alcohol intake: current Alcohol intake frequency: a few times a week Alcohol type: beer Patient Tobacco Use Status: Former Tobacco user e-Cigarette/Vaping Use: Never Used Second Hand Smoke Exposure: No Use of substances other than those prescribed or required for medical reasons: No Are you DNR?: No Advance Directives: No Advance Directives Information Provided: Yes service: Yes Current occupational status: employed Cognitive needs: No Hearing needs: No Vision needs: No Meds Allergies Allergy/AdvReac Type Severity Reaction Status Date / Time No Known Allergies (No Known Allergy Verified 03/30/25 09:22 Allergies*) Home Medications ?Medication ?Instructions ?Recorded ?Confirmed ?Last Taken ?Type famotidine 40 mg tablet (Pepcid) 40 mg PO BEDTIME PRN Heartburn 07/01/25 07/01/25 Unknown History Exam Height,Weight and Vital Signs: Height 6 ft 2 in Weight 124.738 kg Assessment and Plan Assessment Anesthesia Assessment: Chart Reviewed Documented by User: Chuck Vazquez MD 07/01/25 13:12 [facility] Past Medical History Medical History (Updated 07/01/25 @ 11:33 by Lisette Marroquin, RN) Sleep apnea Seizures Vaccine refused by patient Chronic heartburn Dyslipidemia Lumbar degenerative disc disease Obesity (BMI 30.0-34.9) Family History Family History Mother No problems noted. Father No problems noted. Family history of problems with anesthesia: No Surgical History Surgical History H/O right knee surgery H/O shoulder surgery History of Problems with Anesthesia: No Social History Social History Housing: House Alcohol intake: current Alcohol intake frequency: a few times a week Alcohol type: beer Patient Tobacco Use Status: Former Tobacco user e-Cigarette/Vaping Use: Never Used Second Hand Smoke Exposure: No Use of substances other than those prescribed or required for medical reasons: No Are you DNR?: No Advance Directives: No Advance Directives Information Provided: Yes service: Yes Current occupational status: employed Cognitive needs: No Hearing needs: No Vision needs: No Meds Allergies Allergy/AdvReac Type Severity Reaction Status Date / Time No Known Allergies (No Known Allergy Verified 03/30/25 09:22 Allergies*) Home Medications ?Medication ?Instructions ?Recorded ?Confirmed ?Last Taken ?Type famotidine 40 mg tablet (Pepcid) 40 mg PO BEDTIME PRN Heartburn 07/01/25 07/01/25 Unknown History Exam Airway Mallampati Class: II TM Dist: <=3cm Neck ROM: Full Loose/Missing/Broken Teeth: No Heart: ok Lungs: ok Assessment and Plan Assessment Anesthesia Assessment: Anesthesia Plan Discussed Final Anesthetic Review Family History of Problems with Anesthesia: No History of Problems with Anesthesia: No NPO: Yes ASA Class: III Final Preanesthetic Review: No Changes in Pt Med Stat, Meds/Allgs Chart Reviewed, Consent Obtained/Reviewed and Anes Risks/Benef Reviewed Patient Risk: Intermediate Procedure Risk: Intermediate Anesthetic Plan Anesthetic Plan: Agree w/ Assess. and Plan and TIVA Disposition: Standard PACU
[2025-07-01 11:34] VITALS: BMI 35.3
[2025-07-01 11:39] VITALS: BP 128/90; PULSE 67; RESP 15; TEMP 36.3; O2SAT 93
[2025-07-01] MEDS: Lactated Ringers 1,000 ML 100 ML IVCONT (11:54)
--- NOTE | 2025-07-01 12:52 | MHC.SHP ---
Pre-Procedural Eval Section A - 24 Hr Update-Section A only Date of Service: 07/01/25 The patient is an INPATIENT: No The patient has been examined within 24 hours of the surgical procedure. The History & Physical has been completed within 30 days and I have reviewed it.: No Section B - Complete if H&P > 30 days Chief Complaint: screening,gerd, Relevant Family History (Specify if Yes): No Relevant Social History: None Present Medications: see Short Stay Collaborative assessment Medical History: Significant History (Chronic heartburn Dyslipidemia Lumbar degenerative disc disease Obesity (BMI 30.0-34.9)) History of Previous Operations: Relevant previous surgery/procedure and date(s) (History of right knee surgery, history of shoulder surgery) Allergies: Allergies Allergy/AdvReac Type Severity Reaction Status Date / Time No Known Allergies (No Known Allergy Verified 03/30/25 09:22 Allergies*) Review of Systems Sugical H&P ROS: Negative: Constitution, Cardiovascular, Respiratory and Gastrointestinal Exam Surgical H&P Exam: Normal: Heart, Normal: Lungs, Normal: Extremities and Normal: Abdomen Plan Diagnosis/Plan: Unchanged I have reviewed the history and physical and performed a pertinent physical examination on my patient. No changes have occurred unless specified. Time Spent With Patient Time: Total time managing care of this patient today ____ minutes.
--- NOTE | 2025-07-01 13:13 | P.OPN-COLO_ITS ---
Colonoscopy Operative Note Operative Note Date of Service: 07/01/25 Narrative: FLEXIBLE TRANSORAL UPPER GASTROINTESTINAL ENDOSCOPY WITH BIOPSIES AND COLONOSCOPY TILL CECUM WITH BIOPSIES AND SNARE POLYPECTOMY Pre-op diagnosis: Colon cancer screening, GERD Post-op diagnosis: Esophagitis, Gastritis, Colon Polyps, Diverticulosis, hemorrhoids Endoscopist:? Vicente Paniagua MD Anesthesia:?MAC UPPER ENDOSCOPY Consent: Indications for the procedure and potential complications of bleeding, perforation, reaction to medications and missed diagnosis were discussed with the patient and informed consent was obtained. Instrument: Olympus GIF H 190 mid size upper endoscope Monitoring: Vital signs and clinical assessment, continuous EKG monitoring, Pulse oximetry, Carbon Dioxide monitoring and blood pressure monitoring were done throughout the procedure. Procedure: The patient was placed in the left lateral decubitis position and pre-procedure medications were administered and a bite block was placed. The endoscope was inserted into the mouth and advanced under direct vision to the third part of duodenum. A careful inspection was made as the upper endoscope was withdrawn including a retroflexed examination of the proximal stomach; Findings and interventions are described below. Findings: Larynx: Normal Esophagus: GE junction at 40 cms. Focal esophagitis with a 1 cms chronic appearing erosion at the GE junction. Two 1 cm tongues of possible Starr's - biopsied.. Stomach: Mild gastric antral erythema - biopsies were obtained to check for Helicobacter pylori. Grade 2 flap valve on retroflexed examination of the cardia. Duodenum: Normal bulb and descending duodenum Intervention: Biopsies as noted above COLONOSCOPY PROCEDURE NOTE Instrument: Olympus CF H 190 L variable stiffness adult colonoscope Monitoring: Vital signs and clinical assessment, intermittent blood pressure monitoring, continuous EKG monitoring, Pulse oximetry and Carbon Dioxide monitoring were done throughout the procedure. Please see anesthesia flowsheet. Colon withdrawl time was 15 minutes. Procedure: The patient was placed in the left lateral decubitis position and pre-procedure medications were administered. After a digital rectal examination of the ano-rectum, the video colonoscope was inserted into the rectum and advanced through the colon to the cecum. The colonoscope was slowly withdrawn in a retrograde panoramic fashion and the colon mucosa was carefully examined including a retroflexed view of the rectum. Findings and interventions are described below. Procedure Difficulty: without difficulty Findings: Terminal Ileum: Not evaluated Cecum: Normal Ascending Colon: Normal Transverse Colon: A 12-15 mm sessile polyp at 65 cms - removed with a hot snare. Descending Colon: A 3-4 mm sessile polyp - removed with a cold biopsy Sigmoid Colon: Moderate diverticulosis Rectum: Normal Ano-rectum: Moderate internal hemorrhoids Colon preparation: Good after some irrigation. [place] Bowel Preparation Scale Right colon; 2 Transverse colon: 3 Left colon; 2 (0 = Unprepared colon segment with mucosa not seen due to solid stool that cannot be cleared. 1 = Portion of mucosa of the colon segment seen, but other areas of the colon segment not well seen due to staining, residual stool and/or opaque liquid. 2 = Minor amount of residual staining, small fragments of stool and/or opaque liquid, but mucosa of colon segment seen well. 3 = Entire mucosa of colon segment seen well with no residual staining, small fragments of stool or opaque liquid) Impression and Post Procedure Diagnosis: Endoscopy Findings: ESOPHAGUS: Focal esophagitis with a 1 cms chronic appearing erosion at the GE junction. Two 1 cm tongues of possible Starr's - biopsied.. STOMACH: Mild antral gastritis DUODENUM: Normal Colonoscopy Findings: Two small to medium sized polyps were removed Moderate diverticulosis seen in the sigmoid colon Moderate hemorrhoids on retroflexed exam - likely source for rectal bleeding. Plan: Pt has a FU appointment on 07/12/25 with Claritza Samaniego NP Repeat Colonoscopy in 3-5 years if polyps are adenomatous and 10 year if polyps are hyperplastic. A summary of above findings and relevant handouts were given to the patient. BIOPSIES SHOWED: A. Gastric antrum, biopsy: Gastric antral mucosa with ectatic vessels, reactive changes, and focal minimal chronic inactive inflammation; negative for intestinal metaplasia and dysplasia. B. Esophagogastric junction, biopsy: Squamocolumnar mucosa with minimal chronic inflammation and focal multilayered epithelium with possible rare goblet cells; negative for dysplasia. C. Colon, transverse, polyp: Tubular adenoma; negative for high-grade dysplasia and carcinoma. D. Colon, descending, polyp: Colonic mucosa with minimal hyperplastic changes on initial levels (see comment). Addendum #1 Immunostain for H. pylori on A is negative. Additional level with AB/PAS on B shows multilayered epithelium and no definitive goblet cells; negative for intestinal metaplasia. Controls stain appropriately. Multilayered epithelium may be associated with Starr's esophagus and follow-up is warranted. Additional tissue levels on D show a tubular adenoma, completely excised; negative for high grade dysplasia and carcinoma. Letter sent to the patient with biopsy results. Placed on the endoscopy recall list for repeat EGD in 1 year (FU of possible Starr's metaplasia) and repeat colonoscopy in 3 years.
[2025-07-01 13:39] VITALS: BP 114/64; PULSE 80; RESP 12; TEMP 36.4; O2SAT 97
[2025-07-01 13:54] VITALS: BP 127/78; PULSE 62; RESP 16; O2SAT 95
== END 2025-07-01 14:22 | disposition home or self-care (01) ==
PROVIDERS: PCP Internal Medicine; Visit Provider Internal Medicine Gastroenterology
PROC: (CPT 45385; principal; 2025-07-01 12:50)
DX: Z12.11 Encounter for screening for malignant neoplasm of colon (principal); D12.3 Benign neoplasm of transverse colon; D12.4 Benign neoplasm of descending colon; K57.30 Diverticulosis of large intestine without perforation or abscess without bleeding; K64.8 Other hemorrhoids; K21.9 Gastro-esophageal reflux disease without esophagitis; K29.50 Unspecified chronic gastritis without bleeding; K20.80 Other esophagitis without bleeding; E78.00 Pure hypercholesterolemia, unspecified; E66.9 Obesity, unspecified; Z68.35 Body mass index [BMI] 35.0-35.9, adult; M51.369 Other intervertebral disc degeneration, lumbar region without mention of lumbar back pain or lower extremity pain; M19.071 Primary osteoarthritis, right ankle and foot; M19.072 Primary osteoarthritis, left ankle and foot; M17.0 Bilateral primary osteoarthritis of knee; G47.33 Obstructive sleep apnea (adult) (pediatric); Z79.899 Other long term (current) drug therapy
CPT/HCPCS: 45385; 45380; 43239; 88305; 88313; 88342; J2003; J2704

== ENCOUNTER → 2025-07-01 10:43 | Outpatient (BNV) | payer BC, SELFPAY | PROVIDERS: PCP Internal Medicine; Visit Provider Internal Medicine Gastroenterology | DX: Z12.11 Encounter for screening for malignant neoplasm of colon (principal); D12.3 Benign neoplasm of transverse colon; D12.4 Benign neoplasm of descending colon; K57.30 Diverticulosis of large intestine without perforation or abscess without bleeding; K64.8 Other hemorrhoids; K21.00 Gastro-esophageal reflux disease with esophagitis, without bleeding; K29.70 Gastritis, unspecified, without bleeding | CPT/HCPCS: 43239; 45380; 45385 ==

== ENCOUNTER 2025-07-12 12:44 | Outpatient (AMB) | payer BC, SELFPAY ==
--- NOTE | 2025-07-12 12:52 | A.OFFVIS_ITS ---
Vital Signs 07/12/25 12:53 Height 6 ft 2 in Weight 271 lb 2.697 oz BMI 34.8 BP 139/96 H Blood Pressure Location Lt brachial Position Sitting Pulse 73 Intake Visit Reasons: s/p EGD and Sterling Siva Intake Note: Live presents in the office as a follow up for his EGD / COLO. CC: States he is here for results - he gets reflux but it is nothing that is concerning for him. 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 Code(s): G47.33 - Obstructive sleep apnea (adult) (pediatric) Category: Medical Plan This is his first colonoscopy. He has had intermittent GERD for a couple of years. He has taken TUMS at bedtime, with mixed effectiveness. HB is is 3-4 times a day and various times not just NOC. He can't ID trigger foods - even gets it with water fasts. No dysphagia, no dyspepsia, no known FHX of similar sx, no stomach or esophageal cancer.. He has not been as active with his joint problems and has tried to lose weight w/o success r/t life and business. He only moves his bowels about 1-2 times a week with soft stools, unsure if he has incomplete evacuation. He has had episodes of [facility]. He has PRITESH but denies any other resp or cardiac problems. No anes or sed problems. No ID problems. There is no known FHX of CRC or polyps. Orders: Orders H Pylori Breath Test Today R12 - Heartburn, Z01.818 - Encounter for other preprocedural examination EGD/Sterling Combo - GI Use Only Today R12 - Heartburn, Z01.818 - Encounter for other preprocedural examination FL barium swallow Today R12 - Heartburn, Z01.818 - Encounter for other preprocedural examination Comprehensive Met. Panel Today R12 - Heartburn, Z01.818 - Encounter for other preprocedural examination Medications: New bisacodyl (Dulcolax (bisacodyl)) 10 mg (2 x 5 mg) PO BEDTIME 4 tabs 0RF 2 days famotidine (Pepcid) 40 mg PO BEDTIME 30 tabs 12RF R12 - Heartburn peg 3350-electrolytes 236-22.74-6.74 -5.86 gram (Golytely) until fecal effluent is clear; do not exceed a total volume of 2,000 mL 240 mL PO Q10M 4,000 mL 0RF 1 day Z12.11 - Encounter for screening for malignant neoplasm of colo LABS Laboratory Tests 10/18/24 03/30/25 10:33 10:25 Estimated GFR > 60 H. pylori Breath Test Negative EGD/COLONOSCOPY 07/01/2025 Findings: Larynx: Normal Esophagus: GE junction at 40 cms. Focal esophagitis with a 1 cms chronic appearing erosion at the GE junction. Two 1 cm tongues of possible Starr's - biopsied.. Stomach: Mild gastric antral erythema - biopsies were obtained to check for Helicobacter pylori. Grade 2 flap valve on retroflexed examination of the cardia. Duodenum: Normal bulb and descending duodenum Findings: Terminal Ileum: Not evaluated Cecum: Normal Ascending Colon: Normal Transverse Colon: A 12-15 mm sessile polyp at 65 cms - removed with a hot snare. Descending Colon: A 3-4 mm sessile polyp - removed with a cold biopsy Sigmoid Colon: Moderate diverticulosis Rectum: Normal Ano-rectum: Moderate internal hemorrhoids Impression and Post Procedure Diagnosis: Endoscopy Findings: ESOPHAGUS: Focal esophagitis with a 1 cms chronic appearing erosion at the GE junction. Two 1 cm tongues of possible Starr's - biopsied.. STOMACH: Mild antral gastritis DUODENUM: Normal Colonoscopy Findings: Two small to medium sized polyps were removed Moderate diverticulosis seen in the sigmoid colon Moderate hemorrhoids on retroflexed exam - likely source for rectal bleeding. Plan: Pt has a FU appointment on 07/12/25 with Claritza Samaniego NP Repeat Colonoscopy in 3-5 years if polyps are adenomatous and 10 year if polyps are hyperplastic. A summary of above findings and relevant handouts were given to the patient. BIOPSIES SHOWED: A. Gastric antrum, biopsy: Gastric antral mucosa with ectatic vessels, reactive changes, and focal minimal chronic inactive inflammation; negative for intestinal metaplasia and dysplasia. B. Esophagogastric junction, biopsy: Squamocolumnar mucosa with minimal chronic inflammation and focal multilayered epithelium with possible rare goblet cells; negative for dysplasia. C. Colon, transverse, polyp: Tubular adenoma; negative for high-grade dysplasia and carcinoma. D. Colon, descending, polyp: Colonic mucosa with minimal hyperplastic changes on initial levels (see comment). Addendum #1 Immunostain for H. pylori on A is negative. Additional level with AB/PAS on B shows multilayered epithelium and no definitive goblet cells; negative for intestinal metaplasia. Controls stain appropriately. Multilayered epithelium may be associated with Starr's esophagus and follow-up is warranted. Additional tissue levels on D show a tubular adenoma, completely excised; negative for high grade dysplasia and carcinoma. Letter sent to the patient with biopsy results. Placed on the endoscopy recall list for repeat EGD in 1 year (FU of possible Starr's metaplasia) and repeat colonoscopy in 3 years. BARIUM SWALLOW 06/01/2025 FINDINGS: ESOPHAGRAM: Lateral cine images of the oropharynx and hypopharynx demonstrate normal swallow mechanism with normal epiglottic inversion and soft palate elevation. No laryngeal penetration, glottic or subglottic aspiration identified. No nasopharyngeal reflux present. Hypopharyngeal structures appear normal without evidence of mass or diverticulum. There was no significant cricopharyngeal achalasia. Dual and single contrast images of the esophagus demonstrate normal caliber, contour, and mucosal pattern. No evidence of stricture, mass, or ulcerations identified. Esophageal peristalsis was mildly disordered. No evidence of hiatus hernia identified. Episodic gastroesophageal reflux noted to the level of the thoracic inlet. Dual contrast and single contrast images of the stomach demonstrated normal contour and mucosal pattern without evidence of mass, ulceration, or other abnormality. Contrast freely passed into the gastric antrum and duodenal bulb without delay. Single and air-contrast images of the duodenal bulb demonstrate no abnormality. The duodenal sweep has a normal appearance, course, and mucosal fold appearance. Notable rapid contrast transit of contrast through the small bowel, with contrast seen in the right colon at 2 minutes approximately. The small bowel has a grossly normal mucosal fold pattern. FLUOROSCOPY TIME: 3 minutes, 21 seconds Number of Spot Images: 9 Number of cines obtained: 11 DOSE AREA PRODUCT: 5345 uGy-m2 (microgray-meter squared) FL/FL barium swallow IMPRESSION: 1. Mildly disordered esophageal peristalsis. 2. Episodic gastroesophageal reflux to the level of the aortic arch. 3. Normal-appearing stomach and duodenum. 4. No evidence of hiatus hernia. 5. Rapid transit of contrast through the small bowel into the colon, which was seen after approximately 2 minutes. The small bowel has a normal mucosal fold pattern. This is of uncertain etiology or significance.. This can be seen with malabsorption disorders, IBD, medication induced, and irritable bowel syndrome, among others. todays visit COUNT INCLUDES THE [facility] Medical History Sleep apnea Seizures Vaccine refused by patient Chronic heartburn Dyslipidemia Lumbar degenerative disc disease Obesity (BMI 30.0-34.9) Surgical History Hx of colonoscopy History of esophagogastroduodenoscopy (EGD) H/O right knee surgery H/O shoulder surgery Family History Mother No problems noted. Father No problems noted. Social History Housing: House Alcohol intake: current Alcohol intake frequency: a few times a week Alcohol type: beer Patient Tobacco Use Status: Former Tobacco user e-Cigarette/Vaping Use: Never Used Second Hand Smoke Exposure: No service: Yes Current occupational status: employed Cognitive needs: No Hearing needs: No Vision needs: No Review of Systems Const Denies fatigue, Denies fever(s), Denies night sweats, Denies poor appetite and Denies weight loss ENT Reports Normal hearing present, Denies dental pain, Denies dysphagia, Denies hearing loss, Denies mouth pain, Denies odynophagia, Denies throat swelling, Denies tongue swelling and Reports other (Dentition adequate) Card Reports no additional complaints Resp Reports no additional complaints GI Details: Denies abdominal pain, Denies melena, Denies bloating, Denies hematochezia, Denies constipation, Denies GI cramping, Denies dysphagia, Denies excessive flatus, Denies early satiety, Reports heartburn, Denies diarrhea, Reports loose stools, Denies nausea, Denies odynophagia, Denies vomiting and Denies hematemesis Musc Reports arthralgias Skin/Breast Denies pruritus, Denies lesions, Denies rash and Denies jaundice Neuro Reports Normal hearing present and Denies Abnormal speech present Endo Denies fatigue Aller/Immun Denies throat swelling and Denies tongue swelling Physical Exam Vital Signs: Last Vital Signs Pulse 73 07/12/25 12:53 BP 139/96 H 07/12/25 12:53 BMI result Body Mass Index 34.8 Const General: cooperative, no acute distress, well developed and well groomed Nutritional Appearance: well nourished and obese centrally obese Orientation/consciousness: oriented to person, oriented to place and oriented to time Limitations: No language barrier HEENT Head: Yes normocephalic and Yes atraumatic Eyes General: appearance normal, both eyes and all related structures Pupils: Equal, round and reactive pupils present Neck Neck: Yes normal visual inspection and Yes no lymphadenopathy Thyroid: Thyroid normal Resp Effort & Inspection: normal respiratory effort and able to speak in complete sentences Auscultation: clear to auscultation bilaterally Cardio Rate: regular rate Rhythm: regular rhythm Heart sounds: Normal, physiologic split S2 sound present Peripheral pulses: radial pulses present and posterior tibial pulses present GI Inspection: No distended, No Abdominal panniculus present and Yes obesity Palpation (GI): Soft to palpation, nontender, no guarding, not rigid and No hepatosplenomegaly present Percussion: Yes normal to percussion Auscultation: normal bowel sounds Rectal Exam - Male: Yes deferred Skin General skin exam: no rashes or lesions noted, turgor normal, skin not dry, no jaundice, No spider nevi and no striae Rashes: no rashes Nails: normal Neuro General: oriented to person, oriented to place and oriented to time Cranial nerves: Yes Equal, round and reactive pupils present and Yes Normal hearing present Speech: No Abnormal speech present Extrem General: Yes normal to inspection, No clubbing, No cyanosis and No edema Psych Appearance: grossly normal and well kempt Mental Status: mental status grossly normal Speech and movement: Normal speech and movement present Affect: normal affect Attitude: cooperative Thought process: Normal thought process present and not confabulating Thought content: Normal thought content present Insight: Fair insight present (Psych) and Limited insight present (Psych) Judgement: Fair judgement present (Psych) and Limited judgement present (Psych) Results Reviewed Results Reviewed: Laboratory Tests 10/18/24 03/30/25 10:33 10:25 Estimated GFR > 60 H. pylori Breath Test Negative EGD/COLONOSCOPY 07/01/2025 Findings: Larynx: Normal Esophagus: GE junction at 40 cms. Focal esophagitis with a 1 cms chronic appearing erosion at the GE junction. Two 1 cm tongues of possible Starr's - biopsied.. Stomach: Mild gastric antral erythema - biopsies were obtained to check for Helicobacter pylori. Grade 2 flap valve on retroflexed examination of the cardia. Duodenum: Normal bulb and descending duodenum Findings: Terminal Ileum: Not evaluated Cecum: Normal Ascending Colon: Normal Transverse Colon: A 12-15 mm sessile polyp at 65 cms - removed with a hot snare. Descending Colon: A 3-4 mm sessile polyp - removed with a cold biopsy Sigmoid Colon: Moderate diverticulosis Rectum: Normal Ano-rectum: Moderate internal hemorrhoids Impression and Post Procedure Diagnosis: Endoscopy Findings: ESOPHAGUS: Focal esophagitis with a 1 cms chronic appearing erosion at the GE junction. Two 1 cm tongues of possible Starr's - biopsied.. STOMACH: Mild antral gastritis DUODENUM: Normal Colonoscopy Findings: Two small to medium sized polyps were removed Moderate diverticulosis seen in the sigmoid colon Moderate hemorrhoids on retroflexed exam - likely source for rectal bleeding. Plan: Pt has a FU appointment on 07/12/25 with Claritza Samaniego NP Repeat Colonoscopy in 3-5 years if polyps are adenomatous and 10 year if polyps are hyperplastic. A summary of above findings and relevant handouts were given to the patient. BIOPSIES SHOWED: A. Gastric antrum, biopsy: Gastric antral mucosa with ectatic vessels, reactive changes, and focal minimal chronic inactive inflammation; negative for intestinal metaplasia and dysplasia. B. Esophagogastric junction, biopsy: Squamocolumnar mucosa with minimal chronic inflammation and focal multilayered epithelium with possible rare goblet cells; negative for dysplasia. C. Colon, transverse, polyp: Tubular adenoma; negative for high-grade dysplasia and carcinoma. D. Colon, descending, polyp: Colonic mucosa with minimal hyperplastic changes on initial levels (see comment). Addendum #1 Immunostain for H. pylori on A is negative. Additional level with AB/PAS on B shows multilayered epithelium and no definitive goblet cells; negative for intestinal metaplasia. Controls stain appropriately. Multilayered epithelium may be associated with Starr's esophagus and follow-up is warranted. Additional tissue levels on D show a tubular adenoma, completely excised; negative for high grade dysplasia and carcinoma. Letter sent to the patient with biopsy results. Placed on the endoscopy recall list for repeat EGD in 1 year (FU of possible Starr's metaplasia) and repeat colonoscopy in 3 years. BARIUM SWALLOW 06/01/2025 FINDINGS: ESOPHAGRAM: Lateral cine images of the oropharynx and hypopharynx demonstrate normal swallow mechanism with normal epiglottic inversion and soft palate elevation. No laryngeal penetration, glottic or subglottic aspiration identified. No nasopharyngeal reflux present. Hypopharyngeal structures appear normal without evidence of mass or diverticulum. There was no significant cricopharyngeal achalasia. Dual and single contrast images of the esophagus demonstrate normal caliber, contour, and mucosal pattern. No evidence of stricture, mass, or ulcerations identified. Esophageal peristalsis was mildly disordered. No evidence of hiatus hernia identified. Episodic gastroesophageal reflux noted to the level of the thoracic inlet. Dual contrast and single contrast images of the stomach demonstrated normal contour and mucosal pattern without evidence of mass, ulceration, or other abnormality. Contrast freely passed into the gastric antrum and duodenal bulb without delay. Single and air-contrast images of the duodenal bulb demonstrate no abnormality. The duodenal sweep has a normal appearance, course, and mucosal fold appearance. Notable rapid contrast transit of contrast through the small bowel, with contrast seen in the right colon at 2 minutes approximately. The small bowel has a grossly normal mucosal fold pattern. FLUOROSCOPY TIME: 3 minutes, 21 seconds Number of Spot Images: 9 Number of cines obtained: 11 DOSE AREA PRODUCT: 5345 uGy-m2 (microgray-meter squared) FL/FL barium swallow IMPRESSION: 1. Mildly disordered esophageal peristalsis. 2. Episodic gastroesophageal reflux to the level of the aortic arch. 3. Normal-appearing stomach and duodenum. 4. No evidence of hiatus hernia. 5. Rapid transit of contrast through the small bowel into the colon, which was seen after approximately 2 minutes. The small bowel has a normal mucosal fold pattern. This is of uncertain etiology or significance.. This can be seen with malabsorption disorders, IBD, medication induced, and irritable bowel syndrome, among others. Assessment & Plan Assessment & Plan (1) Chronic heartburn: Code(s): R12 - Heartburn Category: Medical (2) Esophageal ulcer: Comment: On 06/2025 scope with some deeper tissue biopsy suggestive of Barretts esophagus. Patient unwilling to utilize pharmacologic interventions to manage this so we try putting him on half a tsp of baking soda 3 times a day. He also has p.r.n. famotidine but he uses it very sparingly. He has a significant fear of pharmaceuticals related to potential long-term side effects. 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 - During a recent evaluation, initial suspicion for Starr's esophagus was ob served, accompanied by esophageal erosion, consistent with reports of episodic heartburn. - A significant colon polyp of 12 mm in size was found during a colonoscopy, prompting a three-year surveillance recommendation due to concerns of rapid regrowth. 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 - Concurrently, the patient reports nonspecific joint pain lacking evidence of rheumatoid arthritis or celiac disease. - There is a history of avoiding all prescribed medication, motivated by concerns of potential side effects. Plan Management includes daily baking soda to address acid reflux, avoidance of unnecessary medications over concern of side effects. The patient is due for a follow-up colonoscopy in three years to monitor growth reoccurrence of large polyp. Further examination through blood tests for underlying food sensitivities or celiac disease has been considered, contingent on patient consent. Education addressed risks of untreated gastrointestinal erosion, particularly concerning esophageal cancer. Joint pain remains unremarkable without further pursuit at this time. Patient was informed and verbally consented to the use of an ambient scribe for clinic note documentation during this visit. Patient Instructions - Begin taking 1/2 teaspoon of baking soda in water, three times a day to manage acid reflux. This can be supplemented with as needed use of famotidine for worse symptoms. Extensive time was spent counseling him that left untreated esophageal ulcers can progress to esophageal cancer. Although it is his choice whether or not to treat this, he has to do so with full understanding of the potential risks going forward. He is agreeable to repeating the EGD in 1 year at that time we will see how well the baking soda therapy is working for him. - Schedule a follow-up colonoscopy in three years to check any polyp growth. The procedure was well tolerated. The results were explained and the patient is agreeable to the follow-up interval as stated. The bowel pattern has returned to normal. Education was provided to tell any 1st degree relatives about their findings to be sure that they are screened by age 45. Educated that they will be put on a recall list when it is time for their repeat scope but should they move out of state or away from the hospital they will need to remember along with their primary to repeat the procedure in a timely fashion to avoid any adverse complications. - Have blood work done to check for food allergies and celiac disease to explore the change in stooling since his deployment and the rapid transit seen on the small-bowel follow-through study. There was no finding during the colono scopy were colon biopsies to explain this. - Note any worsening symptoms or concerns and seek medical care if needed. - Maintain a healthy diet and drink plenty of fluids to help with digestion. - Understand the importance of monitoring your symptoms to prevent serious issues. Orders: Orders Rast Allergen Today K22.10 - Ulcer of esophagus without bleeding, R12 - Heartburn, R19.5 - Other fecal abnormalities Transglutaminase IgA Today K22.10 - Ulcer of esophagus without bleeding, R12 - Heartburn, R19.5 - Other fecal abnormalities Transglutaminase Ab IgG Today K22.10 - Ulcer of esophagus without bleeding, R12 - Heartburn, R19.5 - Other fecal abnormalities C Reactive Protein Today K22.10 - Ulcer of esophagus without bleeding, R12 - Heartburn, R19.5 - Other fecal abnormalities Coding Level of Care Code Est Pt Level 4 (67978) Diagnoses Chronic heartburn R12 Esophageal ulcer K22.10 Loose stools R19.5 Tubular adenoma of colon D12.6 Time Spent (min) 35
[2025-07-12 12:53] VITALS: BP 139/96; PULSE 73; BMI 34.8
== END 2025-07-12 13:31 | disposition home or self-care (01) ==
LOC: HO.HGI 12:45
PROVIDERS: PCP Internal Medicine; Visit Provider Nurse Practitioner
DX: R12 Heartburn (principal); K22.10 Ulcer of esophagus without bleeding; R19.5 Other fecal abnormalities; D12.6 Benign neoplasm of colon, unspecified
CPT/HCPCS: 99214

== ENCOUNTER 2025-07-12 12:44 | Outpatient (REF) | payer BC, SELFPAY ==
[2025-07-12 14:43] LABS: Alanine Aminotransferase 39 U/L (0-40); Albumin Level 4.5 g/dL (3.5-5.0); Alkaline Phosphatase 69 U/L (39-117); Anion Gap 12 (12-20); Aspartate Amino Transferase 28 U/L (5-37); Blood Urea Nitrogen 19 mg/dL (9-16); Calcium 9.4 mg/dL (8.4-10.2); Carbon Dioxide 25 mmol/L (22-29); Chloride 107 mmol/L (96-108); Estimated Glomerular Filt Rate > 60; Potassium 3.8 mmol/L (3.3-5.1); Sodium 140 mmol/L (135-145); Total Protein 7.5 g/dL (6.5-8.0)
[2025-07-13 08:14] LABS: Class Almond 0; Class Brazil Nut 0; Class Cashew 0; Class Codfish 0; Class Cow's Milk 0/1; Class Egg white 0; Class Hazelnut 0; Class Macadamia Nut 0; Class Peanut 0; Class Salmon 0; Class Scallop 0; Class Sesame Seed 0; Class Shrimp 0/1; Class Soybean 0; Class Tuna 0; Class Walnut 0; Class Wheat 0; F345-IgE Macadmia Nut <0.10 kU/L
[2025-07-21 09:08] LABS: Transglutaminase Ab IgG <1.0
== END 2025-07-12 12:45 | disposition home or self-care (01) ==
LOC: HO.LAB 12:44
PROVIDERS: PCP Internal Medicine; Visit Provider Nurse Practitioner
DX: R12 Heartburn (principal); K22.10 Ulcer of esophagus without bleeding; R19.5 Other fecal abnormalities; D12.6 Benign neoplasm of colon, unspecified; Z91.09 Other allergy status, other than to drugs and biological substances; Z01.818 Encounter for other preprocedural examination
CPT/HCPCS: 36415; 80053; 86003; 86140; 86364

== ENCOUNTER 2025-07-21 13:58 | Outpatient (REF) | payer BC, SELFPAY ==
--- OUTSIDE RECORDS SUMMARY | 2025-04-21 05:00 | XMS_ITS | Encounter Summary ---
Author Name [facility] Address [address] [place] [id number] Care Team Providers Care Consultant [employer]. Vice President [employer] (Ex ) Name Role Phone JENNIFER KARIMI Primary Care [...] (PPO) ACTIV E LOCAL 1458Nov 24, 2020 [id number] RYDER,MARI EL PATIENT [place]BS [place] (BLUE CARD) PREFERRED PROVIDER ORGANIZAT ION (PPO) ACTIV E LOCAL 1458Nov 24, 2020 [id number] [phone] RYDER,MARI EL PATIENT [employer] [place] (BLUECARD) PREFERRED PROVIDER ORGANIZAT ION (PPO) LOCAL 1458Nov 24, 2020 [id number] RYDER,MARI EL PATIENT [employer] RX PRESCRIPT ION NEUFC W Nov 24, 2020 [id number] MARI RYDER PATIENT [employer] PRESCRIPT ION NEUFC W Nov 24, 2020 [id number] [phone] MARI RYDER PATIENT [employer] PRESCRIPT ION UFCW NE HEALAngelica GUERIN Nov 24, 2020 [id number] [phone] MARI RYDER PATIENT Selected Encounter This section includes the information on record at NH for the Encounter. Date/Time Encounter Type Encounter Description Reason Provider Source April 21, 2025 09:00 AM CONFORMITY EVALUATION AUDIOLOGY ICD-10-CM Z46.1 Encounter for fitting and adjustment of hearing aid JAVID MORALES Encounter Template Text not used by [place] Assessments - Encounter Diagnoses This section includes the primary and secondary diagnoses documented for the Encounter. Date/Time Primary/Secondary Diagnosis Diagnosis Name Provider Source April 21, 2025 09:56 AM PRIMARY Encounter for fitting and adjustment of hearing aid [facility] April 21, 2025 09:56 AM SECONDARY Sensorineural hearing loss, bilateral AMBER STARK [facility] Plan of Treatment: Future Appointments (+ 6 months) and Future Tests (+/- 45 days) The Plan of Treatment section includes future care activities for the patient from all [place] treatmentfacilities. This section includes future appointments and future orders which are active, pending or scheduled. Future Appointments This section includes appointments that were scheduled to occur 6 months from the date of the Encounter, up to a maximum of 20 appointments. The data comes from all [place] treatment facilities. Appointment Date/Time Appointment Type Appointme nt Facility Name Apr 25, 2025 01:00 PM AMBULATORY - NONE [facility] [place] [facility] May 18, 2025 10:30 AM AMBULATORY - NONE [facility] Jun 09, 2025 08:30 AM AM[facility]ULATORY - MEDICINE [facility] Aug 18, 2025 10:00 AM AMBULATORY - NONE [place] Active, Pending, and Scheduled Orders This section includes a listing of several types of active, pending, and scheduled orders, including clinic medications orders, diagnostic test orders, procedure orders and consult orders; where the start date of the order is 45 days before the date of the Encounter or 45 days after the date of theEncounter. The data comes from all [place] treatment facilities. Test Date/Time Test Type Test Details Facility Name May 20, 2025 08:32 AM Consult Order HOME SLEEP STUDY NOX/SPOPC OUTPT Cons Director Of Publications[employer] Choice [employer] Social History: Smoking Status (Most current) and Tobacco Use (All prior to encounter date) This section includes the most current, and the historical, smoking and tobacco- related health factors from the NH facility where the Encounter took place. Current Smoking Status This section includes the most current smoking, or tobacco-related health factor, from the [place] facility where the Encounter took place. Date/Time Current Smoking Status Comment Facil ity Jun 10, 2024 09:00 AM [facility]CO [facility] Tobacco Use History This section includes a history of the smoking, or tobacco-related health factors, that were collected on or before the date of the Encounter. The data comes from the NH facility where the Encounter took place. Date/Time Smoking Status/Tobacco Use Comment F acility Jun 10, 2024 09:00 AM NH-TOBACCO QUIT 15 YRS OR MORE [facility] Jun 24, 2023 11:28 AM VA-TOBACCO FORMER USER [facility] [place] [facility] Jun 24, 2023 11:28 AM NH-TOBACCO QUIT 15 YRS OR MORE [facility] Encounter Notes: All associated encounter notes This section contains the clinical notes associated to the Encounter. Date/Time Encounter Note(s) Provider Source April 21, 2025 09:32 AM AUDIOLOGY NOTE: LOCAL TITLE: AUDIOLOGY STUDENT PROGRESS NOTE STANDARD TITLE: AUDIOLOGY NOTE DATE OF NOTE: APRIL 21, 2025@09:32 ENTRY DATE: APRIL 21, 2025@09:33:12 AUTHOR: MAGO STARK COSIGNER: JAVID MORALES URGENCY: STATUS: COMPLETED AUDIOLOGY STUDENT PROGRESS NOTE Has ADDENDA Diagnosis: bilateral sensorineural hearing loss Hearing Aid Fitting: SUBJECTIVE (S): The was seen for hearing aid fitting and issuance. He had previously been evaluated and found to exhibit significant hearing loss for which amplification was recommended. How does the patient/client best learn? verbal instruction, demonstration Does the patient/client have any cultural and sikh beliefs, emotional barriers, physical or cognitive limitations, and communication barriers which may impact his/her ability to learn? no Desire and motivation to learn? Good OBJECTIVE (O): Physical fit of receivers, domes and hearing aids was good. [employer] verified comfort. Verification of an appropriate acoustic response was obtained using Real Ear measurements (speech mapping) and NAL- NL2 targets. The reported good subjective benefit as well. Hearing aids were found to be meeting targets adequately and MPO was not exceeding estimated UCL. Settings stored in DOMENICO. ASSESSMENT (A): The following device(s) were issued: Make: Oticon Model: Intent1 miniRITE R Serial Numbers: [id number]; [id number] Battery size: RECHARGEABLE Trial Period ends: 09/19/2025 Domes/wax guards, etc.: 8mm open domes/prowax minifit Earmold Information: n/a [employer] Coach size/power: 3/60 detect Program Settings (VC, Programs, Buttons):right raise/left lower Fitting Formula: NAL-NL2 Remote programming: capable Counseling was completed today throughout todays appointment using a standardized curriculum that includes but is not limited to; realistic expectations with amplification in adverse listening environments, acclimatization to own voice and environmental sounds (following real-ear measurements), the importance of consistent use of amplification, proper insertion/removal, care and maintenance (including wax guards/domes if applicable), signal and alerts of devices, and charging/batteries. The was provided the opportunity to practice in office and reports confidence/understanding in all items reviewed. was given written reference materials today. The was informed of and agreed to [place] policy on hearing aid issuance: Users are responsible for the maintenance and security of their devices. Determination of need to replace a hearing aid is made by the [place] valve steamer. Hearing aids will not be replaced in cases of neglect, abuse, or excessive loss. Items issued are for personal use only. Prognosis for successful hearing aid use is good. PLAN (P): 1. Contact clinic with any problems/concerns. 2. The International Outcome Inventory-Hearing Aids (IOI-SANDOVAL) will be mailed to the in four weeks. He was asked to mail back to clinic after completion. Patient Education Education provided on the following topics: hearing aid management Education provided to: P Response to Education: VU, RD, PI Al[place]te Patient P Family F Significant Other SO Verbalizes Understanding VU Returns Demonstration RD Performs Independently PI Lacks Comprehension LC Refused Education RE Not Applicable NA /maria r/ MAGO STARK Signed: 04/21/2025 09:58 /maria r/ Angela ZHOU, ANNA-A STAFF RESIDENTIAL FIELD MANAGER Cosigned: 04/21/2025 10:07 04/21/2025 ADDENDUM STATUS: COMPLETED Supervised and agree with the following, as written by teacher of gifted students clinician, Mago Stark. /Angela Mendes, CCC-A STAFF RESIDENTIAL FIELD MANAGER Signed: 04/21/2025 10:10 [facility]
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
--- OUTSIDE RECORDS SUMMARY | 2025-07-26 10:01 | XMS_ITS | Continuity of Care Document ---
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 It does not include entries that were removed or entered in error. Problem Status Onset Date Problem Type Date of Resolution Comments Source Chronic back pain Active Condition [place] Contact eczema eyelid Active Condition [facility] Dermatophytosis * (ICD-9-CM 110.9) Active Condition [facility] Ganglion cyst of wrist Active Condition Jun 24, 2023 Entered By: JENNIFER VALLECILLO Comment: left [facility] Obesity (SCT [id number]) Active Condition [facility] Obstructive sleep apnea of adult Active Condition Dec 05, 2024 Entered By: JENNIFER VALLECILLO Comment: SEVERE PRITESH 11/2024 [facility] Obstructive sleep apnea of adult Active [facility] Pain of Both Knees (SCT [id number]) Active Condition Jun 24 Entered By: JENNIFER VALLECILLO Comment: chronic, XR knee 04/2022 unremarkable [facility] Pain radiating to left shoulder Active Condition [facility] Tinnitus Active Condition [facility] visit for: administrative purpose Inactive Condition [facility] OVERWEIGHT Active Condition [facility] Patient Education - Dietary Active Condition This [...] written, daily food records with calorie data [facility] Diagnosis: ICD-10-CM Z00.8 Encounter for other general examination Active Diagnosis [facility] Diagnosis: ICD-10-CM G47.33 Obstructive sleep apnea (adult) (pediatric) [facility] [place] [facility] Diagnosis: ICD-10-CM Z46.1 Encounter for fitting and adjustment of hearing aid Active Diagnosis [facility] [place] [facility] Diagnosis: ICD-10-CM H90.3 Sensorineural hearing loss, bilateral Active Diagnosis [facility] [place] [facility] Diagnosis: ICD-10-CM R06.83 Snoring Active Diagnosis [facility] Diagnosis: ICD-10-CM M25.569 Pain in unspecified knee Active Diagnosis [facility] Diagnosis: ICD-10-CM G47.30 Sleep apnea, unspecified Active Diagnosis [facility] Medications Combined list of outpatient medications from [...] DOSING CARD PROVIDED IN BOX TOPICA L 06/11/2025 [id number] JENNIFER THOMSON 2023 100 [place] EYELID CLEANSER,EY E SCRUB PAD USE 1 PAD TOPICALL Y ONCE DAILY TOPICA L 07/09/2025 [id number] 5 JENNIFER THOMSON 2024 60 [place] LIDOCAINE 5% PATCH APPLY 1 PATCH TOPICALL Y ONCE DAILY FOR NERVE PAIN (LEAVE PATCH ON FOR 12 HOURS, THEN REMOVE PATCH) TOPICA L 06/11/2025 [id number] 4 JENNIFER THOMSON 2023 30 [place] OLOPATADINE HCL 0.2% SOLN,OPH INSTILL 1 DROP INTO THE LEFT EYE ONCE DAILY FOR ALLERGIC CONJUNCT IVITIS OPHTHA LMIC 07/09/2025 [id number] 5 JENNIFER THOMSON 2024 2.5 [place] OLOPATADINE HCL 0.7% SOLN,OPH INSTILL 1 DROP INTO THE LEFT EYE ONCE DAILY FOR ALLERGIC CONJUNCT IVITIS OPHTHA LMIC DISCONT INUED (EDIT) 07/09/2025 [id number] 5 JENNIFER THOMSON 2024 2.5 [place] PEG-400 0.4%/PROPYL CIPRIANO GLYCOL 0.3% SOLN,OPH INSTILL 1 DROP INTO THE LEFT EYE EVERY 4 HOURS NEEDED OPHTHA LMIC 07/09/[id number] 5 JENNIFER THOMSON 2024 15 [place] Allergies, Adverse Reactions, Alerts Combined list of allergies from Department of Defense and Veterans Affairs facilities. It does not include entries that were removed or entered in error. Substance Category Reaction Severity Reaction type Status Date Reported Comments Source No Known Allergies Drug allergy (disorder) active 01/02/2008 [facility] Immunizations Combined list of available immunizations from the Department of Defense and Veterans Affairs facilities. Immunization Series Date Given Administered By Site Reaction Lot Number CVX Code Drug History Faculty Member Status Comments Source TDAP 2023 JORGE LUIS SHAIKH RIGHT DELTO ID [id number] complet ed [facility], [facility] Influenza, seasonal, injectable, preservative free 2016 DEV, () Not Given Influenza , seasonal, injectabl e, preservat darius free [facility] influenza, injectable, quadrivalent, preservative free 2015 JOANNE, () Not Given influenza , injectabl e, quadrival ent, preservat darius free Do[facility] Influenza, seasonal, injectable, preservative free 2013 KAYLAN ESPINOSA () Not Given Influenza , seasonal, injectabl e, preservat darius free DoD Influenza, seasonal, injectable 1 2013 [id number] 141 CS [employer] (CSL) complet ed Influenza , seasonal, injectabl e DoD Influenza, seasonal, injectable, preservative free 0 2012 140 (MVX) complet ed Influenza , seasonal, injectabl e, preservat darius free DoD Influenza, seasonal, injectable 1 2012 [id number] 141 CS [employer] (CSL) complet ed Influenza , seasonal, injectabl e DoD TDAP 2011 115 complet ed HISTORICA L INFORMATI ON - FROM OTHER REGISTRY, [facility] [place] [facility] tetanus toxoid, reduced diphtheria toxoid, and acellular pertu is vaccine, adsorbed 0 2011 [id number] Sanofi Pasteur ([facility]) complet ed tetanus toxoid, reduced diphtheri a toxoid, and acellular pertussis vaccine, adsorbed DoD Influenza, seasonal, injectable 0 2011 141 [facility] [employer] (CSL) complet ed Influenza , seasonal, injectabl e DoD Influenza, seasonal, injectable, preservative free 1 2010 140 Nov[employer]is [employer] Gisela. (NOV) complet ed Influenza , seasonal, injectabl e, preservat darius free DoD Influenza, seasonal, injectable 0 2010 141 Nov[employer] Gisela. (NOV) complet ed Influenza , seasonal, injectabl e DoD influenza virus vaccine, live, attenuated, for intranasal use 1 2009 [id number] 111 [employer]. (MED) complet ed influenza virus vaccine, live, attenuate d, for intranasa l use DoD Novel influenza-H1N 1-09, injectable 1 2009 [id number] 1 127 Nov[employer]is [employer] Gisela. (NOV) complet ed Novel influenza -X2N1-89, injectabl e DoD influenza virus vaccine, live, attenuated, for intranasal use 1 2008 [id number] 111 [employer] (MED) complet ed influenza virus vaccine, live, attenuate d, for intranasa l use DoD typhoid Vi capsular polysaccharid e vaccine 1 2008 [id number] 101 Sanofi Pasteur (PMC) complet ed typhoid Vi capsular polysacch aride vaccine DoD influenza virus vaccine, split virus (incl. purified surface antigen)-reti red CODE 1 2007 [id number] 15 [employer] (SKB) complet ed influenza virus vaccine, split virus (incl. purified surface antigen)- retired CODE DoD influenza virus vaccine, split virus (incl. purified surface antigen)-reti red CODE 1 2006 [id number] 15 [employer] (SK) complet ed influenza virus vaccine, split virus (incl. purified surface antigen)- retired CODE DoD typhoid vaccine, parenteral, other than acetone-kille d, dried 1 2006 [id number] 41 Sanofi Pasteur ([facility]) complet ed typhoid vaccine, parentera l, other than acetone-k illed, dried DoD influenza virus vaccine, split virus (incl. purified surface antigen)-reti red CODE 1 2005 [id number] 15 Other (OTH) complet ed influenza virus vaccine, split virus (incl. purified surface antigen)- retired CODE DoD varicella virus vaccine 0 2005 21 () complet ed varicella virus vaccine DoD tetanus and diphtheria toxoids, adsorbed, preservative free, for adult use (2 Lf of tetanus toxoid and 2 Lf of diphtheria toxoid) 1 2005 [id number] Sanofi Pasteur ([facility]) complet ed tetanus and diphtheri a toxoids, adsorbed, preservat darius free, for adult use (2 Lf of tetanus toxoid and 2 Lf of diphtheri a toxoid) DoD influenza virus vaccine, split virus (incl. purified surface antigen)-reti red CODE 1 2004 [id number] 15 Sanofi Pasteur ([facility]) complet ed influenza virus vaccine, split virus (incl. purified surface antigen)- retired CODE DoD typhoid vaccine, parenteral, other than acetone-kille d, dried 1 2004 [id number] 41 Sanofi Pasteur ([facility]) complet ed typhoid vaccine, parentera l, other than acetone-k illed, dried DoD HEP B, ADULT 3 2002 43 complet ed HISTORICA L INFORMATI ON - FROM OTHER REGISTRY, [facility] influenza virus vaccine, split virus (incl. purified surface antigen)-reti red CODE 1 2002 [id number] 15 Sanofi Pasteur ([facility]) complet ed influenza virus vaccine, split virus (incl. purified surface antigen)- retired CODE DoD hepatitis B vaccine, adult dosage 3 2002 [id number] 43 [employer] (SKB) complet ed hepatitis B vaccine, adult dosage DoD anthrax vaccine 3 2002 UNK 24 Unknown (UNK) comple t ed anthrax vaccine DoD HEP B, ADULT 2 2002 43 complet ed HISTORICA L INFORMATI ON - FROM OTHER REGISTRY, [facility] anthrax vaccine 4 2002 UNK 24 Unknown (UNK) comple t ed anthrax vaccine DoD hepatitis B vaccine, adult dosage 2 2002 UNK 43 Unknown (UNK) comple t ed hepatitis B vaccine, adult dosage DoD vaccinia (smallpox) vaccine 0 2002 [id number] Sanofi Pasteur (PMC) complet ed vaccinia (smallpox ) vaccine DoD anthrax vaccine 3 2002 UNK 24 Unknown (UNK) comple t ed anthrax vaccine DoD HEP A-HEP B 1 2002 104 complet ed HISTORICA L INFORMATI ON - FROM OTHER REGISTRY, [facility] measles, mumps and rubella virus vaccine 0 2002 [id number] Merck (MSD) complet ed measles, mumps and rubella virus vaccine DoD influenza virus vaccine, split virus (incl. purified surface antigen)-reti red CODE 0 2002 [id number] 15 Sanofi Pasteur (PMC) complet ed influenza virus vaccine, split virus (incl. purified surface antigen)- retired CODE DoD anthrax vaccine 1 2002 [id number] 24 [employer] ([facility]) complet ed anthrax vaccine DoD meningococcal polysaccharid e vaccine (MPSV4) 0 2002 [id number] 32 Sanofi Pasteur (PMC) complet ed meningoco ccal polysacch aride vaccine (MPSV4) DoD yellow fever vaccine 0 2002 [id number] 37 Sanofi Pasteur (PMC) complet ed yellow fever vaccine DoD hepatitis B vaccine, adult dosage 1 2002 [id number] [id number] 43 [employer] (SKB) complet ed hepatitis B vaccine, adult dosage DoD hepatitis A vaccine, adult dosage 3 2002 [id number] 52 Merck (MSD) complet ed hepatitis A vaccine, adult dosage DoD typhoid Vi capsular polysaccharid e vaccine 0 2002 [id number] 101 Sanofi Pasteur (PMC) complet ed typhoid Vi capsular polysacch aride vaccine DoD anthrax vaccine 1 2002 [id number] [employer] ([facility]) complet ed anthrax vaccine DoD HEP A, UNSPECIFIED FORMULATION 1999 85 complet ed HISTORICA L INFORMATI ON - FROM OTHER REGISTRY, [facility] hepatitis A vaccine, adult dosage 2 1999 UNK 52 Unknown (UNK) comple t ed hepatitis A vaccine, adult dosage DoD HEP A, UNSPECIFIED FORMULATION 1998 85 complet ed HISTORICA L INFORMATI ON - FROM OTHER REGISTRY, [facility] hepatitis A vaccine, adult dosage 1 1998 [...] Jun 10, 2024 09:46 AM Reporting Lab: [facility] [place] [facility] [address] [facility] [address] Performing Lab: [facility] [place] [facility] [address] [facility] [address] [place] BASIC METABOLIC PANEL (fasting) UREA NITROGEN [MASS/VOLUM E] IN SERUM OR PLASMA 14 mg/dL 7 - 25 06/10 Specimen Type: SERUM No comment entered. Ordering Provider: KO SHEPARD Report Released Date/Time: Jun 10, 2024 09:46 AM Reporting Lab: [facility] [address] [facility] [address] Performing Lab: [facility]ITALTRN [facility] [address] [facility] [address] [place] BASIC METABOLIC PANEL (fasting) GLUCOSE [MASS/VOLUM E] IN SERUM OR PLASMA 97 mg/dL 65 - 100 06/10 Specimen Type: SERUM No comment entered. Ordering Provider: KO SHEPARD Report Released Date/Time: Jun 10, 2024 09:46 AM Reporting Lab: [facility]TR[facility] [address] [facility] [address] Performing Lab: [facility] [address] [facility] [address] [place] BASIC METABOLIC PANEL (fasting) SODIUM [MOLES/VOLU ME] IN SERUM OR PLASMA 138 mmol/L 135 - 145 06/10 Specimen Type: SERUM No comment entered. Ordering Provider: KO SHEPARD Report Released Date/Time: Jun 10, 2024 09:46 AM Reporting Lab: [facility]TR[facility] [address] [facility] [address] Performing Lab: [facility]ITALRWALK[facility]ERN [facility] [address] [facility] [address] [place] BASIC METABOLIC PANEL (fasting) POTASSIUM [MOLES/VOLU ME] IN SERUM OR PLASMA 4.3 mmol/L 3.5 - 5.0 06/10 Specimen Type: SERUM No comment entered. Ordering Provider: KO SHEPARD Report Released Date/Time: Jun 10, 2024 09:46 AM Reporting Lab: [facility] [address] [facility] [address] Performing Lab: [facility] [address] [facility] [address] [place] BASIC METABOLIC PANEL (fasting) CHLORIDE [MOLES/VOLU ME] IN SERUM OR PLASMA 106 mmol/L 100 - 110 06/10 Specimen Type: SERUM No comment entered. Ordering Provider: KO SHEPARD Report Released Date/Time: Jun 10, 2024 09:46 AM Reporting Lab: [facility] TRN [address] [address] Performing Lab: [facility] [address] [place] BASIC METABOLIC PANEL (fasting) CARBON DIOXIDE, TOTAL [MOLES/VOLU ME] IN SERUM OR PLASMA 26 meq/L 20 - 30 06/10 Specimen Type: SERUM No comment entered. Ordering Provider: KO SHEPARD Report Released Date/Time: Jun 10, 2024 09:46 AM Reporting Lab: [facility] [address] [facility] [address] Performing Lab: [facility]ITALTRN [facility] [address] [place] BASIC METABOLIC PANEL (fasting) CREATININE [MASS/VOLUM E] IN SERUM OR PLASMA 1.02 mg/dL 0.50 - 1.40 06/10 Specimen Type: SERUM No comment entered. Ordering Provider: KO SHEPARD Report Released Date/Time: Jun 10, 2024 09:46 AM Reporting Lab: [facility] [address] [address] Performing Lab: [facility]ITAL[facility]ITALTRN [facility] [address] [place] BASIC METABOLIC PANEL (fasting) GLOMERULAR FILTRATION RATE/1.73 SQ M.PREDICTED [VOLUME RATE/AREA] IN SERUM, PLASMA OR BLOOD BY CREATININE- BASED FORMULA (CKD-EPI 2020) >90mL/ min 60 06/10 Specimen Type: SERUM No comment entered. Ordering Provider: KO SHEPARD Report Released Date/Time: Jun 10, 2024 09:46 AM Reporting Lab: [facility] [address] [facility] [address] Performing Lab: [facility] [address] [facility] [address] [place] LIPID PANEL FASTING CHOLESTEROL [MASS/VOLUM E] IN SERUM OR PLASMA 203 mg/dL 06/10 H Specimen Type: SERUM No comment entered. Ordering Provider: KO SHEPARD Report Released Date/Time: Jun 10, 2024 09:46 AM Reporting Lab: [address] [address] Performing Lab: [address] [address] [place] LIPID PANEL FASTING TRIGLYCERID E [MASS/VOLUM E] IN SERUM OR PLASMA 90 mg/dL 0 - 150 06/10 Specimen Type: SERUM No comment entered. Ordering Provider: KO SHEPARD Report Released Date/Time: Jun 10, 2024 09:46 AM Reporting Lab: [address] [address] Performing Lab: [address] [address] [place] LIPID PANEL FASTING CHOLESTEROL IN LDL [MASS/VOLUM E] IN SERUM OR PLASMA BY CALCULATION 138 mg/dL 0 - 129 06/10 H Specimen Type: SERUM No comment entered. Ordering Provider: KO SHEPARD Report Released Date/Time: Jun 10, 2024 09:46 AM Reporting Lab: [address] [address] Performing Lab: [address] [address] [place] LIPID PANEL FASTING CHOLESTEROL .TOTAL/CHOL ESTEROL IN HDL [MASS RATIO] IN SERUM OR PLASMA 4.3 06/10 Specimen Type: SERUM No comment entered. Ordering Provider: KO SHEPARD Report Released Date/Time: Jun 10, 2024 09:46 AM Reporting Lab: [facility] [address] Performing Lab: [facility]ITALRLAM[facility]ITALTRN [facility] [address] [address] [place] LIPID PANEL FASTING CHOLESTEROL IN HDL [MASS/VOLUM E] IN SERUM OR PLASMA 47 mg/dL 40 - 60 06/10 Specimen Type: SERUM No comment entered. Ordering Provider: KO SHEPARD Report Released Date/Time: Jun 10, 2024 09:46 AM Reporting Lab: [facility] [address] Performing Lab: [facility]ITALRLAM[facility]PITALTRN [facility]US[facility] [address] [address] [place] LIVER FUNCTION PROTEIN [MASS/VOLUM E] IN SERUM OR PLASMA 7.0 g/dL 6.0 - 8.3 06/10 Specimen Type: SERUM No comment entered. Ordering Provider: KO SHEPARD Report Released Date/Time: Jun 10, 2024 09:46 AM Reporting Lab: [facility]RLAM[facility]PITALTRN [place] [address] [address] Performing Lab: [facility]ITALRLAM[facility]OSPITALTRN [place] [address] [address] [place] LIVER FUNCTION ALBUMIN [MASS/VOLUM E] IN SERUM OR PLASMA 3.8 g/dL 3.5 - 5.0 06/10 Specimen Type: SERUM No comment entered. Ordering Provider: KO SHEPARD Report Released Date/Time: Jun 10, 2024 09:46 AM Reporting Lab: [facility]ITALRLAM[facility]ITALTRN [facility] [address] [address] Performing Lab: [facility] [place] [facility] [address] [facility] [address] [place] LIVER FUNCTION ALKALINE PHOSPHATASE [ENZYMATIC ACTIVITY/VO LUME] IN SERUM OR PLASMA 78 U/L 40 - 150 06/10 Specimen Type: SERUM No comment entered. Ordering Provider: KO SHEPARD Report Released Date/Time: Jun 10, 2024 09:46 AM Reporting Lab: [facility] [place] [address] [address] Performing Lab: [facility] [place] [address] [address] [place] LIVER FUNCTION ASPARTATE AMINOTRANSF ERASE [ENZYMATIC ACTIVITY/VO LUME] IN SERUM OR PLASMA 22 U/L 5 - 34 06/10 Specimen Type: SERUM No comment entered. Ordering Provider: KO SHEPARD Report Released Date/Time: Jun 10, 2024 09:46 AM Reporting Lab: [facility] [place] [place] [address] [address] Performing Lab: [facility] [place] [address] [address] [place] LIVER FUNCTION ALANINE AMINOTRANSF ERASE [ENZYMATIC ACTIVITY/VO LUME] IN SERUM OR PLASMA 28 U/L 06/10 Specimen Type: SERUM No comment entered. Ordering Provider: KO SHEPARD Report Released Date/Time: Jun 10, 2024 09:46 AM Reporting Lab: [facility] [place] [address] [address] Performing Lab: [facility] [place] [address] [address] [place] LIVER FUNCTION BILIRUBIN.T OTAL [MASS/VOLUM E] IN SERUM OR PLASMA 0.5 mg/dL 0.2 - 1.2 06/10 Specimen Type: SERUM No comment entered. Ordering Provider: KO SHEPARD Report Released Date/Time: Jun 10, 2024 09:46 AM Reporting Lab: [facility] [place] [facility] [address] [facility] [address] Performing Lab: [facility]ITALRLAM[facility]ITALTRN [facility] [address] [facility] [address] [place] CBC AND DIFF (AUTO) LEUKOCYTES [#/VOLUME] IN BLOOD BY AUTOMATED COUNT 3.69 10*3/u L 4.50 - 11.00 06/10 L Specimen Type: BLOOD No comment entered. Ordering Provider: KO SHEPARD Report Released Date/Time: Jun 10, 2024 09:46 AM Reporting Lab: [facility]RL [facility] [address] [facility] [address] Performing Lab: [facility] [address] [place] CBC AND DIFF (AUTO) ERYTHROCYTE S [#/VOLUME] IN BLOOD BY AUTOMATED COUNT 4.79 10*6/u L 4.23 - 5.66 06/10 Specimen Type: BLOOD No comment entered. Ordering Provider: KO SHEPARD Report Released Date/Time: Jun 10, 2024 09:46 AM Reporting Lab: [facility] [address] [address] Performing Lab: [facility] [address] [address] [place] CBC AND DIFF (AUTO) HEMOGLOBIN [MASS/VOLUM E] IN BLOOD 14.9 g/dL 12.8 - 17 06/10 Specimen Type: BLOOD No comment entered. Ordering Provider: KO SHEPARD Report Released Date/Time: Jun 10, 2024 09:46 AM Reporting Lab: [facility]ITALRWALK[facility]ERN [facility]USETS [address] [address] Performing Lab: [facility] [address] [address] [place] CBC AND DIFF (AUTO) HEMATOCRIT [VOLUME FRACTION] OF BLOOD BY AUTOMATED COUNT 42.2 39.2 - 50.4 06/10 Specimen Type: BLOOD No comment entered. Ordering Provider: KO SHEPARDKA M Report Released Date/Time: Jun 10, 2024 09:46 AM Reporting Lab: [place] [facility] [place] [address] [address] Performing Lab: [facility] [place] [address] [address] [place] CBC AND DIFF (AUTO) MCV [ENTITIC VOLUME] BY AUTOMATED COUNT 88.1 fL 82 - 99 06/10 Specimen Type: BLOOD No comment entered. Ordering Provider: KO SHEPARD Report Released Date/Time: Jun 10, 2024 09:46 AM Reporting Lab: [facility] [address] [address] Performing Lab: [facility] [address] [address] [place] CBC AND DIFF (AUTO) MCHC [MASS/VOLUM E] BY AUTOMATED COUNT 35.3 g/dL 30.8 - 35.1 06/10 H Specimen Type: BLOOD No comment entered. Ordering Provider: KO SHEPARD Report Released Date/Time: Jun 10, 2024 09:46 AM Reporting Lab: [facility] [address] [address] Performing Lab: [facility] [place] [address] [address] [place] CBC AND DIFF (AUTO) PLATELETS [#/VOLUME] IN BLOOD BY AUTOMATED COUNT 259 10*3/u L 140 - 360 06/10 Specimen Type: BLOOD No comment entered. Ordering Provider: KO SHEPARD Report Released Date/Time: Jun 10, 2024 09:46 AM Reporting Lab: [facility] [address] [address] Performing Lab: [facility] [address] [address] [place] CBC AND DIFF (AUTO) ERYTHROCYTE DISTRIBUTIO N WIDTH [RATIO] BY AUTOMATED COUNT 11.9 12.0 - 16.0 06/10 L Specimen Type: BLOOD No comment entered. Ordering Provider: KO SHEPARD Report Released Date/Time: Jun 10, 2024 09:46 AM Reporting Lab: [facility] [place] [facility] [address] [facility] [address] Performing Lab: [facility] [place] [facility] [address] [facility] [address] [place] CBC AND DIFF (AUTO) MONOCYTES [#/VOLUME] IN BLOOD BY AUTOMATED COUNT 0.29 10*3/u L 0.30 - 1.10 06/10 L Specimen Type: BLOOD No comment entered. Ordering Provider: KO SHEPARD Report Released Date/Time: Jun 10, 2024 09:46 AM Reporting Lab: [facility] [place] [address] [address] Performing Lab: [facility] [place] [address] [address] [place] CBC AND DIFF (AUTO) MCH [ENTITIC MASS] BY AUTOMATED COUNT 31.1 pg 26.2 - 32.6 06/10 Specimen Type: BLOOD No comment entered. Ordering Provider: KO SHEPARD Report Released Date/Time: Jun 10, 2024 09:46 AM Reporting Lab: [facility] [address] [address] Performing Lab: [facility] [address] [address] [place] CBC AND DIFF (AUTO) NEUTROPHILS /100 LEUKOCYTES IN BLOOD BY AUTOMATED COUNT 42.5 43.7 - 75.8 06/10 L Specimen Type: BLOOD No comment entered. Ordering Provider: KO SHEPARD Report Released Date/Time: Jun 10, 2024 09:46 AM Reporting Lab: [facility] [address] [address] Performing Lab: [facility] [address] [address] [place] CBC AND DIFF (AUTO) LYMPHOCYTES /100 LEUKOCYTES IN BLOOD BY AUTOMATED COUNT 46.6 14.0 - 42.3 06/10 H Specimen Type: BLOOD No comment entered. Ordering Provider: KO SHEPARD Report Released Date/Time: Jun 10, 2024 09:46 AM Reporting Lab: [facility] [address] [address] Performing Lab: [facility] [address] [address] [place] CBC AND DIFF (AUTO) MONOCYTES/1 00 LEUKOCYTES IN BLOOD BY AUTOMATED COUNT 7.9 5.1 - 13.7 06/10 Specimen Type: BLOOD No comment entered. Ordering Provider: KO SHEPARD Report Released Date/Time: Jun 10, 2024 09:46 AM Reporting Lab: [facility] [address] [address] Performing Lab: [facility] [address] [address] [place] CBC AND DIFF (AUTO) EOSINOPHILS /100 LEUKOCYTES IN BLOOD BY AUTOMATED COUNT 1.9 0.4 - 6.8 06/10 Specimen Type: BLOOD No comment entered. Ordering Provider: KO SHEPARD Report Released Date/Time: Jun 10, 2024 09:46 AM Reporting Lab: [facility] [address] [address] Performing Lab: [facility] [address] [address] [place] CBC AND DIFF (AUTO) BASOPHILS/1 00 LEUKOCYTES IN BLOOD BY AUTOMATED COUNT 0.8 0.1 - 2.0 06/10 Specimen Type: BLOOD No comment entered. Ordering Provider: KO SHEPARD Report Released Date/Time: Jun 10, 2024 09:46 AM Reporting Lab: [facility] [address] [address] Performing Lab: [facility] [address] [place] [address] [place] CBC AND DIFF (AUTO) NEUTROPHILS [#/VOLUME] IN BLOOD BY AUTOMATED COUNT 1.57 10*3/u L 2.20 - 7.60 06/10 L Specimen Type: BLOOD No comment entered. Ordering Provider: KO SHEPARD Report Released Date/Time: Jun 10, 2024 09:46 AM Reporting Lab: [facility] [address] Performing Lab: [facility] [address] [address] [place] CBC AND DIFF (AUTO) LYMPHOCYTES [#/VOLUME] IN BLOOD BY AUTOMATED COUNT 1.72 10*3/u L 1.00 - 3.20 06/10 Specimen Type: BLOOD No comment entered. Ordering Provider: KO SHEPARD Report Released Date/Time: Jun 10, 2024 09:46 AM Reporting Lab: [facility] [address] Performing Lab: [facility] [address] [place] CBC AND DIFF (AUTO) EOSINOPHILS [#/VOLUME] IN BLOOD BY AUTOMATED COUNT 0.07 10*3/u L 0.03 - 0.44 06/10 Specimen Type: BLOOD No comment entered. Ordering Provider: KO SHEPARD Report Released Date/Time: Jun 10, 2024 09:46 AM Reporting Lab: [facility] [address] [address] Performing Lab: [facility] [address] [place] CBC AND DIFF (AUTO) BASOPHILS [#/VOLUME] IN BLOOD BY AUTOMATED COUNT 0.03 10*3/u L 0.01 - 0.13 06/10 Specimen Type: BLOOD No comment entered. Ordering Provider: KO SHEPARD Report Released Date/Time: Jun 10, 2024 09:46 AM Reporting Lab: [facility] [address] [address] Performing Lab: [facility] [address] [address] [place] CBC AND DIFF (AUTO) IMMATURE GRANULOCYTE S/100 LEUKOCYTES IN BLOOD BY AUTOMATED COUNT 0.3 0.0 - 0.7 06/10 Specimen Type: BLOOD No comment entered. Ordering Provider: KO SHEPARD Report Released Date/Time: Jun 10, 2024 09:46 AM Reporting [facility] [address] [address] [facility]forming [facility]: [facility] [address] [address] [place] CBC AND DIFF (AUTO) IMMATURE GRANULOCYTE S [#/VOLUME] IN BLOOD 0.01 10*3/u L 0.00 - 0.06 06/10 Specimen Type: BLOOD No comment entered. Ordering Provider: KO SHEPARD Report Released Date/Time: Jun 10, 2024 09:46 AM Reporting Lab: [facility] [address] [address] Performing Lab: [facility] [address] [address] [place] CBC AND DIFF (AUTO) NRBC % 0.0 0.0 - 0.0 06/10 Specimen Type: BLOOD No comment entered. Ordering Provider: KO SHEPARD Report Released Date/Time: Jun 10, 2024 09:46 AM Reporting Lab: [facility] [address] [address] Performing Lab: [facility] [address] [address] [place] CBC AND DIFF (AUTO) NRBC, ABS 0.00 10*3/u L 0.00 - 0.00 06/10 Specimen Type: BLOOD No comment entered. Ordering Provider: KO SHEPARD Report Released Date/Time: Jun 10, 2024 09:46 AM Reporting Lab: [facility] [address] [facility] [address] Performing Lab: [address] [address] [place] HEMOGLOBI N A1C PANEL HEMOGLOBIN [...] Jun 10, 2024 09:46 AM Reporting Lab: [facility] [address] [address] Performing Lab: [facility] [address] [facility] [address] [place] TSH THYROTROPIN [UNITS/VOLU ME] IN SERUM OR PLASMA 2.22 u[IU]/ mL 0.35 - 5.00 06/10 Specimen Type: SERUM No comment entered. Ordering Provider: KO SHEPARD Report Released Date/Time: Jun 10, 2024 09:46 AM Reporting Lab: [facility] [address] [facility] [address] Performing Lab: [facility] [address] [address] [place] VITAMIN D (25-OH) 25-HYDROXYV ITAMIN D3 [MASS/VOLUM E] IN SERUM OR PLASMA 22 ng/mL 20 - 50 06/10 Specimen Type: SERUM No comment entered. Ordering Provider: KO SHEPARD Report Released Date/Time: Jun 10, 2024 09:46 AM Reporting Lab[facility] [address] [facility] [address] Performing Lab: [facility] [address] [facility] [address] [place] Vital Signs Combined list of inpatient and outpatient Vital Signs from Department of Defense and Veterans Affairs, ranging from 12 months to all on record, depending upon the facility. Vital Sign Value Date Comments Source SYSTOLIC BLOOD PRESSURE 106 06/09/2025 08:53:23 [facility] DIASTOLIC BLOOD PRESSURE 70 06/09/2025 08:53:23 [facility] PULSE OXIMETRY 96 % 06/09/2025 08:53:23 [place] WEIGHT 277.2 06/09/2025 08:53:23 [place] BMI 36 kg/m2 06/09/2025 08:53:23 [place] TEMPERATURE 97.2 06/09/2025 08:53:23 [place] PULSE 72 06/09/2025 08:53:23 [place] Encounters Combined list of: 1) Encounters from Department of Veterans Affairs facilities going backup to the last 18 months, not all [place] inpatient encounters are included; 2) Encounters from the Department of Defense facilities going backup to 280 months. Location Location Details Encounter Type Encounter Number Reason For Visit Attending Provider ADM Date DC Date Status Disposition Source [facility](Nut rition Cl [place]) OUTPATIENT [id number] HLP class LISETTE [place]GA 02/24 Released w/o Limitations [facility](N utritio n Cl [place]) [facility] r[facility] [place]) OUTPATIENT [id number] BCIP class #1 [place]TE [place] 03/05 Released w/o Limitations [facility](N utritio n Cl [place]) [facility](Nut r[facility] [place]) OUTPATIENT [id number] BCIP class #2 [place]TE [place]GA 03/12 Released w/o Limitations [facility](N utritio n Cl [place]) [facility](Nut rition [facility] [place]) OUTPATIENT [id number] BC[facility] Support Group LISETTE VEGA R 04/02 Released w/o Limitations [facility](N utritio n [place]) [facility]) OUTPATIENT [id number] BCIP SUPPORT GROUP SILVIA LISETTE R 06/04 Released w/o Limitations [facility] [place]) [facility]) TELE CONSULT [id number] Notes Entered by: MAGO ZUÑIGA 16 Feb 2013 0906 ------- ------- ------- ------- -- Profile PING FELICIANO 02/16 [facility] Team [facility]) [facility]) TELE CONSULT [id number] Notes Entered by: SARIKA RODRIGUEZ 24 Feb 2013 0940 ------- ------- ------- ------- -- Con Leave BETY GLASS 02/24 [facility] Team [facility]) [facility]) TELE CONSULT [id number] Notes Entered by: ELLI RAMIREZ 23 May 2015 1030 ------- ------- ------- ------- -- Con Leave CHRISTIANO RAMIREZ 05/23 Other Not Elsewhere Classified [facility] Team A) [facility]) TELE CONSULT [id number] Notes Entered by: MONIK BOWLES 01 Jun 2015 0809 ------- ------- ------- ------- -- Con Leave lori THOMPSONDENYTHOMASO Angelica 06/01 [facility] Team A) [facility]) TELE CONSULT [id number] Notes Entered by: ELLI RAMIREZ 20 Jun 2015 0801 ------- ------- ------- ------- -- Profile TOM SHOOKELINA 06/20 Referred for Appointment [facility] Team A) [facility]) TELE CONSULT [id number] Notes Entered by: MAGO ZUÑIGA 23 Jun 2015 1359 ------- ------- ------- ------- -- GSU-Pro file BOUCHRA ALEX 06/23 Referred for Appointment [facility] Team A) [facility]) TELE CONSULT [id number] Notes Entered by: MONIK BOWLES 05 Jul 2015 0954 ------- ------- ------- ------- -- CHRISTIANO Pace 07/05 Referred for Appointment [facility] Team [facility]) [facility] Team [facility]) TELE CONSULT [id number] Notes Entered by: MONIK BOWLES 17 Aug 2015 1120 ------- ------- ------- ------- -- CHRISTIANO Pace 08/17 Referred for Appointment [facility] Team A) [facility] [employer]([facility]) TELE CONSULT [id number] Notes Entered by: ELLI RAMIREZ 17 Aug 2015 1128 ------- ------- ------- ------- -- RAMON Oliver 08/17 Referred for Appointment [facility] Team A) [facility] Team A) TELE CONSULT [id number] Notes Entered by: MONIK BOWLES 05 Sep 2015 1246 ------- ------- ------- ------- -- Profile CHRISTIANO Mahmood 09/05 Referred for Appointment [facility] Team A) [facility] Team A) TELE CONSULT [id number] Notes Entered by: Stephany GRAFF 15 Sep 2015 1325 ------- ------- ------- ------- -- Profile JOAN PETTIT Nixon 09/15 Referred for Appointment [facility] Team [facility]) [facility] Outpatient Encounter [id number] 04/27 [facility] [place] AD[place] [id number] JACKLYN HWANGCARLOS 06/10 [facility] [place] OFFICE O/P EST LOW 20 MIN [id number] Diagnos is: ICD-10- CM Z00.8 Encount er for other general examina tion JACKLYN HWANGKAYLEY 06/10 [place] SELF CARE MNGMENT TRAINING [id number] [id number] Diagnos is: ICD-10- CM M25.569 Pain in unspeci fied knee CHRIS HARRINGTON 07/06 [place] THERAPEUTI [place] EXERCISES [id number] Diagnos is: ICD-10- CM M25.569 Pain in unspeci fied knee Nixon FRIED MATTHEW 07/15 [place] THERAPEUTI C EXERCISES [id number] [id number] Diagnos is: ICD-10- CM M25.569 Pain in unspeci fied knee Nixon FRIED MATTHEW 07/29 [place] [facility] Out[facility] Encounter [id number] 07/29 [facility] [place] THERAPEUTI C EXERCISES [id number] Diagnos is: ICD-10- CM M25.569 Pain in unspeci fied knee CHRIS HARRINGTON 08/12 [place] THERAPEUTI C EXERCISES [id number] [id number] Diagnos is: ICD-10- CM M25.569 Pain in unspeci fied knee CHRIS HARRINGTON 08/26 [place] [facility] Outpatient Encounter [id number] 08/26 [facility] [place] SLEEP STUDY UNATT&RESP EFFT [id number] 1BY. 37 Diagnos is: ICD-10- CM G47.30 Sleep apnea, unspeci fied DEYANIRAEMIR 08/26 [place] THERAPEUTI [place] EXERCISES [id number] [id number] Diagnos is: ICD-10- CM M25.569 Pain in unspeci fied knee CHRIS HARRINGTON 08/30 [place] [facility] Outpatient Encounter [id number] 1.08/30 [facility] [place] THERAPEUTI [place] EXERCISES [id number] [id number] Diagnos is: ICD-10- CM M25.569 Pain in unspeci fied knee Nixon FRIED 09/09 [place] SELF CARE MNGMENT TRAINING [id number] 1BY. 61 Diagnos is: ICD-10- CM M25.569 Pain in unspeci fied knee CHRIS HARRINGTON 09/13 [place] [facility] Outpatient Encounter [id number] 10/18 [facility] [place] SLEEP STUDY UNATT&RESP EFFT [id number] [id number] Diagnos is: ICD-10- CM R06.83 Snoring DEYANIRAEMIR Castañeda JOSH 11/11 [place] [facility] UNATT&RESP EFFT [id number] [id number] Diagnos is: ICD-10- CM G47.33 Obstruc tive sleep apnea (adult) ([facility]) PAULVINCENZO 12/01 [place] [facility] En[facility] [id number] 12/08 [facility] SYNCH AUDIO-ONLY NEW LOW 30 [id number] [id number] Diagnos is: ICD-10- CM G47.33 Obstruc tive sleep apnea (adult) ([facility]) MILLERVINCENZO 01/31 [place] [facility] Out[facility] Encounter [id number] 02/01 [facility] OFFICE O/P NEW LOW 30 MIN [id number] Diagnos is: ICD-10- CM G47.33 Obstruc tive sleep apnea (adult) ([facility]) CHET GANORIA J 03/21 [facility] Outpatient Encounter [id number] 03/21 [facility] HEARING AID XM&SLCTN BINAURL [id number] Diagnos is: ICD-10- CM H90.3 Sensori neural hearing loss, bilater al LUL PRATHER 03/23 [facility] CONFORMITY EVALUATION [id number] Diagnos is: ICD-10- CM Z46.1 Encount er for fitting and adjustm ent of hearing aid Soheila MORALES 04/21 [facility] [place] [facility] [place] [facility] ORAL DEVICE/ALAN CARRIE MAGALLONFAB [id number] [id number] Diagnos is: ICD-10- CM G47.33 Obstruc tive sleep apnea (adult) ([facility]) CHET GAN CTORIA J 04/25 [facility] [place] [facility] En[facility] [id number] 05/17 [place] [facility] OFFICE O/P EST LOW 20 MIN [id number] Diagnos is: ICD-10- CM G47.33 Obstruc tive sleep apnea (adult) ([facility] josh) CHET GAN CTORIA J 05/18 [facility] [place] [facility] [place] [facility] Outpatient Encounter [id number] 06/09 [facility] [place] [facility] Outpatient Encounter [id number] Diagnos is: ICD-10- CM Z00.8 Encount er for other general examina JACKLYN Huitron 06/09 [facility] [place] Procedures Combined list of: 1) Procedures from Department of Veterans Affairs facilities going back up to thelast 18 months, not all VA non-surgical procedures are included; 2) All procedures from the Department of Defense facilities. Procedure Procedure Type Code Date Perfomer Comments [facility] e Medical Nutrition Therapy Group (2 or More Individual(s)) Medical Nutrition Therapy Group (2 or More Individual(s)) 77349 06/04/2007 [place] class time [phone] [facility] Medical Nutrition Therapy Group (2 or More Individual(s)) Medical Nutrition Therapy Group (2 or More Individual(s)) 96354 04/02/2007 [place] Group [id number] [facility] Medical Nutrition Therapy Group (2 or More Individual(s)) Medical Nutrition Therapy Group (2 or More Individual(s)) 52667 03/12/2007 [place] Class time [phone] [facility] Medical Nutrition Therapy Group (2 or More Individual(s)) Medical Nutrition Therapy Group (2 or More Individual(s)) 42160 03/05/2007 [place] Class Time: [phone] [facility] Medical Nutrition Therapy Group (2 or More Individual(s)) Medical Nutrition Therapy Group (2 or More Individual(s)) 66565 02/24/2007 [place] class time [phone] [facility] PURE TONE AUDIOMETRY (THRESHOLD); AIR ONLY 11/08/2003 [facility] MEDICAL NUTRITION THERAPY; GROUP (2 OR MORE INDIVIDUAL(S)), EACH 30 MINUTES 06/03/2007 [facility] MEDICAL NUTRITION THERAPY; GROUP (2 OR MORE INDIVIDUAL(S)), EACH 30 MINUTES 04/01/2007 [facility] MEDICAL NUTRITION THERAPY; GROUP (2 OR MORE INDIVIDUAL(S)), EACH 30 MINUTES 03/12/2007 [facility] MEDICAL NUTRITION THERAPY; GROUP (2 OR MORE INDIVIDUAL(S)), EACH 30 MINUTES 03/05/2007 [facility] MEDICAL NUTRITION THERAPY; GROUP (2 OR MORE INDIVIDUAL(S)), EACH 30 MINUTES 02/24/2007 [facility] Social History Combined list of available smoking, tobacco, and other social history from Department of Defense and Veterans Affairs facilities. Social History Type Response Date Comment Source Tobacco smoking status [facility] DE-TOBACCO USE FORMER CIGARETTES 06/09/2025 [facility] History of tobacco use DE-TOBACCO NEVER USED OTHER TYPE 06/09/2025 [facility] History of tobacco use VA-TOBACCO FORMER USER 06/10/2024 [facility] History of tobacco use VA-TOBACCO FORMER USER 06/24/2023 [facility] History of tobacco use QUIT TOBACCO USE IN PAST YEAR 01/02/2004 3 month ago [facility] History of tobacco use CURRENT SMOKER 12/27/2003 quit 3 months ago [facility] This section is an empty social history section. [facility] Plan of Care List of future care activities from Department of Veterans Affairs facilities. Additional future care activities may be listed in the Assessment and Plan section. Date/Time Care Activity Care Activity Detail Facili 08/18/2025 AMBULATORY - NONE AMBULATORY - NONE ALYSA ROSS
== END 2025-07-21 13:59 | disposition home or self-care (01) ==
LOC: HO.LAB 13:58
PROVIDERS: Visit Provider Nurse Practitioner
DX: Z13.89 Encounter for screening for other disorder (principal)

== ENCOUNTER 2025-08-12 09:08 | Outpatient (AMB) | payer BC, SELFPAY ==
--- NOTE | 2025-08-12 09:16 | MHC.OFFVIS ---
Vital Signs 08/12/25 09:18 Height 6 ft 2 in Weight 275 lb 9.245 oz BMI 35.4 BP 116/87 Blood Pressure Location Lt brachial Position Sitting Pulse 72 Intake Visit Reasons: 4 w Intake Note: Live presents in the office as a 4 week follow up. CC: He states that he has no concerns today! For reflux instead of pepcid he has been drinking water with baking soda in it - states it is hard to say if it is helping him or not. Service Person Required: No Allergies No Known Allergies (No Known Allergies*) Allergy (Verified 08/12/25 09:18) HPI HPI 4 w: Details: Assessment & Plan (1) Chronic heartburn: Code(s): R12 - Heartburn Category: Medical (2) Esophageal ulcer: Comment: On 06/2025 scope with some deeper tissue biopsy suggestive of Barretts esophagus. Patient unwilling to utilize pharmacologic interventions to manage this so we try putting him on half a tsp of baking soda 3 times a day. He also has p.r.n. famotidine but he uses it very sparingly. He has a significant fear of pharmaceuticals related to potential long-term side effects. 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 - During a recent evaluation, initial suspicion for Starr's esophagus was observed, accompanied by esophageal erosion, consistent with reports of episodic heartburn. - A significant colon polyp of 12 mm in size was found during a colonoscopy, prompting a three-year surveillance recommendation due to concerns of rapid regrowth. 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 - Concurrently, the patient reports nonspecific joint pain lacking evidence of rheumatoid arthritis or celiac disease. - There is a history of avoiding all prescribed medication, motivated by concerns of potential side effects. Plan Management includes daily baking soda to address acid reflux, avoidance of unnecessary medications over concern of side effects. The patient is due for a follow-up colonoscopy in three years to monitor growth reoccurrence of large polyp. Further examination through blood tests for underlying food sensitivities or celiac disease has been considered, contingent on patient consent. Education addressed risks of untreated gastrointestinal erosion, particularly concerning esophageal cancer. Joint pain remains unremarkable without further pursuit at this time. Patient was informed and verbally consented to the use of an ambient scribe for clinic note documentation during this visit. Patient Instructions - Begin taking 1/2 teaspoon of baking soda in water, three times a day to manage acid reflux. This can be supplemented with as needed use of famotidine for worse symptoms. Extensive time was spent counseling him that left untreated esophageal ulcers can progress to esophageal cancer. Although it is his choice whether or not to treat this, he has to do so with full understanding of the potential risks going forward. He is agreeable to repeating the EGD in 1 year at that time we will see how well the baking soda therapy is working for him. - Schedule a follow-up colonoscopy in three years to check any polyp growth. The procedure was well tolerated. The results were explained and the patient is agreeable to the follow-up interval as stated. The bowel pattern has returned to normal. Education was provided to tell any 1st degree relatives about their findings to be sure that they are screened by age 45. Educated that they will be put on a recall list when it is time for their repeat scope but should they move out of state or away from the hospital they will need to remember along with their primary to repeat the procedure in a timely fashion to avoid any adverse complications. - Have blood work done to check for food allergies and celiac disease to explore the change in stooling since his deployment and the rapid transit seen on the small-bowel follow-through study. There was no finding during the colonoscopy were colon biopsies to explain this. - Note any worsening symptoms or concerns and seek medical care if needed. - Maintain a healthy diet and drink plenty of fluids to help with digestion. - Understand the importance of monitoring your symptoms to prevent serious issues. Orders: Orders Rast Allergen Today K22.10 - Ulcer of esophagus without bleeding, R12 - Heartburn, R19.5 - Other fecal abnormalities Transglutaminase IgA Today K22.10 - Ulcer of esophagus without bleeding, R12 - Heartburn, R19.5 - Other fecal abnormalities Transglutaminase Ab IgG Today K22.10 - Ulcer of esophagus without bleeding, R12 - Heartburn, R19.5 - Other fecal abnormalities C Reactive Protein Today K22.10 - Ulcer of esophagus without bleeding, R12 - Heartburn, R19.5 - Other fecal abnormalities LABS: Laboratory Tests 07/12/25 13:58 C-Reactive Protein 0.95 H Tiss Transglutamin IgG <1.0 Tiss Transglutamin IgA <1.0 RAST panel shows mild allergy to cow's milk and shrimp TODAY'S VISIT [facility] Medical History Sleep apnea Seizures Vaccine refused by patient Chronic heartburn Dyslipidemia Lumbar degenerative disc disease Obesity (BMI 30.0-34.9) Surgical History Hx of colonoscopy History of esophagogastroduodenoscopy (EGD) H/O right knee surgery H/O shoulder surgery Family History Mother No problems noted. Father No problems noted. Social History Housing: House Alcohol intake: current Alcohol intake frequency: a few times a week Alcohol type: beer Patient Tobacco Use Status: Former Tobacco user e-Cigarette/Vaping Use: Never Used Second Hand Smoke Exposure: No service: Yes Current occupational status: employed Cognitive needs: No Hearing needs: No Vision needs: No Review of Systems Const Denies fatigue, Denies fever(s), Denies night sweats, Denies poor appetite and Denies weight loss ENT Reports Normal hearing present, Denies dental pain, Denies dysphagia, Denies hearing loss, Denies mouth pain, Denies odynophagia, Denies throat swelling, Denies tongue swelling and Reports other (Dentition adequate) Card Reports no additional complaints Resp Reports no additional complaints GI Details: Denies abdominal pain, Denies melena, Reports bloating, Denies hematochezia, Denies constipation, Denies GI cramping, Denies dysphagia, Denies excessive flatus, Denies early satiety, Reports heartburn, Denies diarrhea, Reports loose stools, Denies nausea, Denies odynophagia, Denies vomiting and Denies hematemesis Skin/Breast Denies pruritus, Denies lesions, Denies rash and Denies jaundice Neuro Reports Normal hearing present and Denies Abnormal speech present Endo Denies fatigue Aller/Immun Denies throat swelling and Denies tongue swelling Physical Exam Vital Signs: Last Vital Signs Pulse 72 08/12/25 09:18 BP 116/87 08/12/25 09:18 BMI result Body Mass Index 35.4 Const General: cooperative, no acute distress, well developed and well groomed Nutritional Appearance: average body habitus and well nourished Orientation/consciousness: oriented to person, oriented to place and oriented to time Limitations: No language barrier HEENT Head: Yes normocephalic and Yes atraumatic Eyes General: appearance normal, both eyes and all related structures Pupils: Equal, round and reactive pupils present Neck Neck: Yes normal visual inspection and Yes no lymphadenopathy Thyroid: Thyroid normal Resp Effort & Inspection: normal respiratory effort and able to speak in complete sentences Auscultation: clear to auscultation bilaterally Cardio Rate: regular rate Rhythm: regular rhythm Heart sounds: Normal, physiologic split S2 sound present Peripheral pulses: radial pulses present and posterior tibial pulses present GI Inspection: No distended and No Abdominal panniculus present Palpation (GI): Soft to palpation, nontender, no guarding, not rigid and No hepatosplenomegaly present Percussion: Yes normal to percussion Auscultation: normal bowel sounds Rectal Exam - Male: Yes deferred Skin General skin exam: no rashes or lesions noted, turgor normal, skin not dry, no jaundice, No spider nevi and no striae Rashes: no rashes Nails: normal Neuro General: oriented to person, oriented to place and oriented to time Cranial nerves: Yes Equal, round and reactive pupils present and Yes Normal hearing present Speech: No Abnormal speech present Extrem General: Yes normal to inspection, No clubbing, No cyanosis and No edema Psych Appearance: grossly normal and well kempt Mental Status: mental status grossly normal Speech and movement: Normal speech and movement present Affect: normal affect Attitude: cooperative Thought process: Normal thought process present and not confabulating Thought content: Normal thought content present Insight: Fair insight present (Psych) Judgement: Fair judgement present (Psych) Assessment & Plan Assessment & Plan (1) Loose stools: Comment: 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 Patient unwilling to utilize pharmacologic interventions to manage this so we try putting him on half a tsp of baking soda 3 times a day. He also has p.r.n. famotidine but he uses it very sparingly. He has a significant fear of pharmaceuticals related to potential long-term side effects. Code(s): K22.10 - Ulcer of esophagus without bleeding Category: Medical (3) Chronic heartburn: Code(s): R12 - Heartburn Category: Medical Plan Live returns today for follow-up with regards to his change in bowel habits associated with bloating and loose stools ever [place]. We ran a RAST allergy test and it showed an allergy to both cow's milk and shrimp. I think the cow's milk could be a contributing factor to his symptoms since it is Omni present in the [place] diet. We discussed trying to avoid milk butter cheese etc. and he does admit that he drinks quite a bit of milk. He is also worried that he will be able to eat pizza because it has cheese. I suggest something like go cheese but he does not like soft cheeses. Apparently there are some hard go cheeses and I print him a list of these. He seems somewhat on committed to trying to make dietary changes, but I found no other reason for the stooling change in terms of celiac disease, his colonoscopy was negative with no signs of microscopic colitis, no signs of inflammatory bowel disease etc.. He had a mildly elevated CRP, but this is very general and could be related to another system of inflammatory reaction in the body. Because he hates pills and was not taking the famotidine we discussed utilizing baking soda 1/2 tsp 3 times a day. He is doing this and finds it helpful in his only question is how much water he needs to mix it in. I tell him he only needs enough to make sure it is dissolved. He does have a history of erosive esophagitis on EGD. Return office visit in 4 months Coding Level of Care Code Est Pt Level 3 (08418) Diagnoses Loose stools R19.5 Esophageal ulcer K22.10 Chronic heartburn R12
[2025-08-12 09:18] VITALS: BP 116/87; PULSE 72; BMI 35.4
== END 2025-08-12 09:52 | disposition home or self-care (01) ==
LOC: HO.HGI 09:09
PROVIDERS: PCP Internal Medicine; Visit Provider Nurse Practitioner
DX: R19.5 Other fecal abnormalities (principal); K22.10 Ulcer of esophagus without bleeding; R12 Heartburn
CPT/HCPCS: 99213